=== PATIENT | female | born 1985 | race Caucasian/White ===

== ENCOUNTER 2021-11-28 12:50 | Outpatient (CLI) | payer MEDICAID, SELFPAY ==
--- NOTE | 2021-11-28 13:00 | CRLHL7_ITS ---
For Patients: As a result of the Century Cures Act, medical imaging exams and procedure reports are released immediately into your electronic medical record. You may view this report before your referring provider. If you have questions, please contact your health care provider. INDICATION: Evaluate anatomy. COMPARISON: none TECHNIQUE: Real time bingham scale imaging of the fetus was performed as well as color Doppler analysis of the umbilical vessels. FINDINGS: Sonographic imaging demonstrates a single living intrauterine gestation. Fetus demonstrates a regular cardiac rate of 147 beats per minute. Fetus has a breech position. The placenta lies anteriorly without evidence of placenta previa. The edge of the placenta is located 8 cm from the internal cervical os. Amniotic fluid volume appears normal. Single deepest vertical pocket: 5.7 cm. The cervix is closed and measures 1.8 cm in length with transvaginal technique. The composite ultrasound gestational age is calculated at 23 weeks 0 days with an estimated sonographic due date of 03/27/2022. The estimated weight is 585 grams. The following biometric measurements were obtained: Biparietal diameter: 5.5 cm/22 weeks 5 days Head circumference: 20.1 cm/22 weeks 1 day Abdominal circumference: 18.9 cm/23 weeks 5 days Femur length: 4.1 cm/23 weeks 2 days The HC/AC ratio measures: 1.06 range (1.05-1.21) On anatomic survey, there is a normal appearance of the cerebral ventricles, cavum septi pellucidi, cisterna magna and cerebellum. The nose, lips, and facial profile appear normal. The cervical, thoracic and lumbar spine are well visualized and appear normal. There is a normal four-chamber heart view and the left and right ventricular outflow tracts appear normal. The diaphragm and stomach appear normal. The kidneys and bladder also appear normal. There is a normal three-vessel cord and cord insertion site. The four extremities appear normal. IMPRESSION: Normal anatomic survey. Sonographic age 23 weeks 0 days and sonographic due date 03/27/22. Dictated by Dmitry Holden MD @ 11/28/2021 2:17:23 PM (Electronically Signed)
== END 2021-11-28 12:51 | disposition home or self-care (01) ==
LOC: US 12:51
PROVIDERS: PCP Obstetrics & Gynecology; Visit Provider Physician Assistant
DX: O09.32 Supervision of pregnancy with insufficient antenatal care, second trimester (principal); O26.872 Cervical shortening, second trimester; O09.292 Supervision of pregnancy with other poor reproductive or obstetric history, second trimester; Z36.89 Encounter for other specified antenatal screening; Z3A.23 23 weeks gestation of pregnancy
CPT/HCPCS: 76805; 76817; 86592; 86703; 86762; 86803; 86850; 86900; 86901; 87086; 87340; 87491; 87591

== ENCOUNTER 2021-12-29 14:53 | Outpatient (CLI) | payer MEDICAID, SELFPAY ==
--- OUTSIDE RECORDS SUMMARY | 2021-12-29 14:26 | XMS_ITS | Encounter Summary ---
:1985 Author Organization [facility] [place] Address [address] [place] [address] Care Team Providers Name Role Phone No Ref-Primary, Physician Primary Care Provider [phone] Reason for Visit Reason Comments Labor Auth/Cert Specialty Diagnoses / Procedures Referred By Contact Refer red To Contact director of rotc Diagnoses Cervical shortening Cervical shortening Ur [facility] [address] [place] [address] Phone: Referral ID Status Reason Start Date Expiration Date Visits Requ ested Visits Authorized [id number] 1 1 Encounter Details Date Type Department Care Team Description 12/01/2021 Surgery [facility] Jacqueline Damon AGE, CERVIX, [facility] DO Anca VAGINAL APPROACH [address] [place] [address] [address] [place], [place] [address] (Wo rk) Surgery Details Date/Time Status Location OR Service Patient Class Case Case Trauma Class Type Case? 12/01/21 9:30 Posted UR L+D UR Z Obstetrics Inpatient AM LD 01 Panel 1 Procedure LRB Anes Op Region Wound Class Commen ts CERCLAGE, CERVIX, VAGINAL APPROACH N/A Spinal Cervix I -Clean Surgeon Surgeon Role Service Panel Jacqueline Damon DO Primary Obstetrics 1 Bev Novoa MD Resident - Assisting 1 documented in this encounter Social History Tobacco Use Types Packs/Day Years Used Date Never Smoker Smokeless Tobacco: Never Used Alcohol Use Standard Drinks/Week Comments Not Currently 0 (1 standard drink = 0.6 oz pure alcoho l) Alcohol Habits Answer Date Recorded How often do you have a drink containing alcohol? Never 02/02/2021 How many drinks containing alcohol do you have on a typical Not asked day when you are drinking? How often do you have six or more drinks on one occasion? No t asked Comment: Not asked Sex Assigned at Date Recorded Not on file COVID-19 Exposure Response Date Recorded In the last 10 days, have you been in contact with No / Unsu re 11/30/2021 1:16 PM CDT someone who was confirmed or suspected to have Coronavirus/COVID-19? documented as of this encounter Last Filed Vital Signs Vital Sign Reading Time Taken Comments Blood Pressure 111/71 12/01/2021 10:45 AM CDT Pulse 99 12/01/2021 10:47 AM CDT Temperature 36.6 ??C (97.9 ??F) 12/01/2021 7:43 AM CDT Respiratory Rate 16 12/01/2021 7:43 AM CDT Oxygen Saturation 99% 12/01/2021 10:48 AM CDT Inhaled Oxygen Concentration - - Weight 66.7 kg (147 lb) 11/30/2021 3:52 PM CDT Height 162.6 cm (5' 4) 11/30/2021 3:52 PM CDT Body Mass Index 25.23 11/30/2021 3:52 PM CDT documented in this encounter Discharge Summaries Jacqueline Damon DO - 12/01/2021 10:34 AM CDT [facility] Discharge Summary Neyda Stauffer Age: [age] year old Date of : 1985 Date of Admission: 11/30/2021 Date of Discharge: 12/01/2021 Admitting Physician: Jacqueline Damon DO Discharge Physician: Jacqueline Damon DO Admission Diagnosis: - Shortened cervix - History of recurrent loss x2 (13w and 16w) - History of delivery at 36w5d - Depression - History of HSV Discharge Diagnosis: Same Procedures: Zhou cerclage placement Consultations: Anesthesia Medications prior to admission: Medications Prior to Admission Medication Sig Dispense Refill Last Dose ??? MV-Min-Fe Fum-FA-DHA ( 1 PO) 11/29/2021 at Unknown time ??? progesterone (PROMETRIUM) [address] 200 mg vaginally At Bedtime Brief History of Presentation: Neyda Stauffer is a 36 year old at 23w2d by LMP c/w 1st tri US who presents for shortened cervix diagnosed on ultrasound 2 days at an outside hospital ago and confirmed w/ cervical length of 22mm by [facility] was [facility] for US-indicated cerclage placement. Hospital Course: Patient was counseled on her options for management and decided to proceed with vaginal cerclage as well as vaginal progesterone through this . On HD#2, she underwent vaginal Zhou cerclage placement without complications. She was monitored for several hours after the procedure without any concern for contractions or developing labor and was discharged home in stable condition. Discharge Instructions: Call or present to labor and delivery if you experience: -Regular painful contractions concerning for labor -Leakage of fluid concerning for ruptured membranes -Decreased movement -Bright red vaginal bleeding -Headache, vision changes, upper abdominal pain, significant increase in swelling, generalized unwell feeling Follow up: Follow up with OB within the next 1-2 weeks. Discharge Medications: Current Facility-Administered Medications Medication ??? acetaminophen (TYLENOL) tablet 650 mg ??? [START ON 12/02/2021] bisacodyl (DULCOLAX) suppository 10 mg ??? diphenhydrAMINE (BENADRYL) capsule 25 mg Or ??? diphenhydrAMINE (BENADRYL) injection 25 mg ??? hydrOXYzine (ATARAX) tablet 50 mg ??? lidocaine (LMX4) cream ??? lidocaine 1 % 0.1-1 mL ??? metoclopramide (REGLAN) injection 10 mg Or ??? metoclopramide (REGLAN) tablet 10 mg ??? naloxone (NARCAN) injection 0.2 mg Or ??? naloxone (NARCAN) injection 0.4 mg Or ??? naloxone (NARCAN) injection 0.2 mg Or ??? naloxone (NARCAN) injection 0.4 mg ??? No Tdap Needed - Assessment: Patient does not need Tdap vaccine ??? ondansetron (ZOFRAN ODT) ODT tab 4 mg Or ??? ondansetron (ZOFRAN) injection 4 mg ??? oxyCODONE (ROXICODONE) tablet 5 mg ??? prochlorperazine (COMPAZINE) injection 10 mg Or ??? prochlorperazine (COMPAZINE) tablet 10 mg Or ??? prochlorperazine (COMPAZINE) suppository 25 mg ??? progesterone (PROMETRIUM) capsule 200 mg ??? sodium chloride (PF) 0.9% PF flush 3 mL ??? sodium chloride (PF) 0.9% PF flush 3 mL ??? [START ON 12/02/2021] sodium phosphate (FLEET ENEMA) 1 enema Yoli Rolle MD Maternal Medicine Fellow FACULTY DISCHARGE NOTE: I saw and examined the patient today. See findings as documented in today's progress note. I reviewed the discharge plan with the resident, and agree with the final assessment and plan for discharge asnoted in the resident's discharge summary. I personally spent 20 minutes today on discharge activities for this patient. Jacqueline Damon DO FACOG Maternal Medicine Specialist Pager: [phone] documented in this encounter Discharge Instructions Discharge InstructionsMarjorie Kenney RN - 12/01/2021 2:52 PM CDT Undelivered Patients Discharge Instructions: Irish La vieron por: cervical cerclage placement Consultamos a: Maternal Medicine Le hicieron/recibi?? (examen o medicamento):cervical cerclage Dieta: Drink 8 to 12 glasses of liquids (milk, juice, water) every day. You may eat meals and snacks. Actividad: Call your doctor or nurse core winder machine operator if your baby is moving less than usual. Llame a nguyen proveedor si nota: Hinchaz??n en el malinda o aumento de la hinchaz??n en maylin radha o piernas. Shruti de myra que no se alivian con Tylenol (acetaminof??n). Cambios en nguyen visi??n (borrosa: ve manchas o estrellas.) N??useas (sensaci??n de malestar estomacal) y v??mitos (devolver). Aumento de peso de 5 libras o m??s por semana. Acidez estomacal que no se marion. Signos de infecci??n de vejiga: dolor al orinar (hacer pis), necesidad de ir con m??s frecuencia y m??s urgencia. Se rompe la bolsa (ruptura de membranas) o nota que gotea en nguyen ropa interior. Joel maggie brillante en nguyen ropa interior. Dolor en la parte baja del vientre (abdomen) o est??wesley. Para el primer beb??: Contracciones (tirantez) con menos de 5 minutos de diferencia entre roly y otrapor roly hora o m??s. Tijeras beb?? (en adelante): Contracciones (tirantez) con menos de 10 minutos de diferencia entre roly y otra y cada vez m??s vazquez. Aumento o cambio en las secreciones vaginales (note el color y la cantidad) Antes de las 37 semanas, llame si nota los siguientes: Contracciones que se danish cada 10 minutos o m??s Cambios en las secreciones vaginales Presi??n p??lvica Dolor de espalda sordo en la barbi??n lumbar Calambres que se sienten naida roly menstruaci??n Calambres abdominales con o sin diarrea Seguimiento: Otro: As scheduled in the clinic documented in this encounter Medications at Time of Discharge Medication Sig Dispensed Refills Start Date End Date MV-Min-Fe 0 Fum-FA-DHA ( 1 PO) progesterone (PROMETRIUM) Place 200 mg vaginally 0 200 MG capsule At Bedtime documented as of this encounter Progress Notes Mishel Luna RN - 12/01/2021 11:16 AM CDT Pt VSS in PACU. Pt resting well in between cares. Doptones completed 140s. Pt able to eat ice chips without issue. Pt stable to transfer back to ante for remainder of recovery. IAT Jacqueline Damon DO - 12/01/2021 8:11 AM CDT MFM Antepartum Progress Note Subjective: Today, she is feeling well. Denies contractions, leaking of fluid, vaginal bleeding, or decreased movement. culture room worker used via telephone. Objective: Vitals: 11/30/21 2130 11/30/21 2330 12/01/21 0330 12/01/21 0743 BP: 104/63 110/52 112/53 118/62 BP Location: Right arm Left arm Left arm Patient Position: Semi-Hillman's Semi-Hillman's Semi-Hillman's Cuff Size: Adult Regular Adult Regular Adult Regular Pulse: 95 Resp: 16 16 16 16 Temp: 98.5 ??F (36.9 ??C) 98.2 ??F (36.8 ??C) 97.9 ??F (36.6 ??C) TempSrc: Oral Oral Oral Weight: Height: Gen: Resting comfortably in bed, NAD CV: RRR, no murmurs Resp: CTAB, no wheezes, no crackles Abd: Gravid, non-tender, non-distended Ext: non-tender, no edema FHT: BL 145bpm, moderate variability, accels, no decels, appropriate for gestational age Yoder: no contractions Ultrasound, 12/01/2021: 1) Rogers intrauterine at 23w 2d gestational age. 2) None of the anomalies commonly detected by ultrasound were evident in the detailed anatomicsurvey described above. 3) Growth parameters and estimated weight were consistent with an appropriate for gestation age pattern of growth. 4) The amniotic fluid volume appeared normal. 5) There is cervical shortening with a residual cervical length of 22 mm by transvaginal imaging. Assessment/Plan: Neyda Stauffer is a 36 year old @ 23w3d by LMP c/w first trimester US, admitted forshort cervix of 22 mm for monitoring and ultrasound indicated cerclage. We reviewed consent for Rios cerclage. Risks including bleeding, infection, and damage to nearbystructures/organs such as the vagina, cervix, bladder, or rectum. Discussed that cerclage does not prevent labor or cause intra- amniotic infection, but that cerclage would be removed should this occur. Otherwise, cerclages are typically removed 36-37 weeks in the office. She accepts these risks and consent was signed. All questions were answered to her satisfaction with a culture room worker. # Short cervix - Consent as above for Rios cerclage - NPO since midnight - Continue vaginal progesterone 200 mg at bedtime - Tylenol PRN for discomfort - Return precautions reviewed - Anticipate discharge this afternoon # FWB - FHT appropriate for gestational age - Continuous monitoring - Intrauterine resuscitative measures PRN Patient seen and discussed with Dr. Damon. Yoli Rolle MD Maternal Medicine Fellow Physician Attestation IJacqueline DO, saw and evaluated Neyda Stauffer with the fellow. I personally reviewed the vital signs, medications, labs and imaging. My herrera history or physical exam findings: No complaints Herrera management decisions made by me: to OR for cerclage this morning NST: reassuring for gestational age. Jacqueline Damon DO Date of Service (when I saw the patient): 12/01/21 Time Spent on this Encounter Jacqueline Davis DO, spent a total of 15 minutes face to face or coordinating care of Neyda Stauffer. Over 50% of my time on the unit was spent counseling the patient and/or coordinating care regarding US indicated cerclage. documented in this encounter H&P Notes Jacqueline Damon DO - 11/30/2021 5:00 PM CDT [facility] OB History and Physical Neyda Stauffer Age: [age] year old Date of : 1985 CC: Shortened cervix Phone culture room worker present HPI: Neyda Stauffer is a 36 year old at 23w2d by LMP c/w 1st tri US who presents for shortened cervix diagnosed on ultrasound 2 days ago at an outside hospital. She denies contractions, vaginal bleeding, and loss of fluid. Endorses normal movement. She states that she started using vaginal progesterone last night. Complications: - Shortened cervix - History of recurrent loss x2 (13w and 16w) - History of delivery at 36 weeks 5 days - Depression - History of HSV Labs: Lab Results Component Value Date Negative 02/02/2021 HGB 9.9 (L) 02/02/2021 GBS Status: No results found for: GBS Ultrasounds [facility] US Comprehensive Single Narrative: Comprehensive Pat. Name: NEYDA JIANG Study Date: 11/30/2021 1:26pm Pat. NO: [id number] Referring MD: DANNY JEAN Site: [facility] [employer] Scoreboard Operator: Kaia Tate RDMS : 1985 Age: 36 INDICATION Short cervix visualized on outside ultrasound. METHOD Transabdominal ultrasound examination. View: Sufficient Rogers . Number of fetuses: 1 DATING Date Details Gest. age WILL Prior assessment 11/28/2021 GA: 23 w + 0 d 23 w + 2 d 03/27/2022 U/S 11/30/2021 based upon AC, BPD, Femur, HC 23 w + 2 d 03/27/2022 Assigned dating Dating performed on 11/30/2021, based on the prior assessment (on 11/28/2021) 23 w +2 d 03/27/2022 GENERAL EVALUATION Cardiac activity present. FHR 147 bpm. movements visualized, present. Presentation breech. Placenta Anterior, No Previa, > 2 cm from internal os. Umbilical cord 3 vessel cord. Amniotic fluid Amount of AF: normal. MVP 4.3 cm. BIOMETRY Main Biometry: BPD 55.6 mm 23w 0d Hadlock OFD 74.2 mm 22w 6d Nicolaides HC 207.4 mm 22w 6d Hadlock Cerebellum tr 26.9 mm 24w 3d Nicolaides AC 198.7 mm 24w 4d 79% Hadlock Femur 39.3 mm 22w 5d Hadlock Humerus 38.3 mm 23w 4d [facility] Weight Calculation: EFW 609 g 56% Hadlock EFW (lb,oz) 1 lb 5 oz EFW by Hadlock ([id number]) Head / Face / Neck Biometry: Netsuite Developer 5.8 mm CM 2.8 mm Nasal bone 7.3 mm ANATOMY The following structures appear normal: Head / Neck Cranium. Head size. Head shape. Lateral ventricles. Choroid plexus. Midline falx. Cavum septi pellucidi. Cerebellum. Cisterna magna. Parenchyma. Thalami. Vermis. Neck. Nuchal fold. Face Lips. Profile. Nose. Maxilla. Mandible. Orbits. Lens. Heart / Thorax 4-chamber view. RVOT view. LVOT view. Situs. Aortic arch view. Bicaval view. Ductal arch view. Superior vena cava. Inferior vena cava. 3-vessel view. 1-pgrhdy-ufogkha view. Cardiac position. Cardiac size. Cardiac rhythm. Right lung. Left lung. Diaphragm. Abdomen Abdominal wall. Cord insertion. Stomach. Kidneys. Bladder. Liver. Bowel. Genitals. Spine Cervical spine. Thoracic spine. Lumbar spine. Sacral spine. Extremities / Skeleton Right arm. Right hand. Left arm. Left hand. Right leg. Right foot. Left leg. Left foot. Gender: female. MATERNAL STRUCTURES Cervix Visualized Appearance: Appears Closed Approach - Transvaginal: Cervical length 22.0 mm Funneling present Right Ovary Visualized Left Ovary Visualized RECOMMENDATION We discussed the findings on today's ultrasound with the patient. On today's ultrasound cervical shortening was noted. We confirmed that she has a prior history of delivery with her last delivering at 36 weeks gestation. She denies signs/symptoms of labor or overt infection. We discussed that the ultrasound findings of a short cervix in conjunction with a history of prior significantly increase her risk for delivery. We reviewed available options for her in this setting including expectant management, vaginal progesterone, or ultrasound indicated indicated cerclage. Neyda has already started vaginal progesterone 200 mg two days ago. Given her history of prior I would recommend cervical cerclage at this time to reduce the risk for recurrent . We reviewed the risks associated with cerclage, including the small risk for infection, bleeding, premature rupture of membranes. Based on our entire discussion she is interested in proceeding with an ultrasound-indicated cerclage at this time. [facility] was notified and the case was discussed with the on-call MFM (Dr. Damon). She was sent straight from our clinic for evaluation/cerclage placement. Further ultrasound studies as clinically indicated. Return to primary provider for continued care. Thank you for the opportunity to participate in the care of this patient. If you have questions regarding today's evaluation or if we can be of further service, please contact the [facility]. anomalies may be present but not detected I spent a total of 25 minutes on the date of this encounter in the care of Neyda Stauffer, includin minutes reviewing the patient's chart 15 minutes in direct patient contact 3 minutes documenting in the medical record 4 minutes in discussion with consultants/other providers Please see note for details. Impression: IMPRESSION 1) Rogers intrauterine at 23w 2d gestational age. 2) None of the anomalies commonly detected by ultrasound were evident in the detailed anatomicsurvey described above. 3) Growth parameters and estimated weight were consistent with an appropriate for gestation age pattern of growth. 4) The amniotic fluid volume appeared normal. 5) There is cervical shortening with a residual cervical length of 22 mm by transvaginal imaging. OB History OB History Para Term AB Living 6 3 2 1 2 3 SAB IAB Ectopic Multiple Live Births 1 0 0 0 3 # Outcome Date GA Lbr Nilay/2nd Weight Sex Delivery Anes PTL Lv 6 Current 5 Vag-Spont FRANSICO 4 AB 3 Term FRANSICO 2 SAB 1 Term FRANSICO PMHx: History reviewed. No pertinent past medical history. PSHx: Past Surgical History: Procedure Laterality Date ??? WISDOM TOOTH EXTRACTION Bilateral 2018 Meds: Medications Prior to Admission Medication Sig Dispense Refill Last Dose ??? MV-Min-Fe Fum-FA-DHA ( 1 PO) 11/29/2021 at Unknown time Allergies: No Known Allergies FmHx: History reviewed. No pertinent family history. ROS: Negative except as noted in HPI. She denies headache, blurry vision, chest pain, shortness of breath, RUQ pain, nausea, vomiting, dysuria, hematuria or extremity edema. PE: Vit: Patient Vitals for the past 4 hrs: BP Temp Temp src Pulse Resp Height Weight 11/30/21 1552 116/57 98.1 ??F (36.7 ??C) Oral 92 16 1.626 m (5' 4) 66.7 kg (147 lb) Gen: Well-appearing, NAD, comfortable CV: Well perfused Pulm: Breathing comfortably on RA Abd: Soft, gravid, non-tender Ext: Trace LE edema b/l SSE: Visually closed, scant discharge, no bleeding or pooling FHT: Baseline 145, mod variability, + accelerations, occasional variable decelerations Yoder: Quiet, no contractions Assessment Ms. Neyda Stauffer is a 36 year old , at 23w2d by LMP c/w 1st trimester US admitted for US-indicated cerclage for shortened cervix. notable for short cervix, h/o recurrent loss at 13w and 16w, h/o delviery at 36w5d, h/o HSV, and depression Plan #Short cervix - Cervical length at 22 mm by transvaginal imaging at [facility] ultrasound today - Patient was counseled on her options of vaginal progesterone, cerclage, or both, and she opts for vaginal progesterone and a ultrasound indicated cerclage - No contractions, and cervix visually closed on speculum exam - Plan for ultrasound indicated cerclage in the operating room tomorrow morning - N.p.o. at midnight - Continue vaginal progesterone 200 mg at bedtime # FWB - FHT appropriate for gestational age - Continuous Monitoring - Intrauterine resuscitative measures prn Discussed with Dr. Nelson Novoa MD DISPLAY ARTIST, PGY-3 11/30/2021, 5:00 PM Physician Attestation Jacqueline Davis DO, DO, saw and evaluated Neyda Stauffer with the resident. I have reviewed and discussed with Dr. Novoa their history, physical and plan. I personally reviewed the vital signs, medications, labs and imaging. My herrera history or physical exam findings/herrera findings: Patient was found to have a short cervix on outside US. She has a hx of 2 full term deliveries and a36 week delivery. She was started on vaginal progesterone and seen today in our clinic for an US. While her cvx is stable in length, it is <25 mm which confers a higher risk for PTD. A cerclage is an option for her as well and she would like to undergo cerclage. We reviewed the R/B. We will monitorfor ctx, signs of labor or infection overnight and perform the cerclage in the morning. NST: reassuring for gestational age Yoder: quiet Jacqueline Damon DO Date of Service (when I saw the patient): 11/30/21 Time Spent on this Encounter Jacqueline Davis DO, spent a total of 30 minutes face to face or coordinating care of Neyda Stauffer. Over 50% of my time on the unit was spent counseling the patient and/or coordinating care regarding cervical shortening in the setting of a prior PTB. documented in this encounter Miscellaneous Notes Plan of Care - Marjorie Kenney RN - 12/01/2021 3:09 PM CDT Goal Outcome Evaluation: Plan of Care Reviewed With: patient, spouse Patient okayed to be discharged to home per Dr Damon and MFM team. Patient VSS post cerclage placement, pt able to spontaneously void, tolerating PO, and denies any pain, cramping or bleeding. Discharge instructions given to patient, patient denies any questions at this time. Patient waiting for to pick her up and will be discharged to home. Provider Notification - Marjorie Kenney RN - 12/01/2021 2:50 PM CDT 12/01/21 1445 Provider Notification Provider Name/Title Dr Rolle Method of Notification At Bedside Notification Reason Status Update Patient has ambulated, voided and tolerating solid and liquids well. Plan per provider is to discharge patient to home. Op Note - Jacqueline Damon DO - 12/01/2021 10:30 AM CDT Operative Note: Cervical Cerclage Pre-Op Diagnosis: 1) Single intrauterine at 23w3d by LMP c/w FTUS 2) History of 13 week and 16 week demise 3) History of at 36 weeks and 5 days 4) Short cervix (22 mm) Post-Op Diagnosis: 1) Same Procedure: 1) Rios cervical cerclage, one sutures (knot at 12 o'clock position) Surgeons: Attending: Jacqueline Damon DO Fellow: JOYCE Gurrola Fellow Resident: Bev Novoa MD Anesthesia: Spinal Estimated Blood Loss: 50cc Findings: 1) Cervix closed prior to the procedure, closed following the procedure 2) heart tones confirmed by doptone following the procedure Specimens: 1) None Complications: 1) None apparent History: Neyda Stauffer is a 36 year old at 23w3d by LMP c/w FTUS. She was diagnosed with a short cervix at outside hospital, 22mm. She has history of delivery at 36 week and 5 days, as well asa 13 week and 16 week loss in the past. After counseling regarding these findings, the patient has decided to proceed with ultrasound indicated cerclage. Details of Procedure: After administration of spinal anesthesia the patient was placed in the dorsal lithotomy position and prepped and draped in the usual fashion. A weighted speculum was placed into the vagina and right angle retractors were used to visualize the cervix. The vagina and cervix were copiously cleansed withbetadine solution. The anterior lip of the cervix was grasped with a ring forcep, but there was noted to be ectropion and friable cervix. A stay suture of #2 Ethilon was placed at the external os for traction to avoid use of traumatic grasping. A circumferential suture of #2 Ethilon was placed in the usual fashion at the cervicovaginal reflection with knot tied at 12 o'clock position. The suture was securely tied down and digital exam confirmed that the cervix was closed. The stay suture was cut and removed. The bladder was drained of clear urine. The cervix and vaginal vault were inspected and noted to be free of injury and hemostatic. The instruments were removed from the vagina. She tolerated her spinal anesthesia well without incident. She was subsequently transferred to the recovery room in satisfactory condition. Sponge and needle counts were correct at the close of the case x 2. Dr. Damon was scrubbed and present throughout. Yoli Rolle MD Maternal Medicine Fellow 12/01/2021 10:22 AM FACULTY NOTE: I was present and scrubbed for the entire procedure. Jacqueline Damon DO FACOG Maternal Medicine Specialist Pager: [phone] Plan of Care - Angelica Gastelum RN - 12/01/2021 4:18 AM CDT Data: Maternal status VSS. Afebrile. Denies leaking of fluids, vaginal bleeding, and or contractions. See flow sheets for details on FHR tracings and uterine contractions. Signs and symptoms of infection not present. Response: Patient rested well through the night. Plan: Plan for cerclage at 0930. Patient went on a clear liquids diet at 0000 and NPO at 0600. Continue expectant management. Plan of Care - Jayashree Lopez RN - 11/30/2021 10:39 PM CDT Goal Outcome Evaluation: Plan of Care Reviewed With: patient Overall Patient Progress: improving VSS. Yoder shows no contractions. FHTs AGA. Neyda denies uterine contractions, cramping, pressure, vaginal bleeding, and leaking of fluid. Plan for cerclage in morning. Clear liquids only after 0000 and NPO 2 hours prior to surgery (reviewed with anesthesia team and Dr Garner). Neyda is accepting of plan of care but emotional over being from her children at home. Provider Notification - Jayashree Lopez RN - 11/30/2021 7:53 PM CDT 11/30/211944 Provider Notification Provider Name/Title Dr Damon Method of Notification At Bedside Dr Damon at bedside evaluating Neyda prior to scheduled am cerclage. Neyda has no current complaints. Denies, vaginal discharge, vaginal bleeding, and uterine contractions. Endorses active movement. FHTs reviewed- AGA. No contractions on toco. Ok to be off continuous monitoring. Care Plan - Jayashree Lopez RN - 11/30/2021 5:49 PM CDT Data: Patient presented to [facility] at 1510. Reason for maternal/ assessment per patient is Labor , shortened cervical length. Patient is a . record reviewed. OB History Para Term AB Living 6 3 2 1 2 3 SAB IAB Ectopic Multiple Live Births 1 0 0 0 3 # Outcome Date GA Lbr Nilay/2nd Weight Sex Delivery Anes PTL Lv 6 Current 5 Vag-Spont FRANSICO 4 AB 3 Term FRANSICO 2 SAB 1 Term FRANSICO . Medical history: History reviewed. No pertinent past medical history.. Gestational Age 23w2d. VSS. movement present. Patient denies cramping, backache, vaginal discharge, pelvic pressure, UTI symptoms, GI problems, bloody show, vaginal bleeding, edema, headache, visual disturbances, epigastricor URQ pain, abdominal pain, rupture of membranes. Support persons are not present. Action: Verbal consent for EFM. Triage assessment completed. EFM applied for assessment in setting of shortened cervix. Uterine assessment done- soft, nontender, not maria. assessment: Presumed adequate oxygenation documented (see flow record). Response: Dr. Damon and Dr Novoa informed of arrival. Plan per provider is collect infection labs and cerclage placement in the morning. Patient verbalized agreement with plan. Patient transferred to room 420 ambulatory, oriented to room and call light. documented in this encounter Plan of Treatment Not on filedocumented as of this encounter Procedures Procedure Name Priority Date/Time Associated Diagnosis Comme nts CERCLAGE, CERVIX, 12/01/2021 8:58 AM Cervical VAGINAL APPROACH CDT incompetence URINE MACROSCOPIC Routine 11/30/2021 4:44 PM Resu lts for this WITH REFLEX TO MICRO CDT procedu re are in the results section. URINE CULTURE STAT 11/30/2021 4:44 PM Results for this CDT procedure are i n the results section. COVID-19 VIRUS STAT 11/30/2021 4:17 PM Results for this (CORONAVIRUS) BY PCR CDT procedu re are in the results section. CBC WITH PLATELETS Routine 11/30/2021 4:15 PM Res ults for this AND DIFFERENTIAL CDT procedure a re in the results section. TYPE AND SCREEN, Timed 11/30/2021 4:15 PM Resul ts for this ADULT CDT procedure are i n the results section. CBC WITH PLATELETS & Routine 11/30/2021 4:15 PM R esults for this DIFFERENTIAL CDT procedure are i n the results section. ABO/RH TYPE AND Timed 11/30/2021 4:15 PM Result s for this SCREEN CDT procedure are i n the results section. WET PREPARATION STAT 11/30/2021 4:11 PM Result s for this CDT procedure are i n the results section. GROUP B STREP PCR STAT 11/30/2021 4:11 PM Resu lts for this CDT procedure are i n the results section. documented in this encounter Results Urine Culture (11/30/2021 4:44 PM CDT) P athologist Signature Culture No Growth ABDULKADIR 12/02/2021 UU IDD 6:33 AM CDT LABORATORY Specimen Anatomical Collection Method Collection Time Receive d Time (Source) Location / / Volume Laterality Urine MID-STREAM URINE Non-blood 11/30/2021 4:44 PM 11/30 5:01 SPECIMEN / Unknown Collection / CDT PM CDT Unknown Bev Novoa MD LAB - MICRO GENERAL ORDERABL ES Performing Organization Address City/State/ZIP Code Phon e Number [facility] IDD LABORATORY [facility] [place] [address] Diag. Lab [address] [facility], [address] UA reflex to Microscopic (11/30/2021 4:44 PM CDT) Patholo gist Method Time Signature Color Urine Straw Colorless, 11/30/2021 UR LABORATORY Straw, Light 5:19 PM CDT Yellow, Yellow Appearance Urine Clear Clear 11/30/2021 UR LABORATOR Y 5:19 PM CDT Glucose Urine Negative Negative 11/30/2021 UR LABORATORY mg/dL 5:19 PM CDT Bilirubin Urine Negative Negative 11/30/2021 UR LABORATORY 5:19 PM CDT Ketones Urine Negative Negative 11/30/2021 UR LABORATORY mg/dL 5:19 PM CDT Specific Milner 1.008 1.003 - 11/30/2021 UR LABORATOR Y Urine 1.035 5:19 PM CDT Blood Urine Negative Negative 11/30/2021 UR LABORATORY 5:19 PM CDT pH Urine 6.5 5.0 - 7.0 11/30/2021 UR LABORATORY 5:19 PM CDT Protein Albumin Negative Negative 11/30/2021 UR LABORATORY Urine mg/dL 5:19 PM CDT Urobilinogen Normal Normal, 2.0 11/30/2021 UR LABORATORY Urine mg/dL 5:19 PM CDT Nitrite Urine Negative Negative 11/30/2021 UR LABORATORY 5:19 PM CDT Leukocyte Negative Negative 11/30/2021 UR LABORATORY Esterase Urine 5:19 PM CDT Specimen Anatomical Collection Method Collection Time Receive d Time (Source) Location / / Volume Laterality Urine URINE SPECIMEN Non-blood 11/30/2021 4:44 PM 022 5:01 OBTAINED BY CLEAN Collection / CDT PM CDT CATCH PROCEDURE / Unknown Unknown Narrative UR LABORATORY - 11/30/2021 5:19 PM CDT Microscopic not indicated Bev Novoa MD LAB - URINE ORDERABLES Performing Organization Address City/State/ZIP Code Phon e Number UR LABORATORY [facility] [address] Care Lab [address] [facility], [address] Asymptomatic COVID-19 Virus (Coronavirus) by PCR Nose (11/30/2021 4:17 PM CDT) Analysis Performed At Patho logist Time Signature SARS CoV2 PCR Negative Negative 11/30/2021 UR LABORATORY 5:05 PM CDT Comment: NEGATIVE: SARS-CoV-2 (COVID-19) RNA not detected, presumed negative. Specimen Anatomical Collection Method Collection Time Receive d Time (Source) Location / / Volume Laterality Swab NASAL STRUCTURE / Non-blood 11/30/2021 4:17 PM 11/08 4:39 Unknown Collection / CDT PM CDT Unknown Narrative UR LABORATORY - 11/30/2021 5:05 PM CDT Testing was performed using the leonid?? SARS-CoV-2 & Influenza A/B Assay on the leonid?? Mikala?? System. ??This test shoul d be ordered for the detection of SARS-COV-2 in individuals who meet SARS-CoV-2 clini marly and/or epidemiological criteria. Test performance is unknown in asymptomatic p atients. ??This test is for in vitro diagnostic use under the FDA EUA for lab oratories certified under CLIA to perform moderate and/or high complexity testing. This test has not been FDA cleared or approved. ??A negative test does not rul e out the presence of PCR inhibitors in the specimen or target RNA in concentration below the limit of detection for the assay. The possibility of a false negative shou ld be considered if the patient's recent exposure or clinical presentation sugges ts COVID-19. ??[facility] are certified under the Clinical Laborat ory Improvement Amendments of 1988 (CLIA-88) as qualified to perform moderate and/or high complexity laboratory testing. Bev Novoa MD LAB - MICRO GENERAL ORDERABL ES Performing Organization Address City/State/ZIP Code Phon e Number UR LABORATORY [facility] [place] [address] Care Lab [address] [place] [address], Room [address] Adult Type and Screen (11/30/2021 4:15 PM CDT) [facility] Method Time Signature ABO/RH(D) O POS 11/30/2021 UR BLOOD 4:00 PM CDT BANK Antibody Negative Negative 11/30/2021 UR BLOOD Screen 4:00 PM CDT BANK SPECIMEN [id number] 11/30/2021 UR BLOOD EXPIRATION 4:00 PM CDT BANK DATE Specimen Anatomical Collection Method / Collection Time Recei melvi Time (Source) Location / Volume Laterality Blood STRUCTURE OF LEFT Venipuncture / 11/30/2021 4:15 11/30 4:44 UPPER LIMB / Unknown PM CDT PM CDT Unknown Bev Novoa MD LAB - BLOOD BANK TEST ORDER Performing Organization Address [facility] Phon e Number UR BLOOD BANK [facility] [place] [address] Components Lab [address] [facility], [address] (ABNORMAL) CBC with platelets and differential (11/30/2021 4:15 PM CDT) [facility] Method Time Signature WBC Count 9.1 4.0 - 11/30/2021 UR LABORATORY 11.0 5:31 PM CDT 10e3/uL RBC Count 3.63 (L) 3.80 - 11/30/2021 UR LABORATORY 5.20 5:31 PM CDT 10e6/uL Hemoglobin 10.6 (L) 11.7 - 11/30/2021 UR LABORATORY 15.7 g/dL 5:31 PM CDT Hematocrit 31.9 (L) 35.0 - 11/30/2021 UR LABORATORY 47.0 % 5:31 PM CDT MCV 88 78 - 100 11/30/2021 UR LABORATORY fL 5:31 PM CDT MCH 29.2 26.5 - 11/30/2021 UR LABORATORY 33.0 pg 5:31 PM CDT MCHC 33.2 31.5 - 11/30/2021 UR LABORATORY 36.5 g/dL 5:31 PM CDT RDW 13.6 10.0 - 11/30/2021 UR LABORATORY 15.0 % 5:31 PM CDT Platelet Count 318 150 - 450 11/30/2021 UR LABORATORY 10e3/uL 5:31 PM CDT % Neutrophils 69 % 11/30/2021 UR LABORATORY 5:31 PM CDT % Lymphocytes 23 % 11/30/2021 UR LABORATORY 5:31 PM CDT % Monocytes 5 % 11/30/2021 UR LABORATORY 5:31 PM CDT % Eosinophils 3 % 11/30/2021 UR LABORATORY 5:31 PM CDT % Basophils 0 % 11/30/2021 UR LABORATORY 5:31 PM CDT % Immature 0 % 11/30/2021 UR LABORATORY Granulocytes 5:31 PM CDT NRBCs per 100 0 <1 /100 11/30/2021 UR LABORATORY WBC 5:31 PM CDT Absolute 6.3 1.6 - 8.3 11/30/2021 UR LABORATORY Neutrophils 10e3/uL 5:31 PM CDT Absolute 2.1 0.8 - 5.3 11/30/2021 UR LABORATORY Lymphocytes 10e3/uL 5:31 PM CDT Absolute 0.4 0.0 - 1.3 11/30/2021 UR LABORATORY Monocytes 10e3/uL 5:31 PM CDT Absolute 0.3 0.0 - 0.7 11/30/2021 UR LABORATORY Eosinophils 10e3/uL 5:31 PM CDT Absolute 0.0 0.0 - 0.2 11/30/2021 UR LABORATORY Basophils 10e3/uL 5:31 PM CDT Absolute 0.0 <=0.4 11/30/2021 UR LABORATORY Immature 10e3/uL 5:31 PM CDT Granulocytes Absolute NRBCs 0.0 10e3/uL 11/30/2021 UR LABORATORY 5:31 PM CDT Specimen Anatomical Collection Method / Collection Time Recei melvi Time (Source) Location / Volume Laterality Blood STRUCTURE OF LEFT Venipuncture / 11/30/2021 4:15 11/30 4:44 UPPER LIMB / Unknown PM CDT PM CDT Unknown Bev Novoa MD LAB - BLOOD ORDERABLES Performing Organization Address City/State/ZIP Code [place] [address] Care Lab [address] [facility], [address] Group B strep PCR (11/30/2021 4:11 PM CDT) Analysis Performed At Patho logist Time Signature Group B Strep Negative Negative 12/01/2021 [facility] ID[facility] PCR 8:59 PM CDT LABORATORY Comment: Presumed negative for Streptoco ccus agalactiae (Group B Streptococcus) or the number of organisms may be below the limit of detection of the assay. Specimen Anatomical Location Collection Method Collection Time Received Time (Source) / Laterality / Volume Swab STRUCTURE OF Non-blood 11/30/2021 4:11 11/30/2021 4 :39 RECTOVAGINAL SEPTUM Collection / PM CDT PM CDT / Unknown Unknown Narrative [facility] LABORATORY - 12/01/2021 8:59 PM C DT The [employer] Xpert GBS LB Assay, performe d on the [employer]?? Instrument Systems, is a qualitative in vitro diagnostic test [place] igned to detect Group B Streptococcus (GBS) DNA from enriched vaginal/rectal swab sp ecimens, using fully automated, real-time polymerase chain reaction (PCR) with flu orogenic detection of the amplified DNA. Xpert GBS LB Assay testing is indicated as an aid in determining GBS colonization status in antepartum women. This assay d oes not diagnose or monitor treatment for GBS infections. The [employer] Xpert GBS LB Ass ay is intended for use in hospital, reference or state laboratory settings. The device is not intended for [id number] use. Bev Novoa MD LAB - MICRO GENERAL ORDERABL ES Performing Organization Address City/State/ZIP Code Phon e Number [facility]U IDD LABORATORY [facility] [place] [address] Diag. Lab [address] [facility], [address] (ABNORMAL) Wet prep (11/30/2021 4:11 PM CDT) Analysis Performed At Patho logist Time Signature Trichomonas Absent Absent ABDULKADIR 11/30/2021 UR LABORATORY 5:03 PM CDT Yeast Absent Absent ABDULKADIR 11/30/2021 UR LABORATORY 5:03 PM CDT Clue Cells Absent Absent ABDULKADIR 11/30/2021 UR LABORATORY 5:03 PM CDT WBCs/high power 3+ (A) None ABDULKADIR 11/30/2021 UR LABORATORY field 5:03 PM CDT Specimen Anatomical Collection Method Collection Time Receive d Time (Source) Location / / Volume Laterality Swab VAGINAL STRUCTURE Non-blood 11/30/2021 4:11 PM 11/08 4:39 / Unknown Collection / CDT PM CDT Unknown Bev Novoa MD LAB - MICRO GENERAL ORDERABL ES Performing Organization Address City/State/ZIP Code Phon e Number UR LABORATORY [facility] [place] [address] Care Lab [address] [facility], [address] documented in this encounter Visit Diagnoses Diagnosis Cervical shortening in second trimester - Primary Cervical shortening, antepartum conditio n or complication Cervical incompetence Cervical incompetence, unspecified as to episode of care in documented in this encounter Admitting Diagnoses Diagnosis Cervical shortening documented in this encounter Administered Medications Inactive Administered Medications - up to 3 most recent administrations Medication Order MAR Action Action Date Dose Rate Site diphenhydrAMINE (BENADRYL) capsule 25 mg 25 mg, Oral, EVERY 6 HOURS PRN, itching, Starting on W ed 11/30/21 at 1552, Antepartum diphenhydrAMINE (BENADRYL) injection 25 mg 25 mg, Intravenous, EVERY 6 HOURS PRN, i tching, Starting on Sun11/30/21 at 1552, Give IV only if unable to take PO, Antepartum hydrOXYzine (ATARAX) tablet 50 mg Given 11/30/2021 9:46 PM CDT 50 mg 50 mg, Oral, AT BEDTIME PRN, sleep, Starting on Sun11/30/21 at 1552, Antepartum indomethacin (INDOCIN) capsule 50 mg Given 12/01/2021 11:06 AM CDT 50 mg 50 mg, Oral, ONCE, On Pinky 12/01/21 at 1100, For 1 dose lactated ringers infusion New Bag 12/01/2021 7:41 AM CDT 200 mL/hr at 125 mL/hr, Intravenous, CONTINUOUS, Starting on Pinky 12/01/21 at 0000, Until Pinky 12/01/21 at 1032 metoclopramide (REGLAN) injection 10 mg 10 mg, Intravenous, Administer over 2 Mi nutes, EVERY 6 HOURS PRN, nausea, vomiting, Starting on 11/30/22 at 1548, This is Step 1 of OB nausea and vomiting management. If nausea is not resolved in 30 minutes, go to Step 2 (Zofran). Avoid use if patient has full bowel obstruction or perforati on. Irritant., Antepartum metoclopramide (REGLAN) tablet 10 mg 10 mg, Oral, EVERY 6 HOURS PRN, nausea and vomiting, S tarting on 11/30/21 at 1548, This is Step 1 of OB nausea and vomiting managem ent. If nausea is not resolved in 30 minutes, go to Step 2 (Zo anselmo) Avoid use if patient has full bowel obstruction or perforation., Antepartum naloxone (NARCAN) injection 0.2 mg 0.2 mg, Intravenous, EVERY 2 MIN PRN, op ioid reversal, Starting on Pinky 12/01/21 at 1114, Administer intravenous route when available and notify provider when administered. For unintended sedation or respiratory depression if all of the below criteria are met: ~ respiratory rate LES S than or EQUAL to 8. ~SaO2 less than 92% and or/end-tidal CO2 is greater than 50. ~ the patient is receiving an opioid, has unintended sedations assessed as RASS (-3), and is cur rently not on mechanical ventilation. RASS scale moderate (-3) is movement or eye opening to voice but no eye contact. Patient Monitoring Once the patient has demonstrated a response to the naloxone, continue to monitor respiratory rate, depth, oxygen saturation and end-tidal CO2 (if available) every 15 mi nutes x 2, then every 30 minutes x 2, then every 1 hour x 1 after each naloxone dose. Consider tr ansfer to ICU if patient respiratory parameters have not improved after 4 nalox one doses. naloxone (NARCAN) injection 0.2 mg 0.2 mg, Intramuscular, EVERY 2 MIN PRN, opioid reversal, Starting on Pikny 12/01/21 at 1114, Administer intramuscular if an int ravenous route is not available and notify provider when administered. For unintend ed sedation or respiratory depression if all of the below criteria are met: ~ respiratory rate LESS than or EQUAL to 8. ~SaO2 less than 92% and or/end-tidal CO2 is greater th an 50. ~ the patient is receiving an opioid, has unintended sedations assessed as RASS (-3), and is currently not on mechanical ventilation. RASS scale moderate (-3) is movement or eye opening to voice but no eye contact. Patient Monitoring Once the patient has demonstrated a response to the naloxone, continue to m onitor respiratory rate, depth, oxygen saturation and end-tidal CO2 (if availab le) every 15 minutes x 2, then every 30 minutes x 2, then every 1 hour x 1 after each naloxone dose. Consider transfer to ICU if patient respiratory parameters have not improved after 4 naloxone doses. naloxone (NARCAN) injection 0.4 mg 0.4 mg, Intravenous, EVERY 2 MIN PRN, op ioid reversal, Starting on Pinky 12/01/21 at 1114, Administer intravenous route when available and notify provider when administered. For unintended sedation or respiratory depression if all of the below criteria are met: ~ respiratory rate LES S than or EQUAL to 8. ~ SaO2 less than 92% and or/end-tidal CO2 is greater than 50. ~ the patient is receiving an opioid, has unintended sedation assessed as RASS (-4 ) or (-5) and patient is currently not on mechanical ventilation. RASS scale (-4) is deep sedation with no response to voice but movement or eye opening to physical stimulation. R ASS scale (-5) is unarousable. Patient Monitoring Once the patient has demonstrated a response to the naloxone, continue to monitor respiratory rate, depth, oxygen saturation and end-tidal CO2 (if available) every 15 mi nutes x 2, then every 30 minutes x 2, then every 1 hour x 1 after each naloxone dose. Consider tr ansfer to ICU if patient respiratory parameters have not improved after 4 nalox one doses. naloxone (NARCAN) injection 0.4 mg 0.4 mg, Intramuscular, EVERY 2 MIN PRN, opioid reversal, Starting on Pinky 12/01/21 at 1114, Administer intramuscular if an int ravenous route is not available and notify provider when administered. For unintend ed sedation or respiratory depression if all of the below criteria are met: ~ res piratory rate LESS than or EQUAL to 8. ~ SaO2 less than 92% and or/end-tidal CO2 is greater freida n 50. ~ the patient is receiving an opioid, has unintended sedation assessed as RASS (-4) or (-5) and patient is currently not on mechanical ventilation. RA SS scale (-4) is deep sedation with no response to voice but movement or eye opening to physical stimulation. RASS scale (-5) is unarousa ble. Patient Monitoring Once the patient has demonstrated a response to the nalox one, continue to monitor respiratory rate, depth, oxygen saturation and end-tidal CO2 (if availab le) every 15 minutes x 2, then every 30 minutes x 2, then every 1 hour x 1 after each naloxone dose. Consider transfer to ICU if patient respiratory parameters have not improved after 4 naloxone doses. ondansetron (ZOFRAN ODT) ODT tab 4 mg 4 mg, Oral, EVERY 6 HOURS PRN, nausea, v omiting, Starting on Sun11/30/21 at 1548, This is Step 2 of OB nausea and vomiting management. Give If nausea not resolved in 30 minutes after giving metoclopramide ( REGLAN). If nausea is not resolved in 15 minutes, go to Step 3 (Compazine). With dry hands, pee l back foil backing and gently remove tablet. Do not push oral d isintegrating tablet through foil backing. Administer immediately on tongue and oral disintegrati ng tablet dissolves in seconds, then swallow with saliva. Liquid not required ., Antepartum ondansetron (ZOFRAN) injection 4 mg 4 mg, Intravenous, EVERY 6 HOURS PRN, nausea, vomiting , Administer over 2-5 Minutes, Starting on Sun11/30/21 at 1548 , This is Step 2 of OB nausea and vomiting management. Give if nausea not resolved 30 minutes aft er giving metoclopramide (REGLAN). If nausea is not resolved in 15 minutes, go to Step 3 (Compazine). Irritant., Antepartum oxyCODONE (ROXICODONE) tablet 5 mg 5 mg, Oral, EVERY 4 HOURS PRN, moderate to severe pain, Starting on Pinky 12/01/21 at 1102, Max: 5 mg for opioid-na??ve patient., PACU/Phase II prochlorperazine (COMPAZINE) injection 1 0 mg 10 mg, Intravenous, EVERY 6 HOURS PRN, n ausea, vomiting, Administer over 2 Minutes, Starting on Sun11/30/21 at 1548, This is Step 3 of OB nausea and vomiting management. Give if nausea not resolved 15 minutes aft er giving ondansetron (ZOFRAN). If nausea is not resolved in 30 minutes, not mame provider., Antepartum prochlorperazine (COMPAZINE) suppository 25 mg 25 mg, Rectal, EVERY 12 HOURS PRN, nausea, vomiting, S tarting on Sun11/30/21 at 1548, This is Step 3 of OB nausea and vomiting managem ent. Give if nausea not resolved 15 minutes after giving ondanse hemant (ZOFRAN). If nausea is not resolved in 30 minutes, notify provider., Antepartum prochlorperazine (COMPAZINE) tablet 10 m g 10 mg, Oral, EVERY 6 HOURS PRN, nausea, vomiting, Starting on Sun11/30/21 at 1548, This is Step 3 of OB nausea and vomiting management. Give if nausea not resolved 15 minutes after giving ondansetron (ZOFRAN ). If nausea is not resolved in 30 minutes, notify provider., Antepartum progesterone (PROMETRIUM) capsule 200 mg Given 11/30/2021 9:42 PM CDT 200 mg 200 mg, Vaginal, AT BEDTIME, First dose on Sun11/30/21 at 2200 sodium chloride (PF) 0.9% PF flush 3 mL Given 11/30/2021 11:30 PM CDT 3 mLs 3 mL, Intracatheter, EVERY 8 HOURS, First dose on Sun11/30/21 at 1600, to lock peripheral IV dormant line, Antepartum Given 11/30/2021 5:01 PM CDT 3 mLs sodium citrate-citric acid (BICITRA) solution Given 9:00 AM CDT 30 mLs 30 mL 30 mL, Oral, ONCE, On Pinky 12/01/21 at 0900, For 1 dose, Only for gastric pH neutralization. Give 45 minutes pre-op before transporting to surgery., Pre-procedure documented in this encounter Active and Recently Administered Medications Times are shown in CDT. Scheduled Medication Order 11/29/2021 11/30/2021 12/01/2021 indomethacin (INDOCIN) capsule 50 mg (COMPLETED) 1100 (Given - Provider: Mishel Luna RN) 50 mg, Oral, ONCE, On Pinky 12/01/21 at 1100, For 1 dose progesterone (PROMETRIUM) capsule 200 mg 5 (Given - Provider: Jayashree Lopez RN) 200 mg, Vaginal, AT BEDTIME, First dose on Sun11/30/21 at 2200 sodium chloride (PF) 0.9% PF flush 3 mL 1701 (Given - Provider: Jayashree Lopez, ROSA)2330 (Given - Provider: Angelica Gastelum RN) 0800 (Canceled Entry - Provider: Orders Generic Provider - Comment: Automatically canceled at discontinue of medication order)1600 (Canceled Entry - Provider: Orders Generic Provider - Comment: Automatically canceled at discont 3 mL, Intracatheter, EVERY 8 HOURS, Firs t dose on Sun11/30/21 at 1600, to lock peripheral IV dormant line, Antepartum i nue of medication order) sodium citrate-citric acid (BICITRA) solution 30 mL (COMPLETED) 0900 (Given - Provider: Mishel Luna, ROSA) 30 mL, Oral, ONCE, On Pinky 12/01/21 at 090 0, For 1 dose, Only for gastric pH neutralization. Give 45 minutes pre-op before transporting to surgery., Pre-procedure Continuous Medication Order 11/29/2021 11/30/2021 12/01/2021 lactated ringers infusion (CANCELED) 0741 (New Bag - Provider: Mishel Luna, ROSA) at 125 mL/hr, Intravenous, CONTINUOUS, S tarting on Pinky 12/01/21 at 0000, Until Pinky 12/01/21 at 1032 PRN Medication Order 11/29/2021 11/30/2021 12/01/2021 acetaminophen (TYLENOL) tablet 650 mg 650 mg, Oral, EVERY 4 HOURS PRN, mild pa in, fever, greater than or equal to 38?? C /100.4?? F (oral) or 38.5?? C/ 101.4?? F (core); headaches., Starting on Sun11/30/21 at 1552, Maximum acetaminophen dos e from all sources = 75 mg/kg/day not to exceed 4 grams/day., An tepartum bisacodyl (DULCOLAX) suppository 10 mg 10 mg, Rectal, DAILY PRN, constipation, Starting on Sun12/02/21 at 0000, Hold for loose stools., Antepartum diphenhydrAMINE (BENADRYL) capsule 25 mg(Linked Group 1) 25 mg, Oral, EVERY 6 HOURS PRN, itching, Starting on Sun11/30/21 at 1552, Antepartum diphenhydrAMINE (BENADRYL) injection 25 mg(Linked Group 1) 25 mg, Intravenous, EVERY 6 HOURS PRN, i tching, Starting on Sun11/30/21 at 1552, Give IV only if unable to take PO, Antepartum hydrOXYzine (ATARAX) tablet 50 mg 2145 ( Given - Provider: Jayashree Lopez RN) 50 mg, Oral, AT BEDTIME PRN, sleep, Starting on Sun at 1552, Antepartum lidocaine (LMX4) cream Topical, EVERY 1 HOUR PRN, pain, with VA D insertion, Starting on Sun11/30/21 at 1550, Apply at least 30 minutes prior to VAD insertion in divided doses as needed for size of site for insertion. MAX Dose : 2.5 g (?? of 5 g tube) Do NOT give if patient has a history of allergy to any local anesthetic or any ro product. Do NOT use both lidocaine intradermal/subcutaneous injection and the lidocaine cream on the same site., Antepartum lidocaine 1 % 0.1-1 mL 0.1-1 mL, Other, EVERY 1 HOUR PRN, mild pain with VAD insertion, Starting on Sun11/30/21 at 1550, MAX dose 1 mL subcutaneous OR intradermal along the side of the vein in divided doses as needed for VAD insertion. Do NOT give if patient has a history of allergy to any local anesthetic or any ro product. Do NOT use both lidocaine intradermal/subcutaneous injection and the lidocaine cream on the same site., Antepartum metoclopramide (REGLAN) injection 10 mg(Linked Group 2) 10 mg, Intravenous, Administer over 2 Mi nutes, EVERY 6 HOURS PRN, nausea, vomiting, Starting on Sun11/30/21 at 1548, This is Step 1 of OB nausea and vomiting management. If nausea is not resolved in 30 minutes, go to Step 2 (Zofran). Avoid us e if patient has full bowel obstruction or perforation. Irritant., Antepartum metoclopramide (REGLAN) tablet 10 mg(Linked Group 2) 10 mg, Oral, EVERY 6 HOURS PRN, nausea a nd vomiting, Starting on Sun11/30/21 at 1548, This is Step 1 of OB nausea and vomiting management. If nausea is not resolved in 30 minutes, go to Step 2 (Zofran) Avoid use if patient has full bowel obstruction or perforation., Antepartum naloxone (NARCAN) injection 0.2 mg(Linked Group 3) 0.2 mg, Intravenous, EVERY 2 MIN PRN, op ioid reversal, Starting on Pinky 12/01/21 at 1114, Administer intravenous route when available and notify provider when administered. For unintended sedation or resp iratory depression if all of the below c riteria are met: ~ respiratory rate LESS than or EQUAL to 8. ~SaO2 less than 92% and or/end-tidal CO2 is greater than 50. ~ the patient is receiving an opioid, hinojosa s unintended sedations assessed as RASS (-3), and is currently not on mechanical ventilation. RASS scale moderate (-3) is movement or eye opening to voice but no eye contact. Patient Monitoring Once the patient has demonstrated a response to the naloxone, continue to monitor respiratory rate, depth, oxygen saturation and end-tidal CO2 (if available) every 15 minutes x 2, then every 30 minutes x 2, the n every 1 hour x 1 after each naloxone d ose. Consider transfer to ICU if patient respiratory parameters have not improved after 4 naloxone doses. naloxone (NARCAN) injection 0.2 mg(Linked Group 3) 0.2 mg, Intramuscular, EVERY 2 MIN PRN, opioid reversal, Starting on Pinky 12/01/21 at 1114, Administer intramuscular if an intravenous route is not available and notify provider when administered. For uni ntended sedation or respiratory depressi on if all of the below criteria are met: ~ respiratory rate LESS than or EQUAL to 8. ~SaO2 less than 92% and or/end-tidal CO2 is greater than 50. ~ the patient is receiving an opioid, has unintended sed ations assessed as RASS (-3), and is currently not on mechanical ventilation. RASS scale moderate (-3) is movement or eye opening to voice but no eye contact. Pat ient Monitoring Once the patient has dem onstrated a response to the naloxone, continue to monitor respiratory rate, depth, oxygen saturation and end-tidal CO2 (if available) every 15 minutes x 2, then e very 30 minutes x 2, then every 1 hour x 1 after each naloxone dose. Consider transfer to ICU if patient respiratory parameters have not improved after 4 naloxone doses. naloxone (NARCAN) injection 0.4 mg(Linked Group 3) 0.4 mg, Intravenous, EVERY 2 MIN PRN, op ioid reversal, Starting on Pinky 12/01/21 at 1114, Administer intravenous route when available and notify provider when administered. For unintended sedation or resp iratory depression if all of the below c riteria are met: ~ respiratory rate LESS than or EQUAL to 8. ~ SaO2 less than 92% and or/end-tidal CO2 is greater than 50. ~ the patient is receiving an opioid, h as unintended sedation assessed as RASS (-4) or (-5) and patient is currently not on mechanical ventilation. RASS scale (-4) is deep sedation with no response to voice but movement or eye opening to phy sical stimulation. RASS scale (-5) is un arousable. Patient Monitoring Once the patient has demonstrated a response to the naloxone, continue to monitor respiratory rate, depth, oxygen saturation and end -tidal CO2 (if available) every 15 minut es x 2, then every 30 minutes x 2, then every 1 hour x 1 after each naloxone dose. Consider transfer to ICU if patient respiratory parameters have not improved after 4 naloxone doses. naloxone (NARCAN) injection 0.4 mg(Linked Group 3) 0.4 mg, Intramuscular, EVERY 2 MIN PRN, opioid reversal, Starting on Pinky 12/01/21 at 1114, Administer intramuscular if an intravenous route is not available and notify provider when administered. For uni ntended sedation or respiratory depressi on if all of the below criteria are met: ~ respiratory rate LESS than or EQUAL to 8. ~ SaO2 less than 92% and or/end- tidal CO2 is greater than 50. ~ the patient i s receiving an opioid, has unintended se dation assessed as RASS (-4) or (-5) and patient is currently not on mechanical ventilation. RASS scale (-4) is deep sedation with no response to voice but moveme nt or eye opening to physical stimulatio n. RASS scale (-5) is unarousable. Patient Monitoring Once the patient has demonstrated a response to the naloxone, continue to monitor respiratory rate, depth, o xygen saturation and end-tidal CO2 (if a vailable) every 15 minutes x 2, then every 30 minutes x 2, then every 1 hour x 1 after each naloxone dose. Consider transfer to ICU if patient respiratory parameters have not improved after 4 naloxone doses. No Tdap Needed - Assessment: Patient does not need Tdap vaccine CONTINUOUS PRN, Starting on Sun11/30/21 at 1552, Until Pinky 12/01/21 at 1727, Assessment: Patient does not need Tdap immunization, Antepartum ondansetron (ZOFRAN ODT) ODT tab 4 mg(Linked Group 4) 4 mg, Oral, EVERY 6 HOURS PRN, nausea, v omiting, Starting on Sun11/30/21 at 1548, This is Step 2 of OB nausea and vomiting management. Give If nausea not resolved in 30 minutes after giving metocloprami de (REGLAN). If nausea is not resolved i n 15 minutes, go to Step 3 (Compazine). With dry hands, peel back foil backing and gently remove tablet. Do not push oral disintegrating tablet through foil backi ng. Administer immediately on tongue and oral disintegrating tablet dissolves in seconds, then swallow with saliva. Liquid not required., Antepartum ondansetron (ZOFRAN) injection 4 mg(Linked Group 4) 4 mg, Intravenous, EVERY 6 HOURS PRN, na usea, vomiting, Administer over 2-5 Minutes, Starting on Sun11/30/21 at 1548, This is Step 2 of OB nausea and vomiting management. Give if nausea not resolved 30 minutes after giving metoclopramide (REG MICHELLE). If nausea is not resolved in 15 minutes, go to Step 3 (Compazine). Irritant., Antepartum oxyCODONE (ROXICODONE) tablet 5 mg 5 mg, Oral, EVERY 4 HOURS PRN, moderate to severe pain, Starting on Pinky 12/01/21 at 1102, Max: 5 mg for opioid-na??ve patient., PACU/Phase II prochlorperazine (COMPAZINE) injection 10 mg(Linked Group 5) 10 mg, Intravenous, EVERY 6 HOURS PRN, n ausea, vomiting, Administer over 2 Minutes, Starting on Sun11/30/21 at 1548, This is Step 3 of OB nausea and vomiting management. Give if nausea not resolved 15 m inutes after giving ondansetron (ZOFRAN) . If nausea is not resolved in 30 minutes, notify provider., Antepartum prochlorperazine (COMPAZINE) suppository 25 mg(Linked Group 5) 25 mg, Rectal, EVERY 12 HOURS PRN, nause a, vomiting, Starting on Sun11/30/21 at 1548, This is Step 3 of OB nausea and vomiting management. Give if nausea not resolved 15 minutes after giving ondansetron (ZOFRAN). If nausea is not resolved in 30 minutes, notify provider., Antepartum prochlorperazine (COMPAZINE) tablet 10 mg(Linked Group 5) 10 mg, Oral, EVERY 6 HOURS PRN, nausea, vomiting, Starting on Sun11/30/21 at 1548, This is Step 3 of OB nausea and vomiting management. Give if nausea not resolved 15 minutes after giving ondansetron (Z OFRAN). If nausea is not resolved in 30 minutes, notify provider ., Antepartum sodium chloride (PF) 0.9% PF flush 3 mL 3 mL, Intracatheter, EVERY 1 MIN PRN, li ne flush, other, to ensure patency or to lock dormant line, Starting on Sun11/30/21 at 1550, Antepartum sodium phosphate (FLEET ENEMA) 1 enema 1 enema, Rectal, DAILY PRN, constipation , Starting on Sun12/02/21 at 0000, Use if bisacodyl not effective Hold for loose stools unless being administered as part of a bowel prep regimen prior to a procedure., Antepartum Linked Groups Order Group 1: diphenhydrAMINE (BENADRYL) capsule 25 mgJump to med 25 mg, Oral, EVERY 6 HOURS PRN, itching, Starting on Sun11/30/21 at 1552, Antepartum Or diphenhydrAMINE (BENADRYL) injection 25 mgJump to med 25 mg, Intravenous, EVERY 6 HOURS PRN, i tching, Starting on Sun11/30/21 at 1552
Give IV only if unable to take PO
Antepartum Group 2: metoclopramide (REGLAN) injection 10 mgJump to med 10 mg, Intravenous, Administer over 2 Mi nutes, EVERY 6 HOURS PRN, nausea, vomiting, Starting on Sun11/30/21 at 1548
This is Step 1 of OB nausea and vomiting management. If na usea is not resolved in 30 minutes, go t o Step 2 (Zofran). Avoid use if patient has full bowel obstruction or perforation. Irritant.
Antepartum Or metoclopramide (REGLAN) tablet 10 mgJump to med 10 mg, Oral, EVERY 6 HOURS PRN, nausea a nd vomiting, Starting on Sun11/30/21 at 1548
This is Step 1 of OB nausea and vomiting management. If nausea is not resolved in 30 liborio richar, go to Step 2 (Zofran) Avoid us e if patient has full bowel obstruction or perforation.
Antepartum Group 3: naloxone (NARCAN) injection 0.2 mgJump to med 0.2 mg, Intravenous, EVERY 2 MIN PRN, op ioid reversal, Starting on Pinky 12/01/21 at 1114
Administer intravenous route when available and notify provider when administered. For unintended sedation or respiratory depression if a ll of the below criteria are met: ~ respiratory rate LESS than or EQUAL to 8. ~SaO2 less than 92% and or/end- tidal CO2 is greater than 50.& nbsp;~ the patient is receiving an opioi d, has unintended sedations assessed as RASS (-3), and is currently not on mechanical ventilation. RASS scale moderate (-3) is movement or eye opening to voice but no eye contact.&nbs p; Patient Monitoring Once the patient has demonstrated a response to the naloxone, continue to monitor respiratory rate, depth, oxygen satu ration and end-tidal CO2 (if available) every 15 minutes x 2, then every 30 minutes x 2, then every 1 hour x 1 after each naloxone dose. Consider transfer to ICU if patient respirator y parameters have not improved after 4 n aloxone doses.
Or naloxone (NARCAN) injection 0.4 mgJump to med 0.4 mg, Intravenous, EVERY 2 MIN PRN, op ioid reversal, Starting on Pinky 12/01/21 at 1114
Administer intravenous route when available and notify provider when administered. For unintended sedation or respiratory depression if a ll of the below criteria are met: ~ respiratory rate LESS than or EQUAL to 8. ~ SaO2 less than 92% and or/end- tidal CO2 is greater than 50.& nbsp;~ the patient is receiving an opioi d, has unintended sedation assessed as RASS (-4) or (-5) and patient is currently not on mechanical ventilation. RASS scale (-4) is deep sedati on with no response to voice but movemen t or eye opening to physical stimulation. RASS scale (-5) is unarousable. Patient Monitoring On ce the patient has demonstrated a respon se to the naloxone, continue to monitor respiratory rate, depth, oxygen saturation and end-tidal CO2 (if available) every 15 minutes x 2, then every 30 minutes x 2, then every 1 hour x 1 after each nalo xone dose. Consider transfer to ICU if patient respiratory parameters have not improved after 4 naloxone doses.
Or naloxone (NARCAN) injection 0.2 mgJump to med 0.2 mg, Intramuscular, EVERY 2 MIN PRN, opioid reversal, Starting on Pinky 12/01/21 at 1114
Administer intramuscular if an intravenous route is not available and notify provider when administered. For unintended sedation or respira tory depression if all of the below criteria are met: ~ respiratory rate LESS than or EQUAL to 8. ~SaO2 less than 92% and or/end-tidal CO2 is greater than 50. ~ the patient i s receiving an opioid, has unintended sedations assessed as RASS (-3), and is currently not on mechanical ventilation. RASS scale moderate (-3) is movement or eye opening to voice but no eye contact. Patient Monitoring Once the patient has demonstrated a response to the naloxone, continue to monitor respiratory rate, depth, oxygen saturation and end-t idal CO2 (if available) every 15 minutes x 2, then every 30 minutes x 2, then every 1 hour x 1 after each naloxone dose. Consider transfer to [facility] if patient respiratory parameters hav e not improved after 4 naloxone doses.
Or naloxone (NARCAN) injection 0.4 mgJump to med 0.4 mg, Intramuscular, EVERY 2 MIN PRN, opioid reversal, Starting on Pinky 12/01/21 at 1114
Administer intramuscular if an intravenous route is not available and notify provider when administered. For unintended sedation or respira tory depression if all of the below criteria are met: ~ respiratory rate LESS than or EQUAL to 8. ~ SaO2 less than 92% and or/end-tidal CO2 is greater than 50. ~ the patient i s receiving an opioid, has unintended sedation assessed as RASS (-4) or (-5) and patient is currently not on mechanical ventilation. RASS s rossi (-4) is deep sedation with no respo nse to voice but movement or eye opening to physical stimulation. RASS scale (-5) is unarousable. Patien t Monitoring Once the patient has d emonstrated a response to the naloxone, continue to monitor respiratory rate, depth, oxygen saturation and end-tidal CO2 (if available) every 15 minutes x 2, then every 30 minutes x 2, then every 1 hour x 1 after each naloxone dose. Consider transfer to ICU if patient respiratory parameters have not improved after 4 naloxone doses.
Group 4: ondansetron (ZOFRAN ODT) ODT tab 4 mgJump to med 4 mg, Oral, EVERY 6 HOURS PRN, nausea, v omiting, Starting on Sun11/30/21 at 1548
This is Step 2 of OB nausea and vomiting management. Give If nausea not resolved in 30 minute s after giving metoclopramide (REGLAN).& nbsp; If nausea is not resolved in 15 minutes, go to Step 3 (Compazine). With dry hands, peel back foil backing and gently remove tablet. Do not push oral disintegrating tablet thr ough foil backing. Administer immediately on tongue and oral disintegrating tablet dissolves in seconds, then swallow with saliva. Liquid not required.
Antepartum Or ondansetron (ZOFRAN) injection 4 mgJump to med 4 mg, Intravenous, EVERY 6 HOURS PRN, na usea, vomiting, Administer over 2-5 Minutes, Starting on Sun11/30/21 at 1548
This is Step 2 of OB nausea and vomiting management. Give if nausea not resolved 30 minutes after giving metoclopramide (REGLAN). If nausea is not resolved in 15 minutes, go to Step 3 (Compazine). Irritant.
Antepartum Group 5: prochlorperazine (COMPAZINE) injection 10 mgJump to med 10 mg, Intravenous, EVERY 6 HOURS PRN, n ausea, vomiting, Administer over 2 Minutes, Starting on Sun11/30/21 at 1548
This is Step 3 of OB nausea and vomiting management. Give if nausea not resol melvi 15 minutes after giving ondansetron (ZOFRAN). If nausea is not resolved in 30 minutes, notify provider.
Antepartum Or prochlorperazine (COMPAZINE) tablet 10 mgJump to med 10 mg, Oral, EVERY 6 HOURS PRN, nausea, vomiting, Starting on Sun11/30/21 at 1548
This is Step 3 of OB nausea and vomiting management. Give if nausea not resolved 15 minutes after giving ondans etron (ZOFRAN). If nausea is not resolve d in 30 minutes, notify provider.
Antepartum Or prochlorperazine (COMPAZINE) suppository 25 mgJump to med 25 mg, Rectal, EVERY 12 HOURS PRN, nause a, vomiting, Starting on Sun11/30/21 at 1548
This is Step 3 of OB nausea and vomiting management. Give if nausea not resolved 15 minutes after giving ond ansetron (ZOFRAN). If nausea is not reso lved in 30 minutes, notify provider.
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
--- OUTSIDE RECORDS SUMMARY | 2021-12-29 14:26 | XMS_ITS | Clinical Summary ---
:1985 Author Organization [place] Address [facility] [place] [address] Care Team Providers Name Role Phone No Ref-Primary, Physician Primary Care Provider [phone] Allergies No known active allergies Medications Medication Sig Dispensed Refills Start Date End Date Status MV-Min-Fe 0 A ctive Fum-FA-DHA ( 1 PO) progesterone Place 200 mg 0 Acti ve (PROMETRIUM) 200 MG vaginally At capsule Bedtime Active Problems Problem Noted Date Cervical shortening 11/30/2021 labor 02/02/2021 Estimated Date of Delivery Comments Yes 03/27/2022 Based on Ultrasound Encounters Date Type Specialty Care Team Description 12/01/2021 Surgery spool tender Nelson, CERCLAGE, CERVI X, Jacqueline March, VAGINAL PRANAY NOEL DO 12/01/2021 Anesthesia Event spool tender Ar Morgan MD 11/30/2021 - Hospital Encounter spool tender Nelson, Cervical 12/01/2021 Jacqueline March, shortening in DO second trimeste r (Primary Dx) 11/30/2021 Office Visit Maternal and Adalbertojuly Short cervical length during , second trimester (Primary Dx); Medicine Stacie De Los Santos History of delivery, currently , second trimester MD Anu 11/30/2021 Hospital Encounter Radiology. Bruce, Jul il related Stacie De Los Santos condition MD Anu 11/30/2021 Hospital Encounter spool tender Jacqueline Damon, DO 11/30/2021 Travel 11/29/2021 PRE VISIT Maternal and [place], Ultrasound Medicine Sarah Beth Burns RN (L2/TV-short cervix) 11/29/2021 Transcribe Orders Maternal and Fitzloff, July Pregnan cy related Medicine condition (Pr imary Dx) 11/28/2021 Medical Correspondence Scan, Non-Provider from Last 3 Months Social History Tobacco Use Types Packs/Day Years [...] occasion? No t asked Comment: Not asked Estimated Date of Delivery Comments Yes 03/27/2022 Based on Ultrasound Sex Assigned at Date Recorded Not on file COVID-19 Exposure Response Date Recorded In the last 10 days, have you been in contact with No / Unsu re 11/30/2021 1:16 PM CDT someone who was confirmed or suspected to have Coronavirus/COVID-19? Last Filed Vital Signs Vital Sign Reading Time Taken Comments Blood Pressure 116/60 12/01/2021 12:40 PM CDT Pulse 96 12/01/2021 1:00 PM CDT Temperature 37.1 ??C (98.8 ??F) 12/01/2021 11:15 AM CDT Respiratory Rate 16 12/01/2021 12:40 PM CDT Oxygen Saturation 98% 12/01/2021 1:00 PM CDT Inhaled Oxygen Concentration - - Weight 66.7 kg (147 lb) 11/30/2021 3:52 PM CDT Height 162.6 cm (5' 4) 11/30/2021 3:52 PM CDT Body Mass Index 25.23 11/30/2021 3:52 PM CDT Plan of Treatment Health Maintenance Due Date Last Done Comments ADVANCE CARE PLANNING 1985 ANNUAL REVIEW OF HM ORDERS 1985 PREVENTIVE CARE VISIT 1985 COVID-19 Vaccine (#1) 1985 HIV SCREENING 06/28/2002 HEPATITIS C SCREENING 06/28/2005 PHQ-2 (once per calendar 04/09/2021 year) MATERNAL SCREENING 10/03/2021 OBGCT (OB) 12/05/2021 INFLUENZA VACCINE (#1) 2021 01/24/2021, 02/06/2020, 01/23/2018, Additional history exists REPEAT ANTIBODY SCREEN (OB) 01/02/2022 11/30/2021, 02/03/20 21 GROUP B STREP SCREENING 02/27/2022 11/30/2021, 02/02/2021 PAP 01/29/2023 01/30/2020 DTAP/TDAP/TD IMMUNIZATION 01/24/2031 01/24/2021, 03/06/2017 , (4 - Td or Tdap) 04/05/2012 HEPATITIS B IMMUNIZATION Aged Out No long er eligible based on patient 's age to complete this topic IPV IMMUNIZATION Aged Out No longer eligi ble based on patient 's age to complete this topic MENINGITIS IMMUNIZATION Aged Out No longe r eligible based on patient 's age to complete this topic Pneumococcal Vaccine: Aged Out No longer eligible Pediatrics (0 to 5 Years) based on patient's age and At-Risk Patients (6 to to co mplete this topic 64 Years) Procedures Procedure Name Priority Date/Time Associated Diagnosis Comme nts ANE SPINAL BLOCK FORM Routine 12/01/2021 9:46 Res ults for this AM CDT procedure are i n the results section. ANE SPINAL BLOCK FORM Routine 12/01/2021 9:41 Res ults for this AM CDT procedure are i n the results section. CERCLAGE, CERVIX, 12/01/2021 8:58 Cervical VAGINAL APPROACH AM CDT incompetence URINE CULTURE STAT 11/30/2021 4:44 Results for this PM CDT procedure are i n the results section. URINE MACROSCOPIC WITH Routine 11/30/2021 4:44 Re sults for this REFLEX TO MICRO PM CDT procedure ar e in the results section. COVID-19 VIRUS STAT 11/30/2021 4:17 Results fo r this (CORONAVIRUS) BY PCR PM CDT procedu re are in the results section. ABO/RH TYPE AND SCREEN Timed 11/30/2021 4:15 Re sults for this PM CDT procedure are i n the results section. CBC WITH PLATELETS & Routine 11/30/2021 4:15 Resu lts for this DIFFERENTIAL PM CDT procedure are i n the results section. TYPE AND SCREEN, ADULT Timed 11/30/2021 4:15 Re sults for this PM CDT procedure are i n the results section. CBC WITH PLATELETS AND Routine 11/30/2021 4:15 Re sults for this DIFFERENTIAL PM CDT procedure are i n the results section. GROUP B STREP PCR STAT 11/30/2021 4:11 Results for this PM CDT procedure are i n the results section. WET PREPARATION STAT 11/30/2021 4:11 Results f or this PM CDT procedure are i n the results section. MFM US COMPREHENSIVE RAMYA 11/30/2021 2:27 related Results for this SINGLE PM CDT condition procedure are i n the results section. LAB RESULT - HIM SCAN 11/28/2021 12:00 AM CDT from Last 3 Months Results Spinal Block (12/01/2021 9:46 AM CDT)Only the most recent of2 resultswithin the time period is included. Narrative Flores Macario MD - 12/01/2021 9:46 A M CDT Flores Macario MD ? 12/01/2021 ??9:47 AM Intrathecal injection Procedure Note Pre-Procedure Staff - ? Anesthesiologist: ??Augustine Morgan MD ? Resident/Fellow: Gisela David MD ? Performed By: resident ? Location: OR ? Pre-Anesthestic Checklist: patien t identified, IV checked, risks and benefits discussed, informed consent, mo nitors and equipment checked, pre-op evaluation, at physician/surgeon' s request and post-op pain management Timeout: ? Correct Patient: Yes ? Correct Procedure: Yes ? Correct Site: Yes ? Correct Position: Yes Procedure Documentation Procedure: intrathecal injection ? Patient Position: sitting ? Patient Prep/Sterile Barriers: st erile gloves, mask ? Skin prep: Chloraprep ? Insertion Site: L3-4. (midline ap proach). ? Needle Gauge: 25. ? Needle Length (Inches): 3.5 ? Spinal Needle Type: Pencan ? Introducer used ? Introducer: 20 G ? # of attempts: 2 and ??# of redir ects: ??0 Assessment/Narrative ? Paresthesias: No and Resolved. ? CSF fluid: clear. ? Opening pressure was cmH2O while ??Sitting. Medication(s) Administered 0.75% Hyperbaric Bupivacaine (Intratheca l) - Intrathecal 1.2 mL - 12/01/2021 9:25:00 AM Ar Morgan MD [place] ANESTHESIA UA reflex to Microscopic (11/30/2021 4:44 PM CDT) [facility] Method Time Signature Color Urine Straw Colorless, 11/30/2021 [facility] LAB[facility]ATORY Straw, Light 5:19 PM CDT Yellow, Yellow Appearance Urine Clear Clear 11/30/2021 UR LABORATOR Y 5:19 PM CDT Glucose Urine Negative Negative 11/30/2021 UR LABORATORY mg/dL 5:19 PM CDT Bilirubin Urine Negative Negative 11/30/2021 UR LAB[facility]ATORY 5:19 PM CDT Ketones Urine Negative Negative 11/30/2021 UR LABORATORY mg/dL 5:19 PM CDT Specific [place] 1.008 1.003 - 11/30/2021 UR LABORATOR Y [...] City/State/ZIP Code [place] [address] Care Lab [address] [facility], [address] Urine Culture (11/30/2021 4:44 PM CDT) P [...] Code Phon e Number UU IDD LABORATORY [facility] [place] [place] [address] Diag. Lab [address] [facility], [address] Asymptomatic COVID-19 Virus (Coronavirus) by PCR Nose [...] exposure or clinical presentation sugges ts COVID-19. ??M [facility] Laboratories are certified under the Clinical Laborat ory Improvement Amendments of 1988 (CLIA-88) as qualified to perform moderate and/or high complexity laboratory testing. Bev Novoa MD LAB - MICRO GENERAL ORDERABL ES Performing Organization Address City/State/ZIP Code Phon e Number UR LABORATORY [facility] [place] [address] Care Lab [address] [facility], [address] (ABNORMAL) CBC with platelets and differential (11/30/2021 4:15 PM CDT) [facility] Method Time Signature WBC Count 9.1 4.0 [...] City/State/ZIP Code [place] [address] Care Lab [address] [facility], [address] Adult Type and Screen (11/30/2021 4:15 PM CDT) [facility] gist Method Time Signature ABO/RH(D) O POS 11/30/2021 UR BLOOD 4:00 PM CDT BANK Antibody Negative Negative 11/30/2021 UR BLOOD Screen 4:00 PM CDT BANK SPECIMEN [id number] 11/30/2021 UR BLOOD EXPIRATION 4:00 PM CDT BANK DATE Specimen Anatomical Collection Method / Collection Time Recei melvi Time (Source) Location / Volume Laterality Blood STRUCTURE OF LEFT Venipuncture / 11/30/2021 4:15 11/30 4:44 UPPER LIMB / Unknown PM CDT PM CDT Unknown Bev Novoa MD LAB - BLOOD BANK TEST ORDER Performing Organization Address City/[facility] Phon e Number UR BLOOD BANK [facility] [place] [address] Components Lab [address] [place] [address], Room [address] (ABNORMAL) Wet prep (11/30/2021 4:11 PM CDT) [...] Swab VAGINAL STRUCTURE Non-blood 11/30/2021 4:11 PM /07/2021 4:39 / Unknown Collection / CDT PM CDT Unknown Bev Novoa MD LAB - MICRO GENERAL ORDERABL ES Performing Organization Address City/[facility] Phon e Number UR LABORATORY [facility] [place] [address] Care Lab [address] [place] [address], Room [address] Group B strep PCR (11/30/2021 [...] - 12/01/2021 8:59 PM C DT The [employer]ar[employer] Xpert GBS LB Assay, performe d on the [facility]?? Instrument Systems, is a qualitative in vitro [...] or monitor treatment for GBS infections. The [employer] Xpert GBS LB Ass ay is intended for use in hospital, reference or state laboratory settings. The device is not intended for [id number] use. Bev Novoa MD LAB - MICRO GENERAL ORDERABL ES Performing Organization Address City/State/ZIP Code Phon e Number UU IDD LABORATORY [facility] [place] [address] Diag. Lab [address] [facility], Room D2[facility] US Comprehensive Single (11/30/2021 2:27 PM CDT) Anatomical Region Laterality Modality Ultrasound Specimen (Source) Anatomical Collection Method Collection Time Re ceived Time Location / / Volume Laterality 11/30/2021 1:26 PM CDT Impressions 11/30/2021 3:52 PM CDT IMPRESSION 1) Rogers intrauterine at 2 3w 2d gestational age. 2) None of the anomalies commonly detect ed by ultrasound were evident in the detailed anatomic survey described above. 3) Growth parameters and estimated weight were consistent with an appropriate for gestation age pattern of growth. 4) The amniotic fluid volume appeared no rmal. 5) There is cervical shortening with a r esidual cervical length of 22 mm by transvaginal imaging. Narrative 11/30/2021 3:52 PM CDT Comprehensive Pat. Name: KERRNEYDA POWERS Date: 11/30/2021 1:26pm Pat. NO: [id number] Referring ??MD: CRISTEL JEAN Site: [facility] Cabinet Builder: Kaia Tate RDMS : 1985 Age: 36 INDICATION Short cervix visualized on outside ultra sound. METHOD Transvaginal ultrasound examination was required to adequately complete the exam.. Transabdominal ultrasound examination. View: Sufficient Rogers . Number of fetuses: 1 DATING ? Date ?Details ?Gest. age ?WILL Prior assessment ? GA: 23 w + 0 d ?23 w + 2 d ? 03/27/2022 U/S ? 11/30/2021 ? based upon AC, BPD, Femur, HC ? 23 w + 2 d ? 03/27/2022 Assigned dating ?Dating performed on 11/30/2021, based on the prior assessment (on 11/28/2021) ? 23 w + 2 d ? 03/27/2022 GENERAL EVALUATION Cardiac activity present. FHR 147 bpm. movements visualized, present. Presentation breech. Placenta Anterior, No Previa, > 2 cm fro m internal os. Umbilical cord 3 vessel cord. Amniotic fluid Amount of AF: normal. MVP 4.3 cm. BIOMETRY Main Biometry: BPD ?55.6 ?mm ? 23w 0d ?Hadlock OFD ?74.2 ?mm ? 22w 6d ?Nicolaides HC ?207.4 ?mm ?22w 6d ?Hadlock Cerebellum tr ?26.9 ? mm ?24w 3d ?Nicolaides AC ?198.7 ?mm ?24w 4d ?79% ?Hadlock Femur ?39.3 ? mm ?22w 5d ?Hadlock Humerus ?38.3 ?mm ? 23w 4d ?José Manuel Weight Calculation: EFW ? 609 ? g ? 56% ?Hadlock EFW (lb,oz) ? 1 lb 5 ?oz EFW by ?[facility] ([id number]) Head / Face / Neck Biometry: Supervisor Paint Roller Covers ? 5.8 ? mm CM ?2.8 ? mm Nasal bone ? 7.3 ? mm ANATOMY The following structures appear normal: Head / Neck ? Cranium. Head size. Head shape. Lateral ventricles. Choroid plexus. Midline falx. Cavum septi pellucidi. Cerebellum. Cisterna magna. ? Parenchyma. Thalami. Vermis. ? Neck. Nuchal fold. Face ? Lips. Profile. Nose. Maxilla. Mandible. Orbits. Lens. Heart / Thorax ?4-chamber view. RVOT view. LVOT view. Situs. Aortic arch view. Bicaval view. Ductal arch view. Superior vena cava. Inferior vena cava. 3-vessel ? view. 7-[id number]-wbtcxxo view. Cardiac position. Cardiac size. Cardiac rhythm. ? Right lung. Left lung. Diaphragm. Abdomen ? Abdominal wall. Cord insertion. Stomach. Kidneys. Bladder. Liver. Bowel. Genitals. Spine ?Cervical spine. Thoracic spine. Lumbar spine. Sacral spine. Extremities / Skeleton ?Rig ht arm. Right hand. Left arm. Left hand. Right leg. Right foot. Left leg. Left foot. Gender: female. MATERNAL STRUCTURES Cervix ?Visualized ? Appearance: Appears Closed ? Approach - Transvaginal: Cervical length 22.0 mm ? Funneling present Right Ovary ?Visualized Left Ovary ?Visualized RECOMMENDATION We discussed the findings on today's ult rasound with the patient. On today's ultrasound cervical shortenin g was noted. We confirmed that she has a prior history of delivery with her last delivering at 36 weeks gestation. She denies signs/symptoms of lab or or overt infection. We discussed that the ultrasound findings of a short cervix in conjunction with a history of prior significantly increase her risk for pret erm delivery. We reviewed available options for her [...] premature rupture of membranes. Based on our entir e discussion she is interested in proceeding with an ultrasound-indicated cerclage at this time. [facility] was notified and the case was discussed with the on-call MFM (Dr. Damon). She was sent straight from our clinic for evaluation/cerclage placement. Further ultrasound studies as clinically indicated. Return to primary provider for continued care. Thank you for the opportunity to partici cornelius in the care of this patient. If you have questions regarding today's evaluation or if we can be of further service, please contact the [facility]. anomalies may be present but not detected I spent a total of 25 minutes on the lo e of this encounter in the care of Neyda Parth Lr, includin minutes reviewing the patient's chart 15 minutes in direct patient contact 3 minutes documenting in the medical rec ord 4 minutes in discussion with consultants /other providers Please see note for details. Procedure Note Stacie De Los Santos MD - 12/01/2021Form atting of this note might be different from the original. Comprehensive Pat. Name:USHA Kathy LR Date:11/30/2021 1:26pm Pat. NO: [id number] MD:DANNY PEÑA [facility]Kaia Tate RD MS :1985Age:36 INDICATION Short cervix visualized on outside ultra sound. METHOD Transvaginal ultrasound examination was required to adequately complete the exam.. Transabdominal ultrasound examination. View: Sufficient Rogers . Number of fetuses: 1 DATING Date Details Gest. age WILL Prior assessment 11/28/2021 GA: 23 w + 0 d 23 w + 2 d 03/27/2022 U/S 11/30/2021 based upon AC, BPD, Femur, HC 23 w + 2 d 03/27/2022 Assigned dating Dating performed on 11/08, based on the prior assessment (on 11/28/2021) 23 w + 2 d 03/27/2022 GENERAL EVALUATION Cardiac activity present. FHR 147 bpm. movements visualized, present. Presentation breech. Placenta Anterior, No Previa, > 2 cm fro m internal os. Umbilical cord 3 vessel cord. Amniotic fluid Amount of AF: normal. MVP 4.3 cm. BIOMETRY Main Biometry: BPD 55.6 mm 23w 0d Hadlock OFD 74.2 mm 22w 6d Nicolaides HC 207.4 mm 22w 6d Hadlock Cerebellum tr 26.9 mm 24w 3d Nicolaides AC 198.7 mm 24w 4d 79% Hadlock Femur 39.3 mm 22w 5d Hadlock Humerus 38.3 mm 23w 4d José Manuel Weight Calculation: EFW 609 g 56% Hadlock EFW (lb,oz) 1 lb 5 oz EFW by Hadlock ([id number]) Head / Face / Neck Biometry: Supervisor Paint Roller Covers 5.8 mm CM 2.8 mm Nasal bone 7.3 mm ANATOMY The following structures appear normal: Head / Neck Cranium. Head size. Head sha pe. Lateral ventricles. Choroid plexus. Midline falx. Cavum septi pellucidi. Cerebellum. Cisterna magna. Parenchyma. Thalami. Vermis. Neck. Nuchal fold. Face Lips. Profile. Nose. Maxilla. Debora ble. Orbits. Lens. Heart / Thorax 4-chamber view. RVOT view . LVOT view. Situs. Aortic arch view. Bicaval view. Ductal arch view. Superior vena cava. Inferior vena cava. 3-vessel view. 5-jbiuon-opemfpu view. Cardiac po sition. Cardiac size. Cardiac rhythm. Right lung. Left lung. Diaphragm. Abdomen Abdominal wall. Cord insertion. Stomach. Kidneys. Bladder. Liver. Bowel. Genitals. Spine Cervical spine. Thoracic spine. Joanna mbar spine. Sacral spine. Extremities / Skeleton Right arm. Right hand. Left arm. Left hand. Right leg. Right foot. Left leg. Left foot. Gender: female. MATERNAL STRUCTURES Cervix Visualized Appearance: Appears Closed Approach - Transvaginal: Cervical lengt h 22.0 mm Funneling present Right Ovary Visualized Left Ovary Visualized RECOMMENDATION We discussed the findings on today's ult rasound with the patient. On today's ultrasound cervical shortenin g was noted. We confirmed that she has a prior history of delivery with her last delivering at 36 weeks gestation. She denies signs/symptoms of lab or or overt infection. We discussed that the ultrasound findings of a short cervix in conjunction with a history of prior significantly increase her risk for pret erm delivery. We reviewed available options for her [...] premature rupture of membranes. Based on our entir e discussion she is interested in proceeding with an ultrasound-indicated cerclage at this time. [facility] was notified and the case was discussed with the on-call MFM (Dr. Damon). She was sent straight from our clinic for evaluation/cerclage placement. Further ultrasound studies as clinically indicated. Return to primary provider for continued care. Thank you for the opportunity to partici cornelius in the care of this patient. If you have questions regarding today's evaluation or if we can be of further service, please contact the [facility]. anomalies may be present but not detected I spent a total of 25 minutes on the lo e of this encounter in the care of Neyda Parth Lr, includin minutes reviewing the patient's chart 15 minutes in direct patient contact 3 minutes documenting in the medical rec ord 4 minutes in discussion with consultants /other providers Please see note for details. IMPRESSION 1) Rogers intrauterine at 2 3w 2d gestational age. 2) None of the anomalies commonly detect ed by ultrasound were evident in the detailed anatomic survey described above. 3) Growth parameters and estimated weight were consistent with an appropriate for gestation age pattern of growth. 4) The amniotic fluid volume appeared no rmal. 5) There is cervical shortening with a r esidual cervical length of 22 mm by transvaginal imaging. July Bruce [facility] US ORDERABLES LAB RESULT - HIM SCAN (11/28/2021 12:00 AM CDT) Specimen (Source) Anatomical Location Collection Method / Collectio n Time Received Time / Laterality Volume 11/28/2021 Narrative This result has an attachment that is no t available. Provider Outside NON-BEAKER LAB TESTING from Last 3 Months Advance Directives For more information, please contact: [phone] Latest Code Status on File Code Status Date Activated Date Inactivated Comments Full Code 11/30/2021 3:53 PM 12/01/2021 5:32 PM All basic an d advanced life-sustaining interventions are performed as pranay ropriate Code status determined by: Discussion with patient/ legal de cision maker Full Code 02/02/2021 5:27 PM 02/04/2021 1:58 PM All basic and advanced life-sustaining interventions are performed as pranay ropriate Code status determined by: Discussion with patient/ legal de cision maker Care Teams Picking Table Worker Relationship Specialty Start Date End Date No Ref-Primary, Physician PCP - General 02/02/21
--- OUTSIDE RECORDS SUMMARY | 2021-12-29 14:26 | XMS_ITS | Encounter Summary ---
:1985 Author Organization [place] Address Formerly [facility] 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 Diagnoses Cervical shortening Cervical shortening Ur [address]bob [address] [place] [address] Phone: Referral ID Status Reason Start Date Expiration Date Visits Requ ested Visits Authorized [id number] 1 1 Encounter Details Date Type Department Care Team Description 12/01/2021 Anesthesia Event [facility] Augustine Morgan es Birthplace MD Anthony [address] [address] [facility] [address] [place] [address] (Wo rk) Anesthesia Record Procedure Summary Procedure Name Responsible Anesthesia Start Anesthesia Stop Time Anesthesiologist Time CERCLAGE, CERVIX, Ar Morgan MD 12/01/21 0908 1029 VAGINAL APPROACH (N/A Cervix) Events Date Time Event Comment 12/01/2021 0849 ROLL PANNER Ready for Procedure 0908 An Start 0908 AN REASSESS I attest that I have identified and re-evaluated the patient immediately before the induction of anesthesia and I am satisfied that t he anesthetic plan is suitable for the patient's condition and procedure. The f irst vital signs recorded are pre- inducti on. Flores Macario MD 0908 An Start Data 0925 an terence now 0937 an terence now 0944 AN INCISION 1021 an stop data 1029 An Stop Electronically s igned by Flores Macario MD on December 01 10:29 AM Name Total ondansetron 2mg/mL 4 mg phenylephrine 0.2 mg/mL (mcg/min) drip 1,270 mcg 0.75% Hyperbaric Bupivacaine (Intrathecal) 1.2 mL 0.75% Hyperbaric Bupivacaine (Intrathecal) 1.2 mL LR 500 mL Agents Name NO HELIOX O2 N2O Air Exp Sevoflurane Exp Isoflurane Exp Desflurane Exp N2O Ins Sevoflurane Ins Isoflurane Ins Desflurane O2 Auxiliary Blood No blood administrations on file. Lines, Drains, and Airways Type Details Placement Removal Peripheral IV 11/30/21; 1701; 18 G; BD; 11/30/21 1701 by Pradip subramanian, 12/01/21 1448 by Anne Marie, Anterior, Left; Lower ROSA Lemos RN forearm; Chlorhexidine; None; Tolerated well documented in this encounter Social History Tobacco [...] have Coronavirus/COVID-19? documented as of this encounter OR Notes Anesthesia Postprocedure Evaluation - Ar Morgan MD - 12/01/2021 11:24 AM CDT Patient: Neyda Stauffer Procedure: Procedure(s): CERCLAGE, CERVIX, VAGINAL APPROACH Anesthesia Type: Spinal Note: Disposition: Admission Postop Pain Control: Uneventful Sign Out: Well controlled pain PONV: No Neuro/Psych: Uneventful Sign Out: Acceptable/Baseline neuro status Airway/Respiratory: Uneventful Sign Out: Acceptable/Baseline resp. status CV/Hemodynamics: Uneventful Sign Out: Acceptable CV status; No obvious hypovolemia; No obvious fluid overload Other NRE: NONE DID A NON-ROUTINE EVENT OCCUR? No Last vitals: Vitals Value Taken Time BP 109/69 12/01/21 1115 Temp Pulse 93 12/01/21 1119 Resp SpO2 98 % 12/01/21 1119 Vitals shown include unvalidated device data. Electronically Signed By: Ar Morgan MD December 01, 2021 11:24 AM Anesthesia Procedure Notes - Flores Macario MD - 12/01/2021 9:46 AM CDT Associated Order(s): Spinal Block Intrathecal injection Procedure Note Pre-Procedure Staff - Anesthesiologist: Ar Morgan MD Resident/Fellow: Gisela David MD Performed By: resident Location: OR Pre-Anesthestic Checklist: patient identified, IV checked, risks and benefits discussed, informed consent, monitors and equipment checked, pre-op evaluation, at physician/surgeon's request and post-oppain management Timeout: Correct Patient: Yes Correct Procedure: Yes Correct Site: Yes Correct Position: Yes Procedure Documentation Procedure: intrathecal injection Patient Position: sitting Patient Prep/Sterile Barriers: sterile gloves, mask Skin prep: Chloraprep Insertion Site: L3-4. (midline approach). Needle Gauge: 25. Needle Length (Inches): 3.5 Spinal Needle Type: Pencan Introducer used Introducer: 20 G # of attempts: 2 and # of redirects: 0 Assessment/Narrative Paresthesias: No and Resolved. CSF fluid: clear. Opening pressure was cmH2O while Sitting. Medication(s) Administered 0.75% Hyperbaric Bupivacaine (Intrathecal) - Intrathecal 1.2 mL - 12/01/2021 9:25:00 AM Anesthesia Procedure Notes - Flores Macario MD - 12/01/2021 9:41 AM CDT Associated Order(s): Spinal Block Intrathecal injection Procedure Note Pre-Procedure Staff - Anesthesiologist: Ar Morgan MD Resident/Fellow: Flores Macario MD Performed By: resident Location: OR Pre-Anesthestic Checklist: patient identified, IV checked, risks and benefits discussed, informed consent, monitors and equipment checked, pre-op evaluation, at physician/surgeon's request and post-oppain management Timeout: Correct Patient: Yes Correct Procedure: Yes Correct Site: Yes Correct Position: Yes Procedure Documentation Procedure: intrathecal injection Patient Position: sitting Patient Prep/Sterile Barriers: sterile gloves, mask Skin prep: Chloraprep Insertion Site: L3-4. (midline approach). Needle Gauge: 25. Needle Length (Inches): 3.5 Spinal Needle Type: Pencan Introducer used Introducer: 20 G # of attempts: 1 and # of redirects: 0 Assessment/Narrative Paresthesias: No. Sensory Level: L2 CSF fluid: clear. Opening pressure was cmH2O while Sitting. Medication(s) Administered 0.75% Hyperbaric Bupivacaine (Intrathecal) - Intrathecal 1.2 mL - 12/01/2021 9:37:00 AM Comments: Patient remained sensate 10 min after first spinal block, decision was made to repeat spinal block prior to prepping. Anesthesia Preprocedure Evaluation - Flores Macario MD - 12/01/2021 8:17 AM CDT Anesthesia Pre-Procedure Evaluation Patient: Neyda Stauffer : 1985 Procedure : Procedure(s): CERCLAGE, CERVIX, VAGINAL APPROACH History reviewed. No pertinent past medical history. Past Surgical History: Procedure Laterality Date ??? WISDOM TOOTH EXTRACTION Bilateral 2018 No Known Allergies Social History Tobacco Use ??? Smoking status: Never Smoker ??? Smokeless tobacco: Never Used Substance Use Topics ??? Alcohol use: Not Currently Wt Readings from Last 1 Encounters: 11/30/21 66.7 kg (147 lb) Anesthesia Evaluation Pt has had prior anesthetic. Type: General and Regional. No history of anesthetic complications ROS/MED HX ENT/Pulmonary: - neg pulmonary ROS Neurologic: - neg neurologic ROS Cardiovascular: - neg cardiovascular ROS METS/Exercise Tolerance: >4 METS Hematologic: (+) anemia, Musculoskeletal: - neg musculoskeletal ROS GI/Hepatic: - neg GI/hepatic ROS Renal/Genitourinary: - neg Renal ROS Endo: - neg endo ROS Psychiatric/Substance Use: (+) psychiatric history depression Infectious Disease: - neg infectious disease ROS Malignancy: - neg malignancy ROS Other: (+) Possibly , , Physical Exam Airway Mallampati: III TM distance: > 3 FB Neck ROM: full Mouth opening: > 3 cm Respiratory Devices and Support Dental no notable dental history Cardiovascular cardiovascular exam normal Pulmonary pulmonary exam normal OUTSIDE LABS: CBC: Lab Results Component Value Date WBC 9.1 11/30/2021 WBC 9.8 02/02/2021 HGB 10.6 (L) 11/30/2021 HGB 9.9 (L) 02/02/2021 HCT 31.9 (L) 11/30/2021 HCT 29.8 (L) 02/02/2021 PLT 318 11/30/2021 PLT 333 02/02/2021 BMP: No results found for: NA, POTASSIUM, CHLORIDE, CO2, BUN, CR, GLC COAGS: No results found for: PTT, INR, FIBR POC: No results found for: BGM, HCG, HCGS HEPATIC: No results found for: ALBUMIN, PROTTOTAL, ALT, AST, GGT, ALKPHOS, BILITOTAL, BILIDIRECT, SHANNAN OTHER: No results found for: PH, LACT, A1C, SARA, PHOS, MAG, LIPASE, AMYLASE, TSH, T4, T3, CRP, SED Anesthesia Plan ASA Status: 2 Anesthesia Type: Spinal. Consents Anesthesia Plan(s) and associated risks, benefits, and realistic alternatives discussed. Questions answered and patient/visitor services representative(s) expressed understanding. - Discussed: - Discussed with: Patient Postoperative Care Comments: Other Comments: 36 yo at 23y3d here for cerclage placement for labor and cervical insufficiency. PMHx of anemia, depression. Plan for spinal anesthetic. Flores Macario MD documented in this encounter Miscellaneous Notes Anesthesia Care Transfer Note - Flores Macario MD - 12/01/2021 10:29 AM CDT Patient: Neyda Stauffer Procedure: Procedure(s): CERCLAGE, CERVIX, VAGINAL APPROACH Diagnosis: Cervical incompetence [N88.3] Diagnosis Additional Information: No value filed. Anesthesia Type: Spinal Note: Oropharynx: oropharynx clear of all foreign objects and spontaneously breathing Level of Consciousness: awake Oxygen Supplementation: room air Independent Airway: airway patency satisfactory and stable Dentition: dentition unchanged Vital Signs Stable: post-procedure vital signs reviewed and stable Report to RN Given: handoff report given Patient transferred to: Labor and Delivery Handoff Report: Identifed the Patient, Identified the Reponsible Provider, Reviewed the pertinent medical history, Discussed the surgical course, Reviewed Intra-OP anesthesia mangement and issues during anesthesia, Set expectations for post-procedure period and Allowed opportunity for questions and acknowledgement of understanding Vitals: Vitals Value Taken Time BP 112/72 12/01/21 1024 Temp Pulse 92 12/01/21 1028 Resp SpO2 99 % 12/01/21 1028 Vitals shown include unvalidated device data. Electronically Signed By: Flores Macario MD December 01, 2021 10:29 AM documented in this encounter Plan of Treatment Not on filedocumented as of this encounter Procedures Procedure Name Priority Date/Time Associated Diagnosis Comme nts ANE SPINAL BLOCK Routine 12/01/2021 9:46 AM Resul ts for this FORM CDT procedure are i n the results section. ANE SPINAL BLOCK Routine 12/01/2021 9:41 AM Resul ts for this FORM CDT procedure are i n the results section. documented in this encounter Results Spinal Block (12/01/2021 9:46 AM CDT) Narrative Flores Macario MD - 12/01/2021 9:46 [...] - 12/01/2021 9:25:00 AM Ar Morgan MD [place] ANESTHESIA Spinal Block (12/01/2021 9:41 AM CDT) Narrative Flores Macario MD - 12/01/2021 9:41 A M CDT Flores Macario MD ? 12/01/2021 ??9:54 AM Intrathecal injection Procedure Note Pre-Procedure Staff - ? Anesthesiologist: ??Augustine Morgan MD ? Resident/Fellow: Flores Macario MD ? Performed By: resident ? Location: [...] Introducer: 20 G ? # of attempts: 1 and ??# of redir ects: ??0 Assessment/Narrative ? Paresthesias: No. ? Sensory Level: L2 ? CSF fluid: clear. ? Opening pressure was cmH2O while ??Sitting. Medication(s) Administered 0.75% Hyperbaric Bupivacaine (Intratheca l) - Intrathecal 1.2 mL - 12/01/2021 9:37:00 AM Comments: ??Patient remained sensate 10 min after first spinal block, decision was made to repeat spinal block prior to prepping. Ar Morgan MD [place] ANESTHESIA documented in this encounter Visit Diagnoses Not on filedocumented in this encounter Administered Medications Inactive Administered Medications - up to 3 most recent administrations Medication Order MAR Action Action Date Dose Rate Site bupivacaine 0.75% in dextrose Given 12/01/2021 9:37 AM CDT 1.2 m Ls 8.25% (intrathecal) (SENSORCAINE) 0.75-8.25 % injection Intrathecal, Starting on Pinky 12/01/21 at 0937, Anesthesia Intra-op bupivacaine 0.75% in dextrose 8.25% Given 12/01/2021 9:25 AM CDT 1.2 mLs (intrathecal) (SENSORCAINE) 0.75-8.25 % injection Intrathecal, Starting on Pinky 12/01/21 at 0925, Anesthesia Intra-op lactated ringers infusion New Bag 12/01/2021 9:08 AM CDT Intravenous, CONTINUOUS PRN, Anesthesia Intra-op, Starting on Pinky 12/01/21 at 0908, Until Pinky 12/01/21 at 1029 ondansetron (ZOFRAN) injection Given 12/01/2021 9:11 AM CDT 4 mg Intravenous, PRN, Administer over 2-5 Minutes, Starting on Pinky 12/01/21 at 0911, Anesthesia Intra-op phenylephrine 0.2 mg/mL Rate/Dose Change 12/01/2021 9:55 AM 10 mcg/mi n 3 mL/hr (mcg/min) drip CDT Intravenous, CONTINUOUS PRN, Starting on Pinky 12/01/21 at 0942, Anesthesia Intra-op Rate/Dose Change 12/01/2021 9:50 AM CDT 30 mcg/min 9 mL/hr New Bag 12/01/2021 9:42 AM CDT 50 mcg/min 15 mL/hr documented in this encounter Care Teams Top Lift Trimmer Relationship Specialty Start Date End Date No Ref-Primary, Physician PCP - General 02/02/21 documented as of this encounter
--- OUTSIDE RECORDS SUMMARY | 2021-12-29 14:27 | XMS_ITS | Encounter Summary ---
:1985 Author Organization [place] Address [address] [facility] [address] Care Team Providers Name Role Phone No Ref-Primary, Physician Primary Care Provider [phone] Reason for Visit Reason Comments Labor Auth/Cert Specialty Diagnoses / Procedures Referred By Contact Refer red To Contact pulmonology physician Diagnoses Cervical shortening Cervical shortening Ur [address]bob [address] [place] [address] Phone: Referral ID Status Reason Start Date Expiration Date Visits Requ ested Visits Authorized [id number] 1 1 Encounter Details Date Type Department Care Team Description [facility]/2021 [facility] Birthplace DO Anca in second trimester [address] (Primary Dx) [place], [place] [address] [address] [place], [place] [phone] [address] Social History Tobacco Use Types Packs/Day Years [...] Damon DO - 12/01/2021 10:34 AM CDT [facility] Discharge Summary Neyda Stauffer Age: [age] year [...] [facility]. Hospital Course: Patient [...] activities for this patient. Jacqueline Damon DO [facility] Maternal Medicine Specialist Pager: [phone] documented in this encounter Discharge Instructions Discharge InstructionsMarjorie Kenney RN - 12/01/2021 2:52 PM CDT Undelivered Patients Discharge Instructions: [facility] vieron por: cervical cerclage placement Consultamos a: Maternal Medicine Le hicieron/recibi?? (examen o medicamento):cervical cerclage Dieta: Drink 8 to 12 glasses of liquids (milk, juice, water) every day. You may eat meals and snacks. Actividad: Call your doctor or nurse fishing boat mate if your baby is moving less than [...] nguyen ropa interior. Joel maggie brillante en ngueyn ropa interior. Dolor en la parte baja del vientre (abdomen) o est??wesley. Para el primer beb??: Contracciones (tirantez) con menos de 5 minutos de diferencia entre roly y otrapor roly hora o m??s. Xenia beb?? (en adelante): Contracciones (tirantez) con menos [...] issue. Pt stable to transfer back to [facility] for remainder of recovery. IAT Mitzi Damonhergely March, DO - 12/01/2021 8:11 AM CDT MFM Antepartum Progress Note Subjective: Today, she is feeling well. Denies contractions, leaking of fluid, vaginal bleeding, or decreased movement. associate professor of sociology used via telephone. Objective: Vitals: 11/30/21 2130 [...] accels, no decels, appropriate for gestational age [place]: no contractions Ultrasound, 12/01/2021: 1) Rogers intrauterine [...] were answered to her satisfaction with a associate professor of sociology. # Short cervix - Consent as above [...] patient): 12/01/21 Time Spent on this Encounter IJacqueline DO, spent a total of 15 minutes face to face or coordinating care of Neyda Stauffer. Over 50% of my time on the unit was spent counseling the patient and/or coordinating care regarding US indicated cerclage. documented in this encounter H&P Notes Jacqueline Damon DO - 11/30/2021 5:00 PM CDT [facility] OB History and Physical Neyda Stauffer Age: [age] year old Date of : 1985 CC: Shortened cervix Phone associate professor of sociology present HPI: Neyda Stauffer is a 36 [...] Status: No results found for: GBS Ultrasounds [facility] US Comprehensive Single Narrative: Comprehensive Pat. Name: NEYDA JIANG Study Date: 11/30/2021 1:26pm Pat. 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 Inferior vena cava. 3-vessel view. 0-vkjhgw-wiqzvre view. Cardiac position. Cardiac size. Cardiac rhythm. [...] ultrasound-indicated cerclage at this time. Birthplace at [facility] was notified and the case [...] this encounter in the care of Neyda Jeancesarthao Stauffer, includin minutes reviewing the patient's chart [...] mod variability, + accelerations, occasional variable decelerations [place]: Quiet, no contractions Assessment Ms. Neyda Stauffer is a 36 year old , at 23w2d by LMP c/w 1st trimester US admitted for US-indicated cerclage for shortened cervix. 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 Nelson Novoa MD INFECTION PREVENTION COORDINATOR, PGY-3 11/30/2021, 5:00 PM Physician Attestation Jacqueline Davis DO, , saw and evaluated Neyda Stauffer with the [...] the morning. NST: reassuring for gestational age [place]: quiet Jacqueline Damon DO Date of Service (when I saw the patient): 11/30/21 Time Spent on this Encounter IJacqueline DO, spent a total of 30 minutes [...] discharged to home per Dr Damon and M team. Patient VSS post cerclage placement, pt [...] was diagnosed with a short cervix at [facility], 22mm. She has history of delivery at [...] Damon DO FACOG Maternal Medicine Specialist Pager: [phone] Plan of Care - Angelica Gastelum RN [...] With: patient Overall Patient Progress: improving VSS. [place] shows no contractions. FHTs AGA. Neyda denies [...] 5:49 PM CDT Data: Patient presented to [facility] at 1510. Reason for maternal/ assessment per [...] Code Phon e Number UU IDD LABORATORY [facility] [place] [id number] Diag. Lab [address] [facility], [address] UA reflex to Microscopic (11/30/2021 4:44 PM CDT) [facility] Method Time Signature Color Urine Straw Colorless, 11/30/2021 UR LABORATORY Straw, Light 5:19 PM CDT Yellow, Yellow Appearance Urine Clear Clear 11/30/2021 UR LABORATOR Y 5:19 PM CDT Glucose Urine Negative Negative 11/30/2021 UR LABORATORY mg/dL 5:19 PM CDT Bilirubin Urine Negative Negative 11/30/2021 UR LABORATORY 5:19 PM CDT Ketones Urine Negative Negative 11/30/2021 UR LABORATORY mg/dL 5:19 PM CDT Specific [place] 1.008 1.003 - 11/30/2021 UR LABORATOR Y [...] City/State/ZIP Code Phon e Number UR LABORATORY [facility] [place] [phone] Care Lab [address] [facility], [address] Asymptomatic COVID-19 Virus (Coronavirus) [...] exposure or clinical presentation sugges ts COVID-19. ??[facility] are certified under the Clinical Laborat ory Improvement Amendments of 1988 (CLIA-88) as qualified to perform moderate and/or high complexity laboratory testing. Bev Novoa MD LAB - MICRO GENERAL ORDERABL ES Performing Organization Address City/State/ZIP Code Phon e Number UR LABORATORY [facility] [place] [phone] Care Lab [address] [facility], [address] Adult Type and Screen (11/30/2021 4:15 PM CDT) Patholo gist Method Time Signature ABO/RH(D) O POS 11/30/2021 UR BLOOD 4:00 PM CDT BANK Antibody Negative Negative 11/30/2021 UR BLOOD Screen 4:00 PM CDT BANK SPECIMEN [id number] 11/30/2021 UR BLOOD EXPIRATION 4:00 PM CDT BANK DATE Specimen Anatomical Collection Method / Collection Time Recei melvi Time (Source) Location / Volume Laterality Blood STRUCTURE OF LEFT Venipuncture / 11/30/2021 4:15 11/30 4:44 UPPER LIMB / Unknown PM CDT PM CDT Unknown Bev Novoa MD LAB - BLOOD BANK TEST ORDER Performing Organization Address City/State/ZIP Code Phon e Number UR BLOOD BANK [facility] [place] [address] Components Lab [address] [facility], [address] (ABNORMAL) CBC with platelets and differential (11/30/2021 4:15 PM CDT) [facility] gist Method Time Signature WBC Count 9.1 4.0 [...] City/State/ZIP Code Phon e Number UR LABORATORY [facility] [place] [address] Care Lab [address] [facility], [address] Group B strep PCR [...] - 12/01/2021 8:59 PM C DT The e-SENS Xpert GBS LB Assay, performe d on the [employer] Systems, is a qualitative in vitro [...] or monitor treatment for GBS infections. The e-SENS Xpert GBS LB Ass ay is intended for use in hospital, reference or state laboratory settings. The device is not intended for nakue-ti-iwfn use. Bev Novoa MD LAB - MICRO GENERAL ORDERABL ES Performing Organization Address City/State/ZIP Code Phon e Number UU IDD LABORATORY [facility] [place] [phone] Diag. Lab [address] [facility], [address] (ABNORMAL) Wet prep (11/30/2021 [...] Swab VAGINAL STRUCTURE Non-blood 11/30/2021 4:11 PM 08/07/2021 4:39 / Unknown Collection / CDT PM CDT Unknown Bev Novoa MD LAB - MICRO GENERAL ORDERABL ES Performing Organization Address City/State/ZIP Code Phon e Number UR LABORATORY [facility] [place] [address] Care Lab [address] [facility], [address] documented in this encounter Visit Diagnoses Diagnosis Cervical shortening in second trimester - Primary Cervical shortening, antepartum conditio n or complication documented in this encounter Admitting Diagnoses Diagnosis [...] 6 HOURS PRN, i tching, Starting on 11/30/21 at 1552, Give IV only if unable to take PO, Antepartum hydrOXYzine (ATARAX) tablet 50 mg Given 11/30/2021 9:46 PM CDT 50 mg 50 mg, Oral, AT BEDTIME PRN, sleep, Starting on 11/30/21 at 1552, Antepartum indomethacin (INDOCIN) capsule 50 [...] 6 HOURS PRN, nausea, vomiting, Starting on 11/30/21 at 1548, This is Step [...] 12/01/2021 indomethacin (INDOCIN) capsule 50 mg (COMPLETED) 1106 (Given - Provider: Mishel Luna RN) 50 mg, Oral, ONCE, On Pinky 12/01/21 at 1100, For 1 dose progesterone (PROMETRIUM) capsule 200 mg 2141 (Given - Provider: Jayashree Lopez RN) 200 mg, Vaginal, AT BEDTIME, First dose on Sun11/30/21 at 2200 sodium chloride (PF) 0.9% PF flush 3 mL 1701 (Given - Provider: Jayashree Lopez RN)2330 (Given - Provider: Angelica Gastelum RN) 0800 [...] (COMPLETED) 0900 (Given - Provider: Mishel Luna, RN) 30 mL, Oral, ONCE, On Pinky 12/01/21 [...] vomiting, Administer over 2-5 Minutes, Starting on 11/30/21 at 1548, This is Step 2 of [...] vomiting, Administer over 2 Minutes, Starting on 11/30/21 at 1548, This is Step 3 of OB nausea and vomiting management. Give if nausea not resolved 15 m inutes after giving ondansetron (ZOFRAN) . If nausea is not resolved in 30 minutes, notify provider., Antepartum prochlorperazine (COMPAZINE) suppository 25 mg(Linked Group 5) 25 mg, Rectal, EVERY 12 HOURS PRN, nause a, vomiting, Starting on 11/30/21 at 1548, This is Step 3 of OB nausea and vomiting management. Give if nausea not resolved 15 minutes after giving ondansetron (ZOFRAN). If nausea is not resolved in 30 minutes, notify provider., Antepartum prochlorperazine (COMPAZINE) tablet 10 mg(Linked Group 5) 10 mg, Oral, EVERY 6 HOURS PRN, nausea, vomiting, Starting on 11/30/21 at 1548, This is Step 3 of [...] after each naloxone dose. Consider transfer to [facility] if patient respiratory parameters hav e [...]
Antepartum documented in this encounter Care Teams Automatic Pinsetter Adjuster Relationship Specialty Start Date End Date No Ref-Primary, Physician PCP - General 02/02/21 documented as of this encounter
--- OUTSIDE RECORDS SUMMARY | 2021-12-29 14:27 | XMS_ITS | Encounter Summary ---
:1985 Author Organization [facility] Address [address] [place] [address] Care Team Providers Name Role Phone No Ref-Primary, Physician Primary Care Provider [phone] Reason for Visit Reason Comments Ultrasound L2/TV-short cervix Encounter Details Date Type Department Care Team Description 11/29/[address] [facility] Sarah Beth Alejandre Ultra sound (L2/TV-short Maternal Medicine M, RN cerv ix) [facility] [address] [place] [address] Social History Tobacco Use Types Packs/Day Years [...] Assigned at Date Recorded Not on file documented as of this encounter Plan of Treatment Not on filedocumented as of this encounter Visit Diagnoses Not on filedocumented in this encounter Care Teams Railway Head Tender Relationship Specialty Start Date End Date No Ref-Primary, Physician PCP - General 02/02/21 documented as of this encounter
--- OUTSIDE RECORDS SUMMARY | 2021-12-29 14:27 | XMS_ITS | Encounter Summary ---
:1985 Author Organization [facility] Address [address] [place] [address]. [place] [address] Care Team Providers Name Role Phone No Ref-Primary, Physician Primary Care Provider [phone] Reason for Visit Auth/Cert Specialty Diagnoses / Procedures Referred By Contact Refer red To Contact lay out technician Diagnoses labor MAternity*mary: 03/11/21/PTL labor Ur [facility] [address] [place] [address] Phone: Referral ID Status Reason Start Date Expiration Date Visits Requ ested Visits Authorized [id number] 1 1 Encounter Details Date Type Department Care Team Description 02/03/2021 Virtual Visit [facility] Leda Long Supervisor [facility] [address] [place] [address] [phone] Social History Tobacco Use Types Packs/Day Years [...] on filedocumented in this encounter Care Teams Ag Service Manager Relationship Specialty Start Date End Date No Ref-Primary, Physician PCP - General 02/02/21 documented as of this encounter
--- OUTSIDE RECORDS SUMMARY | 2021-12-29 14:27 | XMS_ITS | Encounter Summary ---
:1985 Author Organization [facility] Address [address] [place] [address]. 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 Diagnoses labor MAternity*mary: 03/11/21/PTL labor Ur [address] [address] [place] [phone] Phone: Referral ID Status Reason Start Date Expiration Date Visits Requ ested Visits Authorized [id number] 1 1 Encounter Details Date Type Department Care Team Description 02/02/2021 - Hospital Encounter [facility] Naty Carlson MD [address] [facility] [address] [place], [place] [phone] Bacterial vaginosis in (Primar y Dx); 02/04/2021 [facility] Birthplace Rebecca Nolasco MD [address] [facility] [address] [place], [place] [phone] labor in third trimester without delivery [address] [place] [address] Social History Tobacco Use Types Packs/Day Years [...] on file documented as of this encounter Last Filed Vital Signs Vital Sign Reading Time Taken Comments Blood Pressure 110/56 02/04/2021 8:01 AM CDT Pulse 93 02/02/2021 8:53 PM CDT Temperature 36.7 ??C (98 ??F) 02/04/2021 8:01 AM CDT Respiratory Rate 16 02/04/2021 3:22 AM CDT Oxygen Saturation - - Inhaled Oxygen Concentration - - Weight - - Height - - Body Mass Index - - documented in this encounter Discharge Summaries Nya Carlson MD - 02/04/2021 9:07 AM CDT ANTEPARTUM DISCHARGE SUMMARY [facility] Neyda Stauffer [id number] Date of Admission: 02/02/2021 Date of Discharge: 02/04/21 Admission Diagnoses: - IUP @ 34w5d - Contractions - history of Genital HSV - Obesity - Failed GCT/ passed GTT - Chlamydia in - Depression Discharge Diagnoses: - IUP at 35w0d - threatened labor - bacterial vaginosis Provider for admission: Rebecca Nolasco MD Provider for discharge: Nya Carlson MD Procedures: none Admission History: Neyda Stauffer is a 35 year old yo at 34w5d by LMP c/w first trimester US that presented to [facility] with contractions for 1 day. Patient had a positive FFN, and was noted to be dilated to 3-4/60/0 at outside hospital. She was stared on PCN for GBS prophylaxis, and given fluid resuscitation. Hospital Course: She was stable during her admission here. Her contractions subsided and she remained comfortable. Her cervix made no further change and was 3cm at the time of discharge. She was started on flagyl for BV. She received her course of BMZ on 02/02 and 02/03. She had no other events during her admission Discharge Instructions: - Follow up with your primary photogravure press operator this week - return precautions discussed Discharge Medications: Review of your medicines START taking Dose / Directions metroNIDAZOLE 500 MG tablet Commonly known as: FLAGYL Indication: BV Used for: Bacterial vaginosis in Dose: 500 mg Take 1 tablet (500 mg) by mouth 2 times daily for 4 days Quantity: 8 tablet Refills: 0 Where to get your medicines These medications were sent to [facility] [place], [place] - [address] [address] ?? metroNIDAZOLE 500 MG tablet August Garner MD [facility] PGY-2 02/04/2021 9:10 AM Nya Carlson MD, FACOG (she/her/hers) Piano Builder Department of Stove Tender/Women's Health [facility] [employer] [facility] [address] [place] [address] [email or web address] p. [phone] f. [phone] 02/04/2021 2:48 PM documented in this encounter Discharge Instructions Discharge InstructionsJuliocesar Almeida RN - 02/04/2021 9:20 AM CDT Discharge Instruction for Undelivered Patients You were seen for: Assessment We Consulted: Dr Ty You had (Test or Medicine): assesment Call your provider if you notice: Swelling in your face or increased swelling in your hands or legs. Headaches that are not relieved by Tylenol (acetaminophen). Changes in your vision (blurring: seeing spots or stars.) Nausea (sick to your stomach) and vomiting (throwing up). Weight gain of 5 pounds or more per week. Heartburn that doesn't go away. Signs of bladder infection: pain when you urinate (use the toilet), need to go more often and more urgently. The bag of quijano (rupture of membranes) breaks, or you notice leaking in your underwear. Bright red blood in your underwear. Abdominal (lower belly) or stomach pain. For first baby: Contractions (tightening) less than 5 minutes apart for one hour or more. Second (plus) baby: Contractions (tightening) less than 10 minutes apart and getting stronger. *If less than 34 weeks: Contractions (tightening) more than 6 times in one hour. Increase or change in vaginal discharge (note the color and amount) Follow-up: As scheduled in the clinic documented in this encounter Medications at Time of Discharge Medication Sig Dispensed Refills Start Date End Date metroNIDAZOLE (FLAGYL) 500 Take 1 tablet (500 8 tablet 0 1 02/08/2021 MG tabletIndications: BV mg) by mouth 2 times daily for 4 days documented as of this encounter Progress Notes Jodi Leslie MD - 02/03/2021 12:30 PM CDT Antepartum Progress Note S: Patient feeling excellent this morning. She says she feels better than yesterday. She is feeling no contractions. Denies vaginal bleeding, leakage of fluid. Feeling normal FM. No other complaints O: BP 109/58 Pulse 93 Temp 98 ??F (36.7 ??C) (Oral) Resp 16 Gen: Appears well, NAD CV: Regular rate Abd: Gravid, nontender Ext: Warm, well perfused, no edema bilaterally. Weight: Wt Readings from Last 2 Encounters: No data found for Wt FHT: 140 baseline, moderate variability, + accels, no decels TOCO: 1 ctx in 10 minutes A/P: Neyda Stauffer is a 35 year old female at 34w6d by LMP c/w 1st [facility], HD#2 admitted for labor as a transfer from [facility]. notable for genital HSV, failed GCT passed GTT, depression, and chlamydia in preg. ?? # Labor - Cervix 3-4/60/0 at OSH, 4/60/-1 here last night. Repeat SVE PRN. - positive FFN at OSH - Labs: normal UA, neg UDS. Pending: GC/CT, GBS. - Wet prep collected at OSH w/ > 20% clue cells. Will plan to treat for BV with Flagyl 500 mg BIDfor 7 days. - GBS pending, was on PCN, now stopping as she is clinically stable - HSV: start acyclovir. BLE negative. Repeat PRN - s/p BMZ x1, will give second tonight. - if clinically stable, plan to discharge tomorrow. ?? # Wellbeing - Cat I FHT, reactive - Cephalic by BSUS - GBS pending # PNC - Rh pos, Rubella immune - failed GCT passed GTT Patient discussed with Dr. Leslie. August Garner MD [facility] PGY-2 02/03/2021 9:56 AM The patient was seen and examined by me separately from the team. I have reviewed and agree with theabove note. She is feeling very well this evening, she is not feeling contractions, hoping to be able to go home tomorrow. Plan second betamethasone tonight at 8 pm, possible discharge tomorrow if remains stable overnight. Jodi Leslie MD, FACOG Katya Landaverde MD - 02/03/2021 4:41 AM CDT Brief progress note: S: patient sleeping comfortably. O: Vitals: 02/02/21 1714 02/02/21 2053 02/03/21 0022 02/03/21 0425 BP: 115/72 108/59 114/67 116/64 Pulse: 93 Resp: 18 16 16 Temp: 98.8 ??F (37.1 ??C) 98.3 ??F (36.8 ??C) 97.9 ??F (36.6 ??C) TempSrc: Oral Oral Oral FHT: baseline 130, moderate variability, accels present, no decels TOCO: 1 ctx in 10 min SVE: deferred. Was previously 3-4/60/0 at OSH > 4/60/-1 on admission. A/P: 35yo at 34w6d by LMP c/w early US admitted as OPAL from [facility] for labor evaluation. ?? # Labor - Repeat SVE PRN if clinically indicated. Will defer unless significant change in symptoms or FHT. Given GA will not augment labor at this time, but also will not complete tocolysis. - positive FFN at OSH - Labs obtained include UDS (neg); GC/CT, GBS pending - Wet prep collected at OSH w/ > 20% clue cells. Today D#2/7 Flagyl 500 mg BID for BV - Continue maintenance IVF @ 125/h - S/p DIGESTER consult, discussed risks/benefits of BMZ - now s/p 1x dose. # HSV - BLE negative on admission. Repeat PRN - Started on acyclovir ppx ?? # Wellbeing - Cat I FHT, reactive - continuous EFM. - Cephalic by BSUS on admission - GBS pending - continue abx ppx for status. Katya Landaverde MD ObGyn, PGY-2 02/03/21 4:43 AM documented in this encounter H&P Notes Rebecca Nolasco MD - 02/02/2021 5:46 PM CDT [facility] OB History and Physical Neyda Stauffer Age: [age] year old Date of : 1985 CC: Contractions HPI: Neyda Stauffer is a 35 year old yo at 34w5d by LMP c/w first trimester US that presented to [facility] with contractions that started early this AM. They were painful. Patienthad a positive FFN, and was noted to be dilated to 3-4/60/0 at outside hospital. She was started on a mpicillin for GBS prophylaxis, and given fluid resuscitation. She was transferred to [facility] for further management On arrival, patient continues to feel intermittent contractions but they have spaced some. She feelspelvic pressure mostly with movement. She denies leakage of fluid or vaginal bleeding. She is feeling active movement. Denies HINOJOSA, vision changes, CP, SOB, dysuria, hematuria, change in vaginal discharge. She has a history of HSV. She has some labial sensitivity and tingling but doesn't feel like she has lesions yet. Last outbreak was several years ago. Complications: - Genital HSV - Obesity - Failed GCT/ passed GTT - Chlamydia in - Depression GBS Status: GBS Unknown, pending OB History 2 prior at term, uncomplicated OB History Para Term AB Living 5 2 2 0 2 2 SAB TAB Ectopic Multiple Live Births 0 0 0 0 0 # Outcome Date GA Lbr Nilay/2nd Weight Sex Delivery Anes PTL Lv 5 Current 4 AB 3 AB 2 Term 1 Term PMHx: - GERD - Genital HSV - Hx of Chlamydia, s/p treatment - Hx of Depression PSHx: - Dilation and Curettage x 2 (in 2010, 2020) Meds: PNV Allergies: No Known Allergies FmHx Per Chart Review: History reviewed. No pertinent family history. SocHx: She denies any tobacco, alcohol, or other drug use during this . ROS: Complete 10-point ROS negative except as noted in HPI. PE: Vit: Patient Vitals for the past 4 hrs: BP Temp Temp src Resp 02/02/21 1714 115/72 98.8 ??F (37.1 ??C) Oral 18 Gen: Well-appearing, NAD, comfortable CV: Regular rate, well perfused Pulm: Breathing comfortably on room air Abd: Soft, gravid, non-tender Ext: trace LE edema b/l BLE No HSV lesions visible SSE Normal vulva and vagina. White vaginal discharge present. Cervix appeared normal and visually dilated SVE 4/60/-1/mid/soft Pres: Cephalic by BSUS FHT: Baseline 150, moderate variability, + accelerations, no decelerations [place]: 3 contractions in 10 minutes Assessment/Plan Neyda Stauffer is a 35 year old yo at 34w5d by LMP c/w first trimester US that presented to [facility] with contractions for 1 day with concern for labor. # Labor - Cervix 3-4/60/0 at OSH. Now 4/60/-1. Repeat SVE PRN. Given GA will not augment labor at this time,but also will not complete tocolysis. - positive FFN at OSH - Labs obtained include UA/UCx, UDS, GC/CT, GBS. - Wet prep collected at OSH w/ > 20% clue cells. Will plan to treat for BV with Flagyl 500 mg BIDfor 7 days. - Continue PCN for GBS prophylaxis - Continue maintenance IVF @ 125/h - HSV: start acyclovir. BLE negative. Repeat PRN - Discussed administration of betamethasone in the late period. Patient does not have any relative contraindications such as diabetes. Discussed benefits including decreased risk of RDS, intraventricular hemorrhage, and necrotizing enterocolitis. She would like to talk with the NICU team and then will decide if she should do BMZ. # Wellbeing - Cat I FHT, reactive - Cephalic by BSUS - GBS Unknown- continue PPx for status. The patient was discussed with Dr. Nolasco who is in agreement with the treatment plan. August Garner MD [facility] PGY-2 02/02/2021 6:57 PM Staff MD Note I appreciate the note by Dr. Garner. Any necessary changes have been made by me. I saw and evaluated the patient and agree with the findings and plan of care as documented in the note. Rebecca Nolasco MD documented in this encounter Miscellaneous Notes Plan of Care - Juliocesar Almeida RN - 02/04/2021 11:15 AM CDT Pt states is comfortable, denies feeling ctx's, leaking or bleeding. Unchanged cervix, Dr Aldo iraheta send pt home. Discharge home at 1115 ambulating. Discharge meds given. Questions answered. Plan of Care - Cheri Blood RN - 02/04/2021 6:53 AM CDT Labor Shift Note Data: Contraction pattern irregular, pt not feeling . assessment Appropriate for Gestational Age. Betamethasone Completed given on January & January . Magnesium Sulfate for neuroprotection not indicated. Denies LOF, bldg, pain. Interventions: Continue uterine/ assessment TID. Continue preventive measures including stayinghydrated and voiding q2 hrs . Encourage active range of motion and frequent position changes. Instructed to inform care team if having more ctx and getting more uncomfortable. Plan: Continue expectant management. Plan for possible discharge today. Observe for and notify care provider of indications of progressing labor or signs of /maternal compromise. Plan of Care - Mariluz Price RN - 02/03/2021 9:50 PM CDT Had a rare contraction during monitoring session. FHT's 135 with moderate variability and accelerations. No decelerations noted. VSS. Intact membranes and no bleeding. Received her second Betamethasoneinjection this evening. Peasant and cooperative. Offers no complaints. Stable condition. Plan of Care - Leda Benitez RN - 02/03/2021 10:45 AM CDT Pt feels well, not feeling contractions tho maria irregularly. No LOF or bleeding. Baby is active. C/o pain at IV site and eager for removal. Has been painful since placement, no increase in pain, and same amount of pain with each dose of antibiotics. Infusion rate slowed a bit and warm blanketswrapped around arm help with pain. No redness or swelling evident. Pt desires discharge. Awaiting MDfor plan. Plan of Care - Rina Molina RN - 02/03/2021 5:27 AM CDT VSS. Afebrile. Patient denies bleeding and LOF. Has not felt contractions overnight and states she is comfortable. Resting in bed and up to bathroom ad kimberly. FHR and toco monitored continuously. PCN given q4hr for GBS unknown status, results pending. Continue to monitor. Plan of Care - Lu Toro RN - 02/02/2021 11:47 PM CDT VSS, pt states contractions feel less intense and infrequent. Denies bleeding or LOF. Pt transferredto 31 on the 10th floor at 2340. Plan of Care - Coty Harden RN - 02/02/2021 6:18 PM CDT Data: Patient admitted to room 471 at 1702, by ambulance from [facility]. Patient is a . record reviewed. OB History Para Term AB Living 5 2 2 0 0 2 SAB TAB Ectopic Multiple Live Births 0 0 0 0 0 # Outcome Date GA Lbr Nilay/2nd Weight Sex Delivery Anes PTL Lv 5 Current 4 3 2 Term 1 Term . Medical History: History reviewed. No pertinent past medical history. Gestational age 34.5 weeks. Vital signs per doc flowsheet. movement present. Patient reports Labor, Rule Out Labor as reason for admission. Action: Report from communication manager, RN obtained at 1710 and care of patient assumed. Verbal consent for EFM, external monitors applied. Admission assessment completed. Patient educated on labor process. Patient instructed to report change in movement, contractions, vaginal leaking of fluid or bleeding, abdominal pain, or any concerns related to the to her nurse. Patient oriented to room, call light in reach. Response: Dr. Garner informed of patient's arrival. Plan per provider is to admit and will be at bedside shortly to evaluate patient.. Patient verbalized understanding of education and verbalized agreement with plan. Patient denies pain currently. Using Auto Body Worker via IPAD. Provider Notification - Ctoy Harden RN - 02/02/2021 5:52 PM CDT 02/02/21 175 Provider Notification Provider Name/Title Dr. Garner Method of Notification At Bedside Request Evaluate in Person Notification Reason TERESAE performing SVE: /1, collecting labs, cephalic per U/S. Plan to admit patient and for NICU consult. Patient would like to have NICU consult to discuss Betamethasone with DIGESTER. documented in this encounter Plan of Treatment Not on filedocumented as of this encounter Procedures Procedure Name Priority Date/Time Associated Comments Diagnosis COVID-19 VIRUS STAT 02/02/2021 6:54 PM Results for this (CORONAVIRUS) BY PCR CDT procedu re are in the results section. CHLAMYDIA Routine 02/02/2021 6:53 PM Results f or this TRACHOMATIS/NEISSERIA CDT proced ure are in GONORRHOEAE BY PCR the resul ts section. URINE DRUGS OF ABUSE STAT 02/02/2021 6:37 PM R esults for this SCREEN CDT procedure are i n the results section. DRUG ABUSE SCRN 7 UR STAT 02/02/2021 6:37 PM R esults for this (/) CDT procedur e are in (RH, SH, UR) the results section. GROUP B STREP PCR Routine 02/02/2021 6:36 PM Resu lts for this CDT procedure are i n the results section. CBC WITH PLATELETS STAT 02/02/2021 6:09 PM Res ults for this AND DIFFERENTIAL CDT procedure a re in the results section. TYPE AND SCREEN, STAT 02/02/2021 6:09 PM Resul ts for this ADULT CDT procedure are i n the results section. TREPONEMA ABS W STAT 02/02/2021 6:09 PM Result s for this REFLEX TO RPR AND CDT procedure are in TITER the results section. CBC WITH PLATELETS & STAT 02/02/2021 6:09 PM R esults for this DIFFERENTIAL CDT procedure are i n the results section. ABO/RH TYPE AND STAT 02/02/2021 6:09 PM Result s for this SCREEN CDT procedure are i n the results section. documented in this encounter Results Asymptomatic COVID-19 Virus (Coronavirus) by PCR Nasopharyngeal (02/02/2021 6:54 PM CDT) Analysis Performed At Patho logist Time Signature SARS CoV2 PCR Negative Negative 02/02/2021 [facility] 8:55 PM CDT Comment: NEGATIVE: SARS-CoV-2 (COVID-19) RNA not detected, presumed negative. Specimen Anatomical Location / Collection Method Collection Jeff e Received Time (Source) Laterality / Volume Swab NASOPHARYNGEAL Non-blood 02/02/2021 6:54 02/02/2021 7:06 STRUCTURE / Unknown Collection / PM CDT PM CDT Unknown Narrative [facility] - 02/02/2021 8:55 PM CDT Testing was performed using the [...] exposure or clinical presentation sugges ts COVID-19. ??[facility] [employer] are certified under the Clinical Laborat ory Improvement Amendments of 1988 (CLIA-88) as qualified to perform moderate and/or high complexity laboratory testing. Katya Landaverde MD LAB - MICRO GENERAL ORDERABL ES Performing Organization Address City/State/ZIP Code Phon [place] Number [place] [phone] Care Lab [address] [facility], [address] Chlamydia trachomatis/Neisseria gonorrhoeae by PCR (02/02/2021 6:53 PM CDT) [facility] Method Time Signature Chlamydia Negative Negative 02/03/2021 [facility] Trachomatis 1:01 PM CDT LABORATORY Comment: Negative for C. trachomatis rRNA by boyce scription mediated amplification. A negative result by publicity expert media mikal amplification does not preclude the presence of infection because results are dependent on proper and adequate collection, absence of inhibitors and sufficient rRNA to be detected. Neisseria gonorrhoeae Negative Negative 02/03/2021 1:0 1 PM CDT [facility] Comment: Negative for N. gonorrhoeae rRN A by publicity expert mediated amplification. A negative result by publicity expert mediate d amplification does not preclude the presence of C. trachomatis infection bec ause results are dependent on proper and adequate collection, absence of inhibito rs and sufficient rRNA to be detected. Specimen Anatomical Collection Method Collection Time Receive d Time (Source) Location / / Volume Laterality Swab VAGINAL STRUCTURE Non-blood 02/02/2021 6:53 PM 01/08 7:06 / Unknown Collection / CDT PM CDT Unknown Katya Landaverde MD LAB - MICRO GENERAL ORDERABL ES Performing Organization Address City/[facility]/ZIP Code Phon e Number [facility] LABORATORY [facility] [place] [place] [phone] Diag. Lab [address] [facility], [address] [facility] Infectious [place], [place] [phone] Diseases Diagnostic [id number], [facility] Lab (IDDL) [address] [facility], [address] Drug abuse scrn 7 UR (/) (RH, SH, UR) (02/02/2021 6:37 PM CDT) [facility] Method Time Signature Amphetamines Screen Screen 02/02/2021 [facility] Urine Negative Negative 7:00 PM CDT Comment: Cutoff for a negative amphetami ne is 500 ng/mL or less. Cannabinoids Urine Screen Negative Screen Negative 7:00 [facility] PM CDT Comment: Cutoff for a negative cannabino id is 50 ng/mL or less. Cocaine Urine Screen Negative Screen Negative 02/02/2021 7:0 0 PM [facility] CDT Comment: Cutoff for a negative cocaine i s 300 ng/mL or less. Opiates Urine Screen Negative Screen Negative 02/02/2021 7:0 0 PM [facility] CDT Comment: Cutoff for a negative opiate is 300 ng/mL or less. PCP Urine Screen Negative Screen Negative 02/02/2021 7:00 PM CDT [facility] Comment: Cutoff for a negative PCP is 25 ng/mL or less. Specimen Anatomical Collection Method Collection Time Receive d Time (Source) Location / / Volume Laterality Urine URINE SPECIMEN Non-blood 02/02/2021 6:37 PM 021 6:44 OBTAINED BY CLEAN Collection / CDT PM CDT CATCH PROCEDURE / Unknown Unknown August Garner MD LAB - URINE ORDERABLES Performing Organization Address City/State/ZIP Code Phon e Number [facility] [place] [address] Care Lab [address] [facility], [address] Group B strep PCR (02/02/2021 6:36 PM CDT) Analysis Performed At Patho logist Time Signature Group B Strep Negative Negative 02/03/2021 [facility] PCR 8:38 PM CDT LABORATORY Comment: Presumed negative for Streptoco ccus agalactiae (Group B Streptococcus) or the number of organisms may be below the limit of detection of the assay. Penicillin, amoxicillin, or No 02/03/2021 8 :38 PM CDT [facility] cephalosporin allergy? Specimen Anatomical Location Collection Method Collection Time Received Time (Source) / Laterality / Volume Swab STRUCTURE OF Non-blood 02/02/2021 6:36 02/02/2021 6 :44 RECTOVAGINAL SEPTUM Collection / PM CDT PM CDT / Unknown Unknown Narrative [facility] - 02/03/2021 8:38 PM C DT The Cepheid Xpert GBS LB Assay, performe d on the [employer], is a qualitative in vitro [...] or monitor treatment for GBS infections. The [employer] ([employer]id Xpert GBS LB Ass ay is intended for use in hospital, reference or state laboratory settings. The device is not intended for jrfjo-fj-mepk use. August Garner MD LAB - MICRO GENERAL ORDERABL ES Performing Organization Address City/State/ZIP Code Phon e Number [facility] [place] [place] [phone] Diag. Lab [address] [facility], [address] [facility] Infectious [place], [place] [phone] Diseases Diagnostic [phone], [facility] Lab (IDDL) [address] [facility], [address] (ABNORMAL) CBC with platelets and differential (02/02/2021 6:09 PM CDT) [facility] Method Time Signature WBC Count 9.8 4.0 - 02/02/2021 [facility] 11.0 6:32 PM CDT 10e3/uL RBC Count 3.51 (L) 3.80 - 02/02/2021 [facility] 5.20 6:32 PM CDT 10e6/uL Hemoglobin 9.9 (L) 11.7 - 02/02/2021 [facility] 15.7 g/dL 6:32 PM CDT Hematocrit 29.8 (L) 35.0 - 02/02/2021 [facility] 47.0 % 6:32 PM CDT MCV 85 78 - 100 02/02/2021 [facility] fL 6:32 PM CDT MCH 28.2 26.5 - 02/02/2021 [facility] 33.0 pg 6:32 PM CDT MCHC 33.2 31.5 - 02/02/2021 [facility] 36.5 g/dL 6:32 PM CDT RDW 13.1 10.0 - 02/02/2021 [facility] 15.0 % 6:32 PM CDT Platelet Count 333 150 - 450 02/02/2021 [facility] 10e3/uL 6:32 PM CDT % Neutrophils 74 % 02/02/2021 [facility] 6:32 PM CDT % Lymphocytes 22 % 02/02/2021 [facility] 6:32 PM CDT % Monocytes 3 % 02/02/2021 UR LABORATORY 6:32 PM CDT % Eosinophils 1 % 02/02/2021 UR LABORATORY 6:32 PM CDT % Basophils 0 % 02/02/2021 UR LABORATORY 6:32 PM CDT % Immature 0 % 02/02/2021 UR LABORATORY Granulocytes 6:32 PM CDT NRBCs per 100 0 <1 /100 02/02/2021 UR LABORATORY WBC 6:32 PM CDT Absolute 7.2 1.6 - 8.3 02/02/2021 UR LABORATORY Neutrophils 10e3/uL 6:32 PM CDT Absolute 2.1 0.8 - 5.3 02/02/2021 UR LABORATORY Lymphocytes 10e3/uL 6:32 PM CDT Absolute 0.3 0.0 - 1.3 02/02/2021 UR LABORATORY Monocytes 10e3/uL 6:32 PM CDT Absolute 0.1 0.0 - 0.7 02/02/2021 UR LABORATORY Eosinophils 10e3/uL 6:32 PM CDT Absolute 0.0 0.0 - 0.2 02/02/2021 UR LABORATORY Basophils 10e3/uL 6:32 PM CDT Absolute 0.0 <=0.0 02/02/2021 UR LABORATORY Immature 10e3/uL 6:32 PM CDT Granulocytes Absolute NRBCs 0.0 10e3/uL 02/02/2021 UR LABORATORY 6:32 PM CDT Specimen Anatomical Collection Method / Collection Time Recei melvi Time (Source) Location / Volume Laterality Blood STRUCTURE OF LEFT Venipuncture / 02/02/2021 6:09 02/02 6:27 UPPER LIMB / Unknown PM CDT PM CDT Unknown August Garner MD LAB - BLOOD ORDERABLES Performing Organization Address City/[facility]/ZIP Code Phon e Number UR LABORATORY [facility] [place] [id number] Care Lab [address] [place] [address], Room M309 Adult Type and Screen (02/02/2021 6:09 PM CDT) [facility] Method Time Signature ABO/RH(D) O POS 02/02/2021 UR BLOOD 5:30 PM CDT BANK Antibody Negative Negative 02/02/2021 UR BLOOD Screen 5:30 PM CDT BANK SPECIMEN [id number] 02/02/2021 UR BLOOD EXPIRATION 5:30 PM CDT BANK DATE Specimen Anatomical Collection Method / Collection Time Recei melvi Time (Source) Location / Volume Laterality Blood STRUCTURE OF LEFT Venipuncture / 02/02/2021 6:09 02/02 6:27 UPPER LIMB / Unknown PM CDT PM CDT Unknown August Garner MD LAB - BLOOD BANK TEST ORDER Performing Organization Address City/[facility]/ZIP Code Phon e Number UR BLOOD BANK [facility] [place] [place] [phone] Components Lab [address] [place] [address], Room M301 Treponema Abs w Reflex to RPR and Titer (02/02/2021 6:09 PM CDT) Patholo gist Method Time Signature Treponema Nonreactive Nonreactive 02/03/2021 [facility] Antibody 9:13 AM CDT SPECIALTY Total CORE Specimen Anatomical Collection Method / Collection Time Recei melvi Time (Source) Location / Volume Laterality Blood STRUCTURE OF LEFT Venipuncture / 02/02/2021 6:09 02/02 6:27 UPPER LIMB / Unknown PM CDT PM CDT Unknown August Garner MD LAB - BLOOD ORDERABLES Performing Organization Address City/State/ZIP Code Phon [place] [address] CORE/PROT/ENDO Core/Prot/Endo [address] [facility], Room 3-580 [facility] SPECIALTY CORE [facility] [place] Lab [phone], [facility] [address] [facility], Room L271-5 documented in this encounter Visit Diagnoses Diagnosis Bacterial vaginosis in - Prima ry labor in third trimester without delivery labor Early onset of delivery, unspecified as to episode of care documented in this encounter Admitting Diagnoses Diagnosis labor Early onset of delivery, unspecified as to episode of care documented in this encounter Administered Medications Inactive Administered Medications - up to 3 most recent administrations Medication Order MAR Action Action Date Dose Rate Site acetaminophen (TYLENOL) tablet 650 mg 650 mg, Oral, EVERY 4 HOURS PRN, mild pa in, fever, greater than or equal to 38?? C /100.4?? F (oral) or 38.5?? C/ 101.4?? F (core)., Starting on Sun02/02/21 at 1725, Maximum acetaminophen dose from all sources = 75 mg/kg /day not to exceed 4 grams/day., Intrapartum betamethasone acet & sod phos (CELESTONE) Given 02/03/2021 8:19 PM CDT 12 mg injection 12 mg 12 mg, Intramuscular, EVERY 24 HOURS, First dose on Sun02/02/21 at 2100, For 2 doses, Antepartum Given 02/02/2021 8:10 PM CDT 12 mg carboprost (HEMABATE) injection 250 mcg 250 mcg, Intramuscular, EVERY 15 MIN PRN , ONLY for uterine atony with significant bleeding POST-DELIVERY, Starting on Sun02/02/21 at 17 23, Notify provider IF uterine atony and clarify with provider medication preference. Administer only if directed by provider. Give with caution in patients with asthma, active pulmonary, hepatic, renal or cardiovascular disease., Intrapartum ibuprofen (ADVIL/MOTRIN) tablet 600 mg 600 mg, Oral, ONCE PRN, other, For mild to moderate pain., Starting on Sun02/02/21 at 1723, For 5 days, Give 30-60 minutes post procedure x 1 dose. Do not give within 6 hours of ketorolac dose. Give with food., ketorolac (TORADOL) injection 30 mg 30 mg, Intravenous, ONCE PRN, other, for mild to moder ate pain, Starting on Sun02/02/21 at 1723, For 5 days, Give immediately Postpar marisol x 1 dose. Any patient with renal function concerns should have a serum creatinine drawn and creatinine clearance calculated. If creatinine gypsy jaswant is 30-50 ml/min give 15 mg, if less than 30 ml/min do not administer ketorol ac. Can cause pain on injection. If ordered intravenously (IV) : administer through a running maintenance fluid over 1 minute followed by a flush. If patient complain s of pain on injection, may dilute 15-30 mg in 5 mL and push over 1 to 2 minutes. , ketorolac (TORADOL) injection 30 mg 30 mg, Intramuscular, ONCE PRN, other, f or mild to moderate pain, Starting on Sun02/02/21 at 1723, For 5 days, Give 30-60 minutes post procedure x 1 dose. Any patient with renal function concerns should have a ser um creatinine drawn and creatinine clearance calculated. If crea tinine clearance is 30-50 ml/min give 15 mg, if less than 30 ml/min do not administer ketorolac . Can cause pain on injection. If ordered intravenously (IV) : administer through a running maintenance fluid over 1 minute followed by a flush. If patient complains of pain on injection, may dilute 15-30 mg in 5 mL and push over 1 to 2 minut es. , lactated ringers BOLUS 1,000 mL Intravenous, 1,000 mL, ONCE PRN, IF patient to have ep idural or intrathecal narcotics and NOT pre-eclamptic, Startin g on Sun02/02/21 at 1723, For 1 dose, IV bolus must be initiated 15-30 min prior to epidural or intrathecal, then IV fluids per labor orders. Nurse may discontinue this order if duplicate., Intrapartum lactated ringers BOLUS 500 mL Intravenous, 500 mL, ONCE PRN, IF patien t to have epidural or intrathecal narcotics AND patient is pre-eclamptic. , Starting on Sun02/02/21 at 1723, For 1 dose, IV bolus must be initiated 15-30 min prior to epidural or intrathecal IF pre-eclamptic, then IV fluids per labor orders. Nurse may discontinue this order if duplicate., Intrapartum lactated ringers BOLUS 500 mL Intravenous, 500 mL, ONCE PRN, per polic y for intrauterine resuscitation or uterine tachysystole, Starting on Sun02/02/21 at 1725, For 1 dose, Intrapartum lactated ringers infusion at 25-125 mL/hr, Intravenous, CONTINUOUS , Intrapartum, Starting on Sun02/02/21 at 1730, Until Sun02/04/21 at 1353 lidocaine (LMX4) cream Topical, EVERY 1 HOUR PRN, pain, with VA D insertion, Starting on Sun02/02/21 at 1724, Apply at least 30 minutes prior to VAD insertion in divided doses as needed for size of site for insertion. MAX Dose: 2.5 g (?? of 5 g tube) Do NOT give if patient has a history of allergy to any local anesthetic or any ro product. Do NOT use both lidocaine intradermal/subcu taneous injection and the lidocaine cream on the same site., Intrapartum lidocaine 1 % 0.1-1 mL 0.1-1 mL, Other, EVERY 1 HOUR PRN, mild pain with VAD insertion, Starting on Sun02/02/21 at 1724, MAX dose 1 mL subcutan eous OR intradermal along the side of the vein in divided doses as needed for VAD insertion. Do NOT give if patient has a history of allergy to any local anesthet ic or any ro product. Do NOT use both lidocaine intradermal/subcutaneous injec tion and the lidocaine cream on the same site., Intrapartum lidocaine 1 % 0.1-20 mL 0.1-20 mL, Subcutaneous, ONCE PRN, episi otomy/laceration repair, Starting on Sun02/02/21 at 1723, For 1 dose, Available for provider a dministration after delivery., methylergonovine (METHERGINE) injection 200 mcg 200 mcg, Intramuscular, EVERY 2 HOURS ND N, ONLY for uterine atony with significant bleeding POST-DELIVERY, Starting on Sun02/02/21 at 17 23, Notify provider IF uterine atony and clarify with provider medication preference. Administer only if directed by provider. Contraindicated if Blood Pressur e greater than 140/90, preeclampsia, or hypertension., Intrapartum metoclopramide (REGLAN) injection 10 mg 10 mg, Intravenous, Administer over 2 Mi nutes, EVERY 6 HOURS PRN, nausea, vomiting, Starting on Sun02/02/21 at 1723, This is Step 1 of OB nausea and vomiting management. If nausea is not resolved in 30 minutes, go to Step 2 (Zofran). Avoid use if patient has full bowel obstructio n or perforation. Irritant., Intrapartum metoclopramide (REGLAN) tablet 10 mg 10 mg, Oral, EVERY 6 HOURS PRN, nausea a nd vomiting, Starting on Sun02/02/21 at 1723, This is Step 1 of OB nausea and vomiting managem ent. If nausea is not resolved in 30 minutes, go to Step 2 (Zo anselmo) Avoid use if patient has full bowel obstruction or perforation., Intrapartum metroNIDAZOLE (FLAGYL) tablet 500 mg Given 02/04/2021 8:04 AM CDT 500 mg Routine, 500 mg, Oral, 2 TIMES DAILY, First dose on Sun02/02/21 at 2000, Indications: BV Given 02/03/2021 8:17 PM CDT 500 mg Given 02/03/2021 7:56 AM CDT 500 mg misoprostol (CYTOTEC) tablet 400 mcg 400 mcg, Oral, GIVE ONCE PRN AND REPEAT ACCORDING TO I NSTRUCTIONS, post- hemorrhage, Starting on Sun02/02/21 at 1723, Administ er only if directed by provider. Max administrations: 4 doses, Intrapartum misoprostol (CYTOTEC) tablet 800 mcg 800 mcg, Rectal, GIVE ONCE PRN AND REPEA T ACCORDING TO INSTRUCTIONS, post- hemorrhage, Starting on Sun02/02/21 at 1723, Give rectally if unable to take oral without complications. Administer only if directed by provider. Max administrations: 4 doses., Intrapartum naloxone (NARCAN) injection 0.2 mg 0.2 mg, Intravenous, EVERY 2 MIN PRN, op ioid reversal, Starting on Sun02/02/21 at 1723, Administer intravenous route when available and notify [...] have not improved after 4 nalox one doses., Intrapartum naloxone (NARCAN) injection 0.2 mg 0.2 mg, Intramuscular, EVERY 2 MIN PRN, opioid reversal, Starting on Sun02/02/21 at 1723, Administer intramuscular if an intravenous ro shashank is not available and notify provider when administered. For unintended cherelle tion or respiratory depression if all of the below criteria are met: ~ respiratory rate LESS than or EQUAL to 8. ~SaO2 less than 92% and or/end-tidal CO2 i s greater than 50. ~ the patient is receiving an opioid, has unin tended sedations assessed as RASS (-3), and is currently not on mechanical ventilati on. RASS scale moderate (-3) is movement or [...] parameters have not improved after 4 naloxone doses., Intrapartum naloxone (NARCAN) injection 0.4 mg 0.4 mg, Intravenous, EVERY 2 MIN PRN, op ioid reversal, Starting on Sun02/02/21 at 1723, Administer intravenous route when available and notify [...] have not improved after 4 nalox one doses., Intrapartum naloxone (NARCAN) injection 0.4 mg 0.4 mg, Intramuscular, EVERY 2 MIN PRN, opioid reversal, Starting on Sun02/02/21 at 1723, Administer intramuscular if an intravenous ro shashank is not available and notify provider when administered. For unintended cherelle tion or respiratory depression if all of the below criteria are met: ~ respiratory rate LESS than or EQUAL to 8. ~ SaO2 less than 92% and or/end-tidal CO2 is greater than 50. ~ the patient is receiving an opioid, has unin tended sedation assessed as RASS (-4) or (-5) and patient is currently not on mechanical ventil ation. RASS scale (-4) is deep sedation with no response to voice but movement o r eye opening to physical stimulation. RASS scale [...] parameters have not improved after 4 naloxone doses., Intrapartum ondansetron (ZOFRAN) injection 4 mg 4 mg, Intravenous, EVERY 6 HOURS PRN, nausea, vomiting , Administer over 2-5 Minutes, Starting on Sun02/02/21 at 172 3, This is Step 2 of OB nausea and vomiting management. Give if nausea not resolved 30 minutes aft er giving metoclopramide (REGLAN). If nausea is not resolved in 15 minutes, go to Step 3 (Compazine). Irritant., Intrapartum ondansetron (ZOFRAN-ODT) ODT tab 4 mg 4 mg, Oral, EVERY 6 HOURS PRN, nausea, v omiting, Starting on Sun02/02/21 at 1723, This is Step 2 of OB nausea [...] swallow with saliva. Liquid not required ., Intrapartum oxytocin (PITOCIN) 30 units in 500 mL 0. 9% NaCl infusion 100-340 mL/hr, Intravenous, CONTINUOUS PRN, After deli very to prevent uterine atony, Starting on Sun02/02/21 at 1723, Give after de livery to prevent uterine atony per provider direction. Administer 340 mL/hr over 30 minutes for a total of 170 mL, then decrease to 100 mL/hr until infusion complete (about 3.5 hours) or per provider direction. Start new bag at delivery. Discont inue or saline lock peripheral IV per nurse discretion., oxytocin (PITOCIN) 30 units in 500 mL 0. 9% NaCl infusion 340 mL/hr, Intravenous, CONTINUOUS PRN, for hemorrhage (PPH) UNTIL bleeding subsided., Starting on Sun02/02/21 at 1723, When bleeding subsides decrease rate to 100 mL/hr. Notify provider immediatel y when infusion begun. Oxytocin is first line medication for PPH., Intrapartu m oxytocin (PITOCIN) injection 10 Units 10 Units, Intramuscular, ONCE PRN, Give after delivery to prevent uterine atony., Starting on Sun02/02/21 at 1723, For 1 dose, Give aft er delivery to prevent uterine atony if no IV access is available per provide r direction., oxytocin (PITOCIN) injection 10 Units 10 Units, Intramuscular, ONCE PRN, for p ostpartum hemorrhage (PPH), IF no IV access is available., Starting on Sun02/02/21 at 1723, For 1 dose, Notify provider immediately when injection given. Oxytocin is first li ne medication for PPH., Intrapartum penicillin G potassium 5 million New Bag 02/02/2021 7:46 PM CD T 5 Million Units units vial to attach to NS 100 mL bag STAT, 5 Million Units, Intravenous, ONCE, On Sun02/02/21 at 1730, For 1 dose, Loading Dose. Active upon active labor status., Indications: Group B Strep, Intrapartum penicillin G potassium in New Bag 02/03/2021 9:45 AM CDT 3 Mil lion Units 100 mL/hr dextrose intermittent infusion 3 Million Units Routine, 3 Million Units, Intravenous, EVERY 4 HOURS, First dose on Sun02/02/21 at 2130, To be given until delivery., Indications: Group B Strep, Intrapartum New Bag 02/03/2021 4:22 AM CDT 3 Million Units 100 mL/hr New Bag 02/03/2021 12:15 AM CDT 3 Million Units 100 mL/hr prochlorperazine (COMPAZINE) injection 1 0 mg 10 mg, Intravenous, EVERY 6 HOURS PRN, n ausea, vomiting, Administer over 2 Minutes, Starting on Sun02/02/21 at 1723, This is Step 3 of OB nausea and vomiting management. Give if nausea not resolved 15 minutes aft er giving ondansetron (ZOFRAN). If nausea is not resolved in 3 0 minutes, notify provider., Intrapartum prochlorperazine (COMPAZINE) suppository 25 mg 25 mg, Rectal, EVERY 12 HOURS PRN, nause a, vomiting, Starting on Sun02/02/21 at 1723, This is Step 3 of OB nausea and vomiting managem ent. Give if nausea not resolved 15 minutes after giving ondanse hemant (ZOFRAN). If nausea is not resolved in 30 minutes, notify provider., Intrapartum prochlorperazine (COMPAZINE) tablet 10 m g 10 mg, Oral, EVERY 6 HOURS PRN, nausea, vomiting, Starting on Sun02/02/21 at 1723, This is Step 3 of OB nausea and vomiting management. Give if nausea not resolved 15 minutes after giving ondansetron (ZOFRAN ). If nausea is not resolved in 30 minutes, notify provider., Intrapartum sodium chloride (PF) 0.9% PF flush 3 mL Given 02/04/2021 1:30 AM CDT 3 mLs 3 mL, Intracatheter, EVERY 8 HOURS, First dose on Sun02/02/21 at 1730, to lock peripheral IV dormant line, Intrapartum Given 02/03/2021 5:46 PM CDT 3 mLs Given 02/03/2021 10:52 AM CDT 3 mLs sodium chloride (PF) 0.9% PF flush 3 mL 3 mL, Intracatheter, EVERY 1 MIN PRN, li ne flush, other, to ensure patency or to lock dormant line, Starting on Sun02/02/21 at 1724, I ntrapartum tranexamic acid 1 g in 100 mL 0.7% NaCl IV bag (premix) 1 g, Intravenous, Administer over 10 Minutes, EVERY 30 MIN PRN, Post- hemorrhage (PPH), Starting on Sun02/02/21 at 1723, Fo r 2 doses, Provider consultation REQUIRED and MUST be admini stered as soon as the ONSET of bleeding AND within 3 hours of regardless of ca use of the PPH (atony OR laceration). IF bleeding continues, a 2nd dose may be ad ministered after 30 minutes. IF concern for DIC (Disseminated Intravascular Coagulat ion), obtain coagulation studies PRIOR to administration. Contraindications includ e: history of PE (Pulmonary Emboli), DVT (Deep Vein Thrombosis) and current Subarachnoid hemorr jeri and active DIC. Administer only if directed by provider., Intrapartum valACYclovir (VALTREX) tablet 500 mg Given 02/04/2021 8:04 AM CDT 500 mg Routine, 500 mg, Oral, EVERY 12 HOURS SCHEDULED, First dose on Sun02/02/21 at 2000, Do NOT Crush., Indications: Prophylaxis of Herpes Simplex Given 02/03/2021 8:18 PM CDT 500 mg Given 02/03/2021 7:56 AM CDT 500 mg documented in this encounter Active and Recently Administered Medications Times are shown in CDT. Scheduled Medication Order 02/02/2021 02/03/2021 02/04/2021 betamethasone acet & sod phos (CELESTONE) injection 12 mg (COMPLETED) 2009 (Given - Provider: Lu Toro, RN) 2018 (Given - Provider: Mariluz Price, ROSA) 12 mg, Intramuscular, EVERY 24 HOURS, Fi rst dose on Sun02/02/21 at 2100, For 2 doses, Antepartum metroNIDAZOLE (FLAGYL) tablet 500 mg 1947 (Given - Provider: Lu Toro, RN) 075 (Given - Provider: Leda Benitez, RN)2016 (Given - Provider: Mariluz Price, ROSA) 0804 (Given - Provider: Juliocesar Calderon RN) Routine, 500 mg, Oral, 2 TIMES DAILY, Fi rst dose on Sun02/02/21 at 2000, Indications: BV penicillin G potassium 5 million units v ial to attach to NS 100 mL bag (COMPLETED) 1945 (New Bag - Provider: Lu Toro RN) STAT, 5 Million Units, Intravenous, ONCE , On Sun02/02/21 at 1730, For 1 dose, Loading Dose. Active upon active labor status., Indications: Group B Strep, Intrapartum penicillin G potassium in dextrose inter mittent infusion 3 Million Units (CANCELED) 0015 (New Bag - Provider: Genaro Molina RN)0037 (Hold - Provider: Rina Molina RN - Reason: Other - Comment: see order given)0422 (New Bag - Provider: Rina Molina RN)0945 (New Bag - Provider: Leda Benitez, ROSA) Routine, 3 Million Units, Intravenous, E VERY 4 HOURS, First dose on Sun02/02/21 at 2130, To be given until delivery., Indications: Group B Strep, Intrapartum 1956 (Not Given - Provider: Mariluz Price RN - Reason: Med discontinued by Provider) sodium chloride (PF) 0.9% PF flush 3 mL 2046 (Given - Provider: Lu Toro RN) 0034 (Not Given - Provider: Rina Molina RN - Reason: IV Infusing)1052 (Given - Provider: Leda Benitez, RN)1746 (Given - Provider: Mariluz Price, ROSA) 0130 (Given - Provider: Cheri Blood RN)0930 (Canceled Entry - Provider: Orders Generic Provider - Comment: Automatically canceled at discontinue of medication order) 3 mL, Intracatheter, EVERY 8 HOURS, Firs t dose on Sun02/02/21 at 1730, to lock peripheral IV dormant line, Intrapartum valACYclovir (VALTREX) tablet 500 mg 1947 (Given - Provider: Lu Toro, ROSA) 0756 (Given - Provider: Leda Benitez, RN)2017 (Given - Provider: Mariluz Price, ROSA) 0804 (Given - Provider: Juliocesar Calderon RN) Routine, 500 mg, Oral, EVERY 12 HOURS SC HEDULED, First dose on Sun02/02/21 at 2000, Do NOT Crush., Indications: Prophylaxis of Herpes Simplex Continuous Medication Order 02/02/2021 02/03/2021 02/04/2021 lactated ringers infusion 1957 (Hold - Provider: Lu Toro RN - Reason: Other) at 25-125 mL/hr, Intravenous, CONTINUOUS , Intrapartum, Starting on Sun02/02/21 at 1730, Until Sun02/04/21 at 1353 PRN Medication Order 02/02/2021 02/03/2021 02/04/2021 acetaminophen (TYLENOL) tablet 650 mg 650 mg, Oral, EVERY 4 HOURS PRN, mild pa in, fever, greater than or equal to 38?? C /100.4?? F (oral) or 38.5?? C/ 101.4?? F (core)., Starting on Sun02/02/21 at 1725, Maximum acetaminophen dose from all sources = 75 mg/kg/day not to exceed 4 grams/day., Intrapartum carboprost (HEMABATE) injection 250 mcg 250 mcg, Intramuscular, EVERY 15 MIN PRN , ONLY for uterine atony with significant bleeding POST-DELIVERY, Starting on Sun02/02/21 at 1723, Notify provider IF uterine atony and clarify with provider med ication preference. Administer only if d irected by provider. Give with caution in patients with asthma, active pulmonary, hepatic, renal or cardiovascular disease., Intrapartum ibuprofen (ADVIL/MOTRIN) tablet 600 mg(Linked Group 1) 600 mg, Oral, ONCE PRN, other, For mild to moderate pain., Starting on Sun02/02/21 at 1723, For 5 days, Give 30-60 minutes post procedure x 1 dose. Do not give within 6 hours of ketorolac dose. Give with food., ketorolac (TORADOL) injection 30 mg(Linked Group 1) 30 mg, Intravenous, ONCE PRN, other, for mild to moderate pain, Starting on Sun02/02/21 at 1723, For 5 days, Give immediately x 1 dose. Any patient with renal function concerns should have a serum creatinine drawn and creatinine c learance calculated. If creatinine clearance is 30-50 ml/min give 15 mg, if less than 30 ml/min do not administer ketorolac. Can cause pain on injection. If order ed intravenously (IV) : administer throu gh a running maintenance fluid over 1 minute followed by a flush. If patient complains of pain on injection, may dilute 15-30 mg in 5 mL and push over 1 to 2 minutes. , ketorolac (TORADOL) injection 30 mg(Linked Group 1) 30 mg, Intramuscular, ONCE PRN, other, f or mild to moderate pain, Starting on Sun02/02/21 at 1723, For 5 days, Give 30-60 minutes post procedure x 1 dose. Any patient with renal function concerns shoul d have a serum creatinine drawn and crea tinine clearance calculated. If creatinine clearance is 30-50 ml/min give 15 mg, if less than 30 ml/min do not administer ketorolac. Can cause pain on injection. If ordered intravenously (IV) : administ er through a running maintenance fluid over 1 minute followed by a flush. If patient complains of pain on injection, may dilute 15-30 mg in 5 mL and push over 1 to 2 minutes. , lactated ringers BOLUS 1,000 mL(Linked Group 2) Intravenous, 1,000 mL, ONCE PRN, IF arjun ent to have epidural or intrathecal narcotics and NOT pre-eclamptic, Starting on Sun02/02/21 at 1723, For 1 dose, IV bolus must be initiated 15-30 min prior to e pidural or intrathecal, then IV fluids p er labor orders. Nurse may discontinue this order if duplicate., Intrapartum lactated ringers BOLUS 500 mL(Linked Group 2) Intravenous, 500 mL, ONCE PRN, IF patien t to have epidural or intrathecal narcotics AND patient is pre-eclamptic. , Starting on Sun02/02/21 at 1723, For 1 dose, IV bolus must be initiated 15-30 min suni or to epidural or intrathecal IF pre-ecl amptic, then IV fluids per labor orders. Nurse may discontinue this order if duplicate., Intrapartum lactated ringers BOLUS 500 mL Intravenous, 500 mL, ONCE PRN, per polic y for intrauterine resuscitation or uterine tachysystole, Starting on Sun02/02/21 at 1725, For 1 dose, Intrapartum lidocaine (LMX4) cream Topical, EVERY 1 HOUR PRN, pain, with VA D insertion, Starting on Sun02/02/21 at 1724, Apply at least 30 minutes prior to VAD insertion in divided doses as needed for size of site for insertion. MAX Dos e: 2.5 g (?? of 5 g tube) Do NOT give if patient has a history of allergy to any local anesthetic or any ro product. Do NOT use both lidocaine intradermal/subcutaneous injection and the lidocaine cream on the same site., Intrapartum lidocaine 1 % 0.1-1 mL 0.1-1 mL, Other, EVERY 1 HOUR PRN, mild pain with VAD insertion, Starting on Sun02/02/21 at 1724, MAX dose 1 mL subcutaneous OR intradermal along the side of the vein in divided doses as needed for VAD insertion. Do NOT give if patient has a history of allergy to any local anesthetic or any ro product. Do NOT use both lidocaine intradermal/subcutaneous injection and the lidocaine cream on the same site., Intrapartum lidocaine 1 % 0.1-20 mL 0.1-20 mL, Subcutaneous, ONCE PRN, episi otomy/laceration repair, Starting on Sun02/02/21 at 1723, For 1 dose, Available for provider administration after delivery., methylergonovine (METHERGINE) injection 200 mcg 200 mcg, Intramuscular, EVERY 2 HOURS ND N, ONLY for uterine atony with significant bleeding POST-DELIVERY, Starting on Sun02/02/21 at 1723, Notify provider IF uterine atony and clarify with provider me dication preference. Administer only if directed by provider. Contraindicated if Blood Pressure greater than 140/90, preeclampsia, or hypertension., Intrapartum metoclopramide (REGLAN) injection 10 mg(Linked Group 3) 10 mg, Intravenous, Administer over 2 Mi nutes, EVERY 6 HOURS PRN, nausea, vomiting, Starting on Sun02/02/21 at 1723, This is Step 1 of OB nausea and vomiting management. If nausea is not resolved in 30 minutes, go to Step 2 (Zofran). Avoid u se if patient has full bowel obstruction or perforation. Irritant., Intrapartum metoclopramide (REGLAN) tablet 10 mg(Linked Group 3) 10 mg, Oral, EVERY 6 HOURS PRN, nausea a nd vomiting, Starting on Sun02/02/21 at 1723, This is Step 1 of OB nausea and vomiting management. If nausea is not resolved in 30 minutes, go to Step 2 (Zofran) Avoid use if patient has full bowel obstruction or perforation. , Intrapartum misoprostol (CYTOTEC) tablet 400 mcg(Linked Group 4) 400 mcg, Oral, GIVE ONCE PRN AND REPEAT ACCORDING TO INSTRUCTIONS, post- hemorrhage, Starting on Sun02/02/21 at 1723, Administer only if directed by provider. Max administrations: 4 doses, Intrapartum misoprostol (CYTOTEC) tablet 800 mcg(Linked Group 4) 800 mcg, Rectal, GIVE ONCE PRN AND REPEA T ACCORDING TO INSTRUCTIONS, post- hemorrhage, Starting on Sun02/02/21 at 1723, Give rectally if unable to take oral without complications. Administer only if directed by provider. Max administrations: 4 doses., Intrapa rtum naloxone (NARCAN) injection 0.2 mg(Linked Group 5) 0.2 mg, Intravenous, EVERY 2 MIN PRN, op ioid reversal, Starting on Sun02/02/21 at 1723, Administer intravenous route when available and notify provider when administered. For unintended sedation or res piratory depression if all of the below criteria are met: ~ respiratory rate LESS than or EQUAL to 8. ~SaO2 less than 92% and or/end-tidal CO2 is greater than 50. ~ the patient is receiving an opioid, h as unintended sedations assessed as RASS (-3), and is currently not on mechanical ventilation. RASS scale moderate (-3) is movement or eye opening to voice but no eye contact. Patient Monitoring Once th e patient has demonstrated a response to the naloxone, continue to monitor respiratory rate, depth, oxygen saturation and end-tidal CO2 (if available) every 15 minutes x 2, then every 30 minutes x 2, th en every 1 hour x 1 after each naloxone dose. Consider transfer to ICU if patient respiratory parameters have not improved after 4 naloxone doses., Intrapartum naloxone (NARCAN) injection 0.2 mg(Linked Group 5) 0.2 mg, Intramuscular, EVERY 2 MIN PRN, opioid reversal, Starting on Sun02/02/21 at 1723, Administer intramuscular if an intravenous route is not available and notify provider when administered. For un intended sedation or respiratory depress ion if all of the below criteria are met: ~ respiratory rate LESS than or EQUAL to 8. ~SaO2 less than 92% and or/end- tidal CO2 is greater than 50. ~ the patient i s receiving an opioid, has unintended se dations assessed as RASS (-3), and is currently not on mechanical ventilation. RASS scale moderate (-3) is movement or eye opening to voice but no eye contact. Pa tient Monitoring Once the patient has de monstrated a response to the naloxone, continue to monitor respiratory rate, depth, oxygen saturation and end-tidal CO2 (if available) every 15 minutes x 2, then every 30 minutes x 2, then every 1 hour x 1 after each naloxone dose. Consider transfer to ICU if patient respiratory parameters have not improved after 4 naloxone doses., Intrapartum naloxone (NARCAN) injection 0.4 mg(Linked Group 5) 0.4 mg, Intravenous, EVERY 2 MIN PRN, op ioid reversal, Starting on Sun02/02/21 at 1723, Administer intravenous route when available and notify provider when administered. For unintended sedation or res piratory depression if all of the below criteria [...] voice but movement or eye opening to ph ysical stimulation. RASS scale (-5) is u narousable. Patient Monitoring Once the patient has demonstrated a response to the naloxone, continue to monitor respiratory rate, depth, oxygen saturation and en d-tidal CO2 (if available) every 15 liborio richar x 2, then every 30 minutes x 2, then every 1 hour x 1 after each naloxone dose. Consider transfer to ICU if patient respiratory parameters have not improved after 4 naloxone doses., Intrapartum naloxone (NARCAN) injection 0.4 mg(Linked Group 5) 0.4 mg, Intramuscular, EVERY 2 MIN PRN, opioid reversal, Starting on Sun02/02/21 at 1723, Administer intramuscular if an intravenous route is not available and notify provider when administered. For un intended sedation or respiratory depress ion if all of the below criteria are met: ~ respiratory rate LESS than or EQUAL to 8. ~ SaO2 less than 92% and or/end-tidal CO2 is greater than 50. ~ the patient is receiving an opioid, has unintended s edation assessed as RASS (-4) or (-5) and patient is currently not on mechanical ventilation. RASS scale (-4) is deep sedation with no response to voice but movem ent or eye opening to physical stimulati on. RASS scale (-5) is unarousable. Patient Monitoring Once the patient has demonstrated a response to the naloxone, continue to monitor respiratory rate, depth, oxygen saturation and end-tidal CO2 (if available) every 15 minutes x 2, then every 30 minutes x 2, then every 1 hour x 1 after each naloxone dose. Consider transfer to ICU if patient respiratory parame ters have not improved after 4 naloxone doses., Intrapartum ondansetron (ZOFRAN) injection 4 mg(Linked Group 6) 4 mg, Intravenous, EVERY 6 HOURS PRN, na usea, vomiting, Administer over 2-5 Minutes, Starting on Sun02/02/21 at 1723, This is Step 2 of OB nausea and vomiting management. Give if nausea not resolved 30 minutes after giving metoclopramide (RE GLAN). If nausea is not resolved in 15 minutes, go to Step 3 (Compazine). Irritant., Intrapartum ondansetron (ZOFRAN-ODT) ODT tab 4 mg(Linked Group 6) 4 mg, Oral, EVERY 6 HOURS PRN, nausea, v omiting, Starting on Sun02/02/21 at 1723, This is Step 2 of OB nausea and vomiting management. Give If nausea not resolved in 30 minutes after giving metoclopram claire (REGLAN). If nausea is not resolved in 15 minutes, go to Step 3 (Compazine). With dry hands, peel back foil backing and gently remove tablet. Do not push oral disintegrating tablet through foil back ing. Administer immediately on tongue an d oral disintegrating tablet dissolves in seconds, then swallow with saliva. Liquid not required., Intrapartum oxytocin (PITOCIN) 30 units in 500 mL 0.9% NaCl infusion 100-340 mL/hr, at 100-340 mL/hr, Intrave nous, CONTINUOUS PRN, After delivery to prevent uterine atony, Starting on Sun02/02/21 at 1723, Give after delivery to prevent uterine atony per provider directi on. Administer 340 mL/hr over 30 minutes for a total of 170 mL, then decrease to 100 mL/hr until infusion complete (about 3.5 hours) or per provider direction. Start new bag at delivery. Discontinue or saline lock peripheral IV per nurse discretion., oxytocin (PITOCIN) 30 units in 500 mL 0.9% NaCl infusion 340 mL/hr, at 340 mL/hr, Intravenous, CO NTINUOUS PRN, for hemorrhage (PPH) UNTIL bleeding subsided., Starting on Sun02/02/21 at 1723, When bleeding subsides decrease rate to 100 mL/hr. Notif y provider immediately when infusion beg un. Oxytocin is first line medication for PPH., Intrapartum oxytocin (PITOCIN) injection 10 Units 10 Units, Intramuscular, ONCE PRN, Give after delivery to prevent uterine atony., Starting on Sun02/02/21 at 1723, For 1 dose, Give after delivery to prevent uterine atony if no IV access is available per provider direction., oxytocin (PITOCIN) injection 10 Units 10 Units, Intramuscular, ONCE PRN, for p ostpartum hemorrhage (PPH), IF no IV access is available., Starting on Sun02/02/21 at 1723, For 1 dose, Notify provider immediately when injection given. Oxytocin is first line medication for PPH., Intrapartum prochlorperazine (COMPAZINE) injection 10 mg(Linked Group 7) 10 mg, Intravenous, EVERY 6 HOURS PRN, n ausea, vomiting, Administer over 2 Minutes, Starting on Sun02/02/21 at 1723, This is Step 3 of OB nausea and vomiting management. Give if nausea not resolved 15 minutes after giving ondansetron (ZOFRAN ). If nausea is not resolved in 30 minutes, notify provider., Intrapartum prochlorperazine (COMPAZINE) suppository 25 mg(Linked Group 7) 25 mg, Rectal, EVERY 12 HOURS PRN, nause a, vomiting, Starting on Sun02/02/21 at 1723, This is Step 3 of OB nausea and vomiting management. Give if nausea not resolved 15 minutes after giving ondansetro n (ZOFRAN). If nausea is not resolved in 30 minutes, notify provider., Intrapartum prochlorperazine (COMPAZINE) tablet 10 mg(Linked Group 7) 10 mg, Oral, EVERY 6 HOURS PRN, nausea, vomiting, Starting on Sun02/02/21 at 1723, This is Step 3 of OB nausea and vomiting management. Give if nausea not resolved 15 minutes after giving ondansetron ( ZOFRAN). If nausea is not resolved in 30 minutes, noti fy provider., Intrapartum sodium chloride (PF) 0.9% PF flush 3 mL 3 mL, Intracatheter, EVERY 1 MIN PRN, li ne flush, other, to ensure patency or to lock dormant line, Starting on Sun02/02/21 at 1724, Intrapartum tranexamic acid 1 g in 100 mL 0.7% NaCl IV bag (premix) 1 g, Intravenous, Administer over 10 Min utes, EVERY 30 MIN PRN, Post- hemorrhage (PPH), Starting on Sun02/02/21 at 1723, For 2 doses, Provider consultation REQUIRED and MUST be administered as so on as the ONSET of bleeding AND within 3 hours of regardless of cause of the PPH (atony OR laceration). IF bleeding continues, a 2nd dose may be administered after 30 minutes. IF concern for DIC ( Disseminated Intravascular Coagulation), obtain coagulation studies PRIOR to administration. Contraindications include: history of PE (Pulmonary Emboli), DVT (Deep Vein Thrombosis) and current Subarachn oid hemorrhage and active DIC. Administe r only if directed by provider., Intrapartum Linked Groups Order Group 1: ketorolac (TORADOL) injection 30 mgJump to med 30 mg, Intravenous, ONCE PRN, other, for mild to moderate pain, Starting on Sun02/02/21 at 1723, For 5 days
Give immediately x 1 dose. Any patient with renal function jeremy rns should have a serum creatinine drawn and creatinine clearance calculated. If creatinine clearance is 30-50 ml/min give 15 mg, if less than 30 ml/min do not administer ketorolac. Can cause p ain on injection. If ordered intravenous ly (IV) : administer through a running maintenance fluid over 1 minute followed by a flush. If patient complains of pain on injection, may dilute 15-30 mg in 5 mL and push over 1 to 2 minutes.
Or ketorolac (TORADOL) injection 30 mgJump to med 30 mg, Intramuscular, ONCE PRN, other, f or mild to moderate pain, Starting on Sun02/02/21 at 1723, For 5 days
Give 30-60 minutes post procedure x 1 dose. Any patient with renal functi on concerns should have a serum creatini ne drawn and creatinine clearance calculated. If creatinine clearance is 30-50 ml/min give 15 mg, if less than 30 ml/min do not administer ketorolac. Can cause pain on injection. If ordered int ravenously (IV) : administer through a running maintenance fluid over 1 minute followed by a flush. If patient complains of pain on injection, may dilute 15-30 mg in 5 mL and push over 1 to 2 minutes. < br> Or ibuprofen (ADVIL/MOTRIN) tablet 600 mgJump to med 600 mg, Oral, ONCE PRN, other, For mild to moderate pain., Starting on Sun02/02/21 at 1723, For 5 days
Give 30-60 minutes post procedure x 1 dose. Do not give within 6 hours of ketorolac dose. Give with food.
Group 2: lactated ringers BOLUS 1,000 mLJump to med Intravenous, 1,000 mL, ONCE PRN, IF arjun ent to have epidural or intrathecal narcotics and NOT pre-eclamptic, Starting on Sun02/02/21 at 1723, For 1 dose
IV bolus must be initiated 15-30 min pr ior to epidural or intrathecal, then IV fluids per labor orders. Nurse may discontinue this order if duplicate.
Intrapartum Or lactated ringers BOLUS 500 mLJump to med Intravenous, 500 mL, ONCE PRN, IF patien t to have epidural or intrathecal narcotics AND patient is pre-eclamptic. , Starting on Sun02/02/21 at 1723, For 1 dose
IV bolus must be initiated 15-30 min prior to epidural or intrathecal IF pre-eclamptic, then IV fluids per labor orders. Nurse may discontinue this order if duplicate.
Intrapartum Group 3: metoclopramide (REGLAN) injection 10 mgJump to med 10 mg, Intravenous, Administer over 2 Mi nutes, EVERY 6 HOURS PRN, nausea, vomiting, Starting on Sun02/02/21 at 1723
This is Step 1 of OB nausea and vomiting management. If n ausea is not resolved in 30 minutes, go to Step 2 (Zofran). Avoid use if patient has full bowel obstruction or perforation. Irritant.
Intrapartum Or metoclopramide (REGLAN) tablet 10 mgJump to med 10 mg, Oral, EVERY 6 HOURS PRN, nausea a nd vomiting, Starting on Sun02/02/21 at 1723
This is Step 1 of OB nausea and vomiting management. If nausea is not resolved in 30 min utes, go to Step 2 (Zofran) Avoid u se if patient has full bowel obstruction or perforation.
Intrapartum Group 4: misoprostol (CYTOTEC) tablet 400 mcgJump to med 400 mcg, Oral, GIVE ONCE PRN AND REPEAT ACCORDING TO INSTRUCTIONS, post- hemorrhage, Starting on Sun02/02/21 at 1723
Administer only if directed by provider. Max administrations: 4 doses
Intrapartum Or misoprostol (CYTOTEC) tablet 800 mcgJump to med 800 mcg, Rectal, GIVE ONCE PRN AND REPEA T ACCORDING TO INSTRUCTIONS, post- hemorrhage, Starting on Sun02/02/21 at 1723
Give rectally if unable to take oral without complications. Adminis ter only if directed by provider. Max ad ministrations: 4 doses.
Intrapartum Group 5: naloxone (NARCAN) injection 0.2 mgJump to med 0.2 mg, Intravenous, EVERY 2 MIN PRN, op ioid reversal, Starting on Sun02/02/21 at 1723
Administer intravenous route when available and notify provider when administered. For unintende d sedation or respiratory depression if all of the below criteria are met: ~ respiratory rate LESS than or EQUAL to 8. ~SaO2 less than 92% and or/end-tidal CO2 is greater than 50.&amp ;nbsp;~ the patient is receiving an opio id, has unintended sedations assessed as RASS (-3), and is currently not on mechanical ventilation. RASS scale moderate (-3) is movement or eye opening to voice but no eye contact.&nb sp; Patient Monitoring Once the patient has demonstrated a response to the naloxone, continue to monitor respiratory rate, depth, oxygen sat uration and end-tidal CO2 (if available) every 15 minutes x 2, then every 30 minutes x 2, then every 1 hour x 1 after each naloxone dose. Consider transfer to ICU if patient respirato ry parameters have not improved after 4 naloxone doses.
Intrapartum Or naloxone (NARCAN) injection 0.4 mgJump to med 0.4 mg, Intravenous, EVERY 2 MIN PRN, op ioid reversal, Starting on Sun02/02/21 at 1723
Administer intravenous route when available and notify provider when administered. For unintende d sedation or respiratory depression if all of the below criteria are met: ~ respiratory rate LESS than or EQUAL to 8. ~ SaO2 less than 92% and or/end-tidal CO2 is greater than 50.&amp ;nbsp;~ the patient is receiving an opio id, has unintended sedation assessed as RASS (-4) or (-5) and patient is currently not on mechanical ventilation. RASS scale (-4) is deep sedat ion with no response to voice but moveme nt or eye opening to physical stimulation. RASS scale (-5) is unarousable. Patient Monitoring O nce the patient has demonstrated a respo nse to the naloxone, continue to monitor respiratory rate, depth, oxygen saturation and end-tidal CO2 (if available) every 15 minutes x 2, then every 30 minutes x 2, then every 1 hour x 1 after each nal oxone dose. Consider transfer to ICU if patient respiratory parameters have not improved after 4 naloxone doses.
Intrapartum Or naloxone (NARCAN) injection 0.2 mgJump to med 0.2 mg, Intramuscular, EVERY 2 MIN PRN, opioid reversal, Starting on Sun02/02/21 at 1723
Administer intramuscular if an intravenous route is not available and notify provider when administered . For unintended sedation or respir atory depression if all of the below criteria are met: ~ respiratory rate LESS than or EQUAL to 8. ~SaO2 less than 92% and or/end-tidal CO2 is greater than 50. ~ the patient is receiving an opioid, has unintended sedations assessed as RASS (-3), and is currently not on mechanical ventilation. RASS scale moderate (-3) is movement or eye opening to voic e but no eye contact. Patient Monitoring Once the patient has demonstrated a response to the naloxone, continue to monitor respiratory rate, depth, oxygen saturation and end- tidal CO2 (if available) every 15 minutes x 2, then every 30 minutes x 2, then every 1 hour x 1 after each naloxone dose. Consider transfer to ICU if patient respiratory parameters hinojosa ve not improved after 4 naloxone doses.
Intrapartum Or naloxone (NARCAN) injection 0.4 mgJump to med 0.4 mg, Intramuscular, EVERY 2 MIN PRN, opioid reversal, Starting on Sun02/02/21 at 1723
Administer intramuscular if an intravenous route is not available and notify provider when administered . For unintended sedation or respir atory depression if all of the below criteria are met: ~ respiratory rate LESS than or EQUAL to 8. ~ SaO2 less than 92% and or/end-tidal CO2 is greater than 50. ~ the patient is receiving an opioid, has unintended sedation assessed as RASS (-4) or (-5) and patient is currently not on mechanical ventilation. RASS scale (-4) is deep sedation with no resp onse to voice but movement or eye opening to physical stimulation. RASS scale (-5) is unarousable. Patie nt Monitoring Once the patient has demonstrated a response to the naloxone, continue to monitor respiratory rate, depth, oxygen saturation and end-tidal CO2 (if available) every 15 minutes x 2, then every 30 minutes x 2, then every 1 hour x 1 after each naloxone dose. Consider transfer to ICU if patient respiratory parameters have not improved after 4 naloxone doses.
Intrapartum Group 6: ondansetron (ZOFRAN-ODT) ODT tab 4 mgJump to med 4 mg, Oral, EVERY 6 HOURS PRN, nausea, v omiting, Starting on Sun02/02/21 at 1723
This is Step 2 of OB nausea and vomiting management. Give If nausea not resolved in 30 minut es after giving metoclopramide (REGLAN). If nausea is not resolved in 15 minutes, go to Step 3 (Compazine). With dry hands, peel back foil backing and gently remove tablet. D o not push oral disintegrating tablet th rough foil backing. Administer immediately on tongue and oral disintegrating tablet dissolves in seconds, then swallow with saliva. Liquid not required.
Intrapartum Or ondansetron (ZOFRAN) injection 4 mgJump to med 4 mg, Intravenous, EVERY 6 HOURS PRN, na usea, vomiting, Administer over 2-5 Minutes, Starting on Sun02/02/21 at 1723
This is Step 2 of OB nausea and vomiting management. Giv e if nausea not resolved 30 minutes afte r giving metoclopramide (REGLAN). If nausea is not resolved in 15 minutes, go to Step 3 (Compazine). Irritant.
Intrapartum Group 7: prochlorperazine (COMPAZINE) injection 10 mgJump to med 10 mg, Intravenous, EVERY 6 HOURS PRN, n ausea, vomiting, Administer over 2 Minutes, Starting on Sun02/02/21 at 1723
This is Step 3 of OB nausea and vomiting management. Give if nausea not reso lved 15 minutes after giving ondansetron (ZOFRAN). If nausea is not resolved in 30 minutes, notify provider.
Intrapartum Or prochlorperazine (COMPAZINE) tablet 10 mgJump to med 10 mg, Oral, EVERY 6 HOURS PRN, nausea, vomiting, Starting on Sun02/02/21 at 1723
This is Step 3 of OB nausea and vomiting management. Give if nausea not resolved 15 minutes after giving ondan setron (ZOFRAN). If nausea is not resolv ed in 30 minutes, notify provider.
Intrapartum Or prochlorperazine (COMPAZINE) suppository 25 mgJump to med 25 mg, Rectal, EVERY 12 HOURS PRN, nause a, vomiting, Starting on Sun02/02/21 at 1723
This is Step 3 of OB nausea and vomiting management. Give if nausea not resolved 15 minutes after giving on dansetron (ZOFRAN). If nausea is not res olved in 30 minutes, notify provider.
Intrapartum documented in this encounter Care Teams Sta[employer] Relationship Specialty Start Date End Date No Ref-Primary, Physician PCP - General 02/02/21 documented as of this encounter
--- OUTSIDE RECORDS SUMMARY | 2021-12-29 14:27 | XMS_ITS | Encounter Summary ---
:1985 Author Organization [place] Address Formerly [facility] [place] [address] Care Team Providers Name Role Phone No Ref-Primary, Physician Primary Care Provider [phone] Reason for Referral Diagnostic Imaging Ultrasound (Priority: 1-2 Weeks) - Pending Review Specialty Diagnoses / Procedures Referred By Contact Refer red To Contact Diagnoses related condition Bruce Zakiya Procedures [facility] [address] [place] [address] Referral ID Status Reason Start Date Expiration Date Visits V isits Requested Authorized [id number] Pending 11/29/2021 11/29/2022 1 1 Review onsultation (Priority: 1-2 Weeks) - Pending Review Specialty Diagnoses / Procedures Referred By Contact Refer red To Contact Diagnoses related condition BruceJuly Rh Maternal Med [facility] [address] [facility] [address] [place] [address] [place] [address] Phone: Fax: Referral ID Status Reason Start Date Expiration Date Visits V isits Requested Authorized [id number] Pending 11/29/2021 11/29/2022 1 1 Review Encounter Details Date Type Department Care Team Description 11/29/2021 [facility] condition (Pr [facility] MEDICAL Dx) [place] [address] [place], [place] [address] [address] [place], [place] [phone] [address] (Work) [phone] Social History Tobacco Use Types Packs/Day Years [...] as of this encounter Plan of Treatment Scheduled Referrals Name Type Priority Associated Diagnoses Order S chedule Mat Med Ctr Referral RAMYA related Expec mikal: 11/29/2021 Referral - condition (Approx imate), Expires: 2022 documented as of this encounter Results MFM US Comprehensive Single (11/30/2021 2:27 PM CDT) [...] 3:52 PM CDT Comprehensive Pat. Name: KERRNEYDA CALI Date: 11/30/2021 1:26pm Pat. NO: [id number] Referring ??MD: CRISTEL JEAN Site: [facility] Order Administrator: Kaia Tate RDMS : 1985 Age: 36 [...] ? 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 5.8 ? mm CM ?2.8 ? [...] cava. Inferior vena cava. 3-vessel ? view. 8-tmrijq-scucuft view. Cardiac position. Cardiac size. Cardiac rhythm. [...] RECOMMENDATION We discussed the findings on today's ulroslyn rasamy with the patient. On today's ultrasound cervical [...] ultrasound-indicated cerclage at this time. [facility] at [facility] was notified and the case was discussed [...] this encounter in the care of Neyda Yathao Eh, includin minutes reviewing the patient's chart 15 minutes in direct patient contact 3 minutes documenting in the medical rec ord 4 minutes in discussion with consultants /other providers Please see note for details. Procedure Note Stacie De Los Santos MD - 12/01/2021Form atting of this note might be different from the original. Comprehensive Pat. Name:KERR NEYDA LRStflorida Date:11/30/2021 1:26pm Pat. 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 Inferior vena cava. 3-vessel view. 3-dhodck-inrgzns view. Cardiac po sition. Cardiac size. Cardiac [...] ultrasound-indicated cerclage at this time. [facility] at [facility] was notified and the case was discussed with the on-call MFM (Dr. Damon). She was sent straight from our clinic for evaluation/cerclage placement. Further ultrasound studies as clinically indicated. Return to primary provider for continued care. Thank you for the opportunity to partici ashli in the care of this patient. If [...] of 22 mm by transvaginal imaging. [facility] documented in this encounter Visit Diagnoses Diagnosis related condition - Primary Unspecified complication of , u nspecified as to episode of care related condition Unspecified complication of , u nspecified as to episode of care documented in this encounter Care Teams X Ray Equipment Servicer Relationship Specialty Start Date End Date No Ref-Primary, Physician PCP - General 02/02/21 documented as of this encounter
--- OUTSIDE RECORDS SUMMARY | 2021-12-29 14:27 | XMS_ITS | Encounter Summary ---
:1985 Author Organization [place] Address [address] [facility] [place] [address] Care Team Providers Name Role Phone No Ref-Primary, Physician Primary Care Provider [phone] Reason for Referral Diagnostic Imaging Ultrasound (Priority: 1-2 Weeks) - Pending Review Specialty Diagnoses / Procedures Referred By Contact Refer red To Contact Diagnoses related condition BruceJuly Procedures [place] [address] [place] [address] Referral ID Status Reason Start Date Expiration Date Visits V isits Requested Authorized [id number] Pending 11/29/2021 11/29/2022 1 1 Review Reason for Visit Diagnostic Imaging Ultrasound (Priority: 1-2 Weeks) - Pending Review Specialty Diagnoses / Procedures Referred By Contact Refer red To Contact Diagnoses related condition BruceJuly Procedures [place] [address] [place] [address] Referral ID Status Reason Start Date Expiration Date Visits V isits Requested Authorized [id number] Pending 11/29/2021 11/29/2022 1 1 Review Encounter Details Date Type Department Care Team Description 11/30/2021 Hospital Encounter [facility] [place] [place] [address] [place] [address] related Maternal Stacie De Los Santos MD [address] [place] [address] [facility] [address] [place] [address] Social History Tobacco Use Types [...] have Coronavirus/COVID-19? documented as of this encounter Medications at Time of Discharge Medication Sig Dispensed Refills Start Date End Date progesterone (PROMETRIUM) Place 200 mg vaginally 0 200 MG capsule At Bedtime documented as of this encounter Plan of Treatment Not on filedocumented as of this encounter Procedures Procedure Name Priority Date/Time Associated Comments Diagnosis [facility] US COMPREHENSIVE RAMYA 11/30/2021 2:27 PM rela mikal Results for this SINGLE CDT condition procedure are i n the results section. documented in this encounter Results [facility] US Comprehensive Single (11/30/2021 2:27 PM CDT) [...] 11/30/2021 3:52 PM CDT Comprehensive Pat. Name: NEYDA JIANG Date: 11/30/2021 1:26pm Pat. NO: [id number] Referring ??MD: CRISTEL JEAN Site: [facility] Event Designer: Kaia Tate RDMS : 1985 Age: 36 [...] 1 lb 5 ?oz EFW by ?Hadlock ([id number]) Head / Face / Neck Biometry: Head Cashier ? 5.8 ? mm CM ?2.8 ? [...] cava. Inferior vena cava. 3-vessel ? view. 6-qmpkjo-nekiqmz view. Cardiac position. Cardiac size. Cardiac rhythm. [...] ultrasound-indicated cerclage at this time. [facility] at [facility] was notified and the case was [...] this encounter in the care of Neyda Peñamilethao Lr, includin minutes reviewing the patient's chart 15 minutes in direct patient contact 3 minutes documenting in the medical rec ord 4 minutes in discussion with consultants /other providers Please see note for details. Procedure Note Stacie De Los Santos MD - 12/01/2021Form atting of this note might be different from the original. Comprehensive Pat. Name:USHA LRKathy Date:11/30/2021 1:26pm Pat. NO: [id number] MD:ZAKIYA PEÑA [facility]Kaia Tate RD MS :1985Age:36 INDICATION Short cervix [...] 1 lb 5 oz EFW by Hadlock ([id number]) Head / Face / Neck Biometry: Head Cashier 5.8 mm CM 2.8 mm Nasal bone [...] vena cava. Inferior vena cava. 3-vessel view. 3-udbupl-xkarrjc view. Cardiac po sition. Cardiac size. Cardiac [...] ultrasound-indicated cerclage at this time. [facility] at [facility] was notified and the case was [...] this encounter in the care of Neyda Lr, includin minutes reviewing the patient's chart [...] 22 mm by transvaginal imaging. July Bruce [facility] US ORDERABLES documented in this encounter Visit Diagnoses Diagnosis related condition Unspecified complication of , u nspecified as to episode of care documented in this encounter Care Teams Shoe Dresser Relationship Specialty Start Date End Date No Ref-Primary, Physician PCP - General 02/02/21 documented as of this encounter
--- OUTSIDE RECORDS SUMMARY | 2021-12-29 14:27 | XMS_ITS | Encounter Summary ---
:1985 Author Organization [place] Address [address] [facility] [place] [address] Care Team Providers Name Role Phone No Ref-Primary, Physician Primary Care Provider [phone] Reason for Visit Auth/Cert Specialty Diagnoses / Procedures Referred By Contact Refer red To Contact furnace room supervisor Diagnoses Cervical shortening Cervical shortening Ur [address] [place] [address] Phone: Referral ID Status Reason Start Date Expiration Date Visits Requ ested Visits Authorized [id number] 1 1 Encounter Details Date Type Department Care Team Description 11/30/2021 Hospital Encounter [facility] Jacqueline Damon [facility] Birthplace DO [place] [address] [facility] [address] [place] [address] [address] [place] [address] (Wo rk) Social History Tobacco Use Types Packs/Day Years [...] have Coronavirus/COVID-19? documented as of this encounter Plan of Treatment Not on filedocumented as of this encounter Visit Diagnoses Not on filedocumented in this encounter Care Teams Synthetic Resin Operator Relationship Specialty Start Date End Date No Ref-Primary, Physician PCP - General 02/02/21 documented as of this encounter
--- OUTSIDE RECORDS SUMMARY | 2021-12-29 14:27 | XMS_ITS | Encounter Summary ---
:1985 Author Organization [place] Address [address] [place] [address]. [place] [address] Care Team Providers Name Role Phone No Ref-Primary, Physician Primary Care Provider [phone] Encounter Details Date Type Department Care Team Description 11/28/2021 Medical Correspondence [facility] Scan, Health Info Mgmt Srv cs Non-Provider [facility] [place] [address] Social History Tobacco Use Types [...] on filedocumented in this encounter Care Teams Scout Professional Sports Relationship Specialty Start Date End Date No Ref-Primary, Physician PCP - General 02/02/21 documented as of this encounter
--- OUTSIDE RECORDS SUMMARY | 2021-12-29 14:27 | XMS_ITS | Encounter Summary ---
:1985 Author Organization [place] Address Critical access hospital0 [facility] [place] [address] Care Team Providers Name Role Phone No Ref-Primary, Physician Primary Care Provider [phone] Encounter Details Date Type Department Care Team Description 11/30/2021 Travel Social History Tobacco Use Types Packs/Day Years [...] on filedocumented in this encounter Care Teams Strategic Intelligence Officer Relationship Specialty Start Date End Date No Ref-Primary, Physician PCP - General 02/02/21 documented as of this encounter
--- OUTSIDE RECORDS SUMMARY | 2021-12-29 14:27 | XMS_ITS | Encounter Summary ---
:1985 Author Organization [place] Address [facility] [place] [address] Care Team Providers Name Role Phone No Ref-Primary, Physician Primary Care Provider [phone] Reason for Visit Reason Comments Ultrasound L2/TV - short cervix on outs claire ultrasound Encounter Details Date Type Department Care Team Description 11/30/2021 Office Visit [facility] Reji Barrera [address] [place] [address] Short cervical length during , second trimester (Primary Dx); Maternal Stacie De Los Santos MD [address] [place] [address] History of delivery, currently p cassie, second trimester [facility] [place] [address] [facility] [address] [place], [place] [address] Social History Tobacco Use Types Packs/Day Years [...] have Coronavirus/COVID-19? documented as of this encounter Progress Notes Stacie De Los Santos MD - 11/30/2021 2:00 PM CDT Please see the imaging tab for details of the ultrasound performed today. Stacie De Los Santos MD Specialist in Maternal- Medicine documented in this encounter Nursing Notes Rebecca Chavarria RN - 11/30/2021 2:00 PM CDT Neyda presents to [facility] for L2/TV due to short cervix on outside scan. Dr. Vazquez reviewed ultrasound and met with patient. Pt will go to L&D for cerclage placement. foreign language interpreter utilized via Ipad for entire visit. Pt [facility] to [facility]. Rebecca Chavarria RN documented in this encounter Plan of Treatment Not on filedocumented as of this encounter Visit Diagnoses Diagnosis Short cervical length during , second trimester - Primary History of delivery, currently p regnant, second trimester documented in this encounter Care Teams Supercharger Repair Supervisor Relationship Specialty Start Date End Date No Ref-Primary, Physician PCP - General 02/02/21 documented as of this encounter
[2021-12-31 18:34] LABS: Rapid Plasma Reagin (RPR) Non Reactive (Non Reactive)
== END 2021-12-29 14:54 | disposition home or self-care (01) ==
PROVIDERS: PCP Obstetrics & Gynecology; Visit Provider Obstetrics & Gynecology
DX: Z36.89 Encounter for other specified antenatal screening (principal)
CPT/HCPCS: 86592

== ENCOUNTER 2022-02-28 12:30 | Outpatient (CLI) | payer MEDICAID, SELFPAY ==
--- OUTSIDE RECORDS SUMMARY | 2022-02-28 12:32 | XMS_ITS | Encounter Summary ---
:1985 Author Organization [place] Address [address] [place] [address] Care Team Providers Name Role Phone No Ref-Primary, Physician Primary Care Provider Reason for Referral Diagnostic Imaging Ultrasound (Priority: 1-2 Weeks) - Pending Review Specialty Diagnoses / Procedures Referred By Contact Refer red To Contact Diagnoses related condition Zakiya Jean Procedures [place] [address] [place] [address] Referral ID Status Reason Start Date Expiration Date Visits V isits Requested Authorized [id number] Pending 11/29/2021 11/29/2022 1 1 Review Reason for Visit Auth/Cert Specialty Diagnoses / Procedures Referred By Contact Refer red To Contact final operations technician Diagnoses Cervical shortening Cervical shortening Ur [address] [place] [address] Phone: Referral ID Status Reason Start Date Expiration Date Visits Requ ested Visits Authorized [id number] 1 1 Encounter Details Date Type Department Care Team Description 11/30/2021 Hospital Encounter [facility] Ludmila Jean [facility] [address] [id number] related Maternal Stacie De Los Santos MD [address] [place], [place] [address] [facility] [address] [place] [address] Social History Tobacco Use Types Packs/Day Years Used Date Smoking Tobacco: Never Smokeless Tobacco: Never Alcohol Use Standard Drinks/Week Comments Not Currently [...] drinks on one occasion? No t asked Sex Assigned at Date Recorded Not [...] Procedure Name Priority Date/Time Associated Comments Diagnosis [facility] US COMPREHENSIVE RAMYA 11/30/2021 2:27 PM rela mikal Results for this SINGLE CDT condition procedure are i n the results section. documented in this encounter Results [facility] US Comprehensive Single (11/30/2021 2:27 PM CDT) [...] 11/30/2021 3:52 PM CDT Comprehensive Pat. Name: USHA LR NEYDA Reagan hubbard Date: 11/30/2021 1:26pm Pat. NO: [id number] Referring ??MD: CRISTEL JEAN Site: [facility] Pizzamaker: Kaia Tate RDMS : 1985 Age: 36 [...] 1 lb 5 ?oz EFW by ?Hadlock ([id number]) Head / Face / Neck Biometry: Log Operations Coordinator ? 5.8 ? mm CM ?2.8 ? [...] cava. Inferior vena cava. 3-vessel ? view. 4-trubgd-wkpahtd view. Cardiac position. Cardiac size. Cardiac rhythm. [...] ultrasound-indicated cerclage at this time. Birthplace at [facility] was notified and the case [...] be different from the original. Comprehensive Pat. Name:Kathy JIANG Date:11/30/2021 1:26pm Pat. NO: [id number] MD:ZAKIYA CHRISTINA PEÑA [facility] MIKE Tate :1985Age:36 INDICATION Short cervix visualized on outside [...] 1 lb 5 oz EFW by Hadlock ([id number]) Head / Face / Neck Biometry: Log Operations Coordinator 5.8 mm CM 2.8 mm Nasal bone [...] vena cava. Inferior vena cava. 3-vessel view. 9-vwxskg-aebufjh view. Cardiac po sition. Cardiac size. Cardiac [...] ultrasound-indicated cerclage at this time. [facility]place at [facility] was notified and the case [...] 22 mm by transvaginal imaging. July Bruce NICOLE [facility] US ORDERABLES documented in this encounter Visit Diagnoses Diagnosis related condition Unspecified complication of , u nspecified as to episode of care documented in this encounter Care Teams V Belt Curer Relationship Specialty Start Date End Date No Ref-Primary, Physician PCP - General 02/02/21 documented as of this encounter
--- OUTSIDE RECORDS SUMMARY | 2022-02-28 12:32 | XMS_ITS | Encounter Summary ---
:1985 Author Organization [place] Address [address] [facility] [place] [address] Care Team Providers Name Role Phone No Ref-Primary, Physician Primary Care Provider [phone] Reason for Visit Auth/Cert Specialty Diagnoses / Procedures Referred By Contact Refer red To Contact auricular detoxification specialist Diagnoses Cervical shortening Cervical shortening Ur [address] [place] [address] Phone: Referral ID Status Reason Start Date Expiration Date Visits Requ ested Visits Authorized [id number] 1 1 Encounter Details Date Type Department Care Team Description 12/01/2021 Anesthesia Event [facility] Augustine Morgan es Birthplace MD [place] [address] [address] [facility] [address] [place], [place] [id number] (Wo rk) Anesthesia Record Procedure Summary Procedure Name Responsible Anesthesia Start Anesthesia Stop Time Anesthesiologist Time CERCLAGE, CERVIX, Ar Morgan MD 12/01/21 0908 1029 VAGINAL APPROACH (Cervix) Events Date Time Event Comment 12/01/2021 0849 FLAME ANNEALING MACHINE OPERATOR Ready for Procedure 0908 An Start 0908 [...] and realistic alternatives discussed. Questions answered and patient/office machines sales representative(s) expressed understanding. - Discussed: - Discussed [...] - 12/01/2021 9:25:00 AM Ar Morgan MD AL ANESTHESIA Spinal Block (12/01/2021 9:41 AM CDT) [...] block prior to prepping. Ar Morgan MD AL ANESTHESIA documented in this encounter Visit Diagnoses [...] mL/hr documented in this encounter Care Teams Oven Heater Relationship Specialty Start Date End Date No Ref-Primary, Physician PCP - General 02/02/21 documented as of this encounter
--- OUTSIDE RECORDS SUMMARY | 2022-02-28 12:32 | XMS_ITS | Encounter Summary ---
:1985 Author Organization [place] Address Critical access hospital0 [facility] [place] [address] Care Team Providers Name Role Phone No Ref-Primary, Physician Primary Care Provider [phone] Encounter Details Date Type Department Care Team Description 11/28/2021 Medical Correspondence [facility] Scan, Edgar Online Info Mgmt Srv cs Non-Provider [address] [place] [id number] Social History Tobacco Use Types Packs/Day Years [...] on filedocumented in this encounter Care Teams Analyst Geochemical Prospecting Relationship Specialty Start Date End Date No Ref-Primary, Physician PCP - General 02/02/21 documented as of this encounter
--- OUTSIDE RECORDS SUMMARY | 2022-02-28 12:32 | XMS_ITS | Encounter Summary ---
:1985 Author Organization [place] Address [address] [facility] [place] [address] Care Team Providers Name Role Phone No Ref-Primary, Physician Primary Care Provider Reason for Visit Reason Comments Labor Auth/Cert Specialty Diagnoses / Procedures Referred By Contact Refer red To Contact mining technician Diagnoses Cervical shortening Cervical shortening Ur 4bob [address] [place] [address] Phone: Referral ID Status Reason Start Date Expiration Date Visits Requ ested Visits Authorized [id number] 1 1 Encounter Details Date Type Department Care Team Description 12/01/2021 Surgery [facility] Jacqueline Damon AGE, CERVIX, [facility] Birthplace DO Anca [facility]AGINAL APPROACH [address] [facility] [address] [place] [address] [address] [place] [address] (Wo rk) Surgery Details Date/Time Status Location [...] Damon DO - 12/01/2021 10:34 AM CDT [facility] Discharge Summary Neyda Stauffer Age: [age] year [...] [facility] the [facility] for US-indicated cerclage placement. Hospital Course: [...] Damon DO FACOG Maternal Medicine Specialist Pager: [phone] documented in this encounter Discharge Instructions Discharge InstructionsMarjorie Kenney RN - 12/01/2021 2:52 PM CDT Undelivered Patients Discharge Instructions: Wolof La vieron por: cervical cerclage placement Consultamos a: Maternal Medicine Le hicieron/recibi?? (examen o medicamento):cervical cerclage Dieta: Drink 8 to 12 glasses of liquids (milk, juice, water) every day. You may eat meals and snacks. Actividad: Call your doctor or nurse piano refinisher if your baby is moving less than [...] roly y otrapor roly hora o m??s. Ellerbe beb?? (en adelante): Contracciones (tirantez) con menos [...] issue. Pt stable to transfer back to [facility] for remainder of recovery. IAT Jacqueline Damon DO - 12/01/2021 8:11 AM CDT MFM Antepartum Progress Note Subjective: Today, she is feeling well. Denies contractions, leaking of fluid, vaginal bleeding, or decreased movement. remediation consultant used via telephone. Objective: Vitals: 11/30/21 2130 11/30/21 2330 12/01/21 0330 12/01/21 0743 BP: 104/63 110/52 112/53 118/62 BP Location: Right arm Left arm Left arm Patient Position: Semi-Hillman's Semi-Hillamn's Semi-Hillman's Cuff Size: Adult Regular Adult Regular [...] accels, no decels, appropriate for gestational age Mystic: no contractions Ultrasound, 12/01/2021: 1) Rogers intrauterine [...] were answered to her satisfaction with a remediation consultant. # Short cervix - Consent as above [...] Damon DO - 11/30/2021 5:00 PM CDT [facility] OB History and Physical Neyda Stauffer Age: [age] year old Date of : 1985 CC: Shortened cervix Phone remediation consultant present HPI: Neyda Stauffer is a 36 [...] Status: No results found for: GBS Ultrasounds [facility] US Comprehensive Single Narrative: Comprehensive Pat. Name: NEYDA JIANG Study Date: 11/30/2021 1:26pm Pat. NO: [id number] Referring MD: DANNY JEAN Site: [facility] Patient Svcs Mgr: Kaia Tate RDMS : 1985 Age: 36 [...] 5d Hadlock Humerus 38.3 mm 23w 4d [facility] Weight Calculation: EFW 609 g 56% Hadlock EFW (lb,oz) 1 lb 5 oz EFW by Hadlock ([id number]) Head / Face / Neck Biometry: Medical Insurance Coder 5.8 mm CM 2.8 mm Nasal bone [...] vena cava. Inferior vena cava. 3-vessel view. 5-vylhxb-azuumlo view. Cardiac position. Cardiac size. Cardiac rhythm. [...] ultrasound-indicated cerclage at this time. [facility] at [facility] was notified and the case was discussed [...] mod variability, + accelerations, occasional variable decelerations Mystic: Quiet, no contractions Assessment Ms. Neyda Stauffer is a 36 year old , at 23w2d by LMP c/w 1st trimester US admitted for US-indicated cerclage for shortened cervix. 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 Nelson Novoa MD MARKET RESEARCH WORKER, PGY-3 11/30/2021, 5:00 PM Physician Attestation Jacqueline [...] the morning. NST: reassuring for gestational age Mystic: quiet Jacqueline Damon DO Date of Service [...] Damon DO FACOG Maternal Medicine Specialist Pager: [phone] Plan of Care - Angelica Gastelum RN [...] With: patient Overall Patient Progress: improving VSS. Mystic shows no contractions. FHTs AGA. Neyda denies [...] 5:49 PM CDT Data: Patient presented to [facility] at 1510. Reason for maternal/ assessment per [...] Code Phon e Number UU IDD LABORATORY [facility] [place] [address] Diag. Lab [address] [facility], Room D297 UA reflex to Microscopic (11/30/2021 [...] UR LABORATORY mg/dL 5:19 PM CDT Specific [place] 1.008 1.003 - 11/30/2021 UR LABORATOR Y [...] City/State/ZIP Code Phon e Number UR LABORATORY [facility] [place] [address] Care Lab [address] [facility], Room M309 Asymptomatic COVID-19 Virus (Coronavirus) [...] sugges ts COVID-19. ??[facility] [employer] are certified under the Clinical Laborat ory Improvement Amendments of 1988 (CLIA-88) as qualified to perform moderate and/or high complexity laboratory testing. Bev Novao MD LAB - MICRO GENERAL ORDERABL ES Performing Organization Address City/State/ZIP Code Phon e Number UR LABORATORY [facility] [place] [address] Care Lab [address] [place] [address], Room M309 Adult Type and Screen (11/30/2021 4:15 PM CDT) [facility] Method Time Signature ABO/RH(D) O POS 11/30/2021 UR BLOOD 4:00 PM CDT BANK Antibody Negative Negative 11/30/2021 UR BLOOD Screen 4:00 PM CDT BANK SPECIMEN [id number] 11/30/2021 UR BLOOD EXPIRATION 4:00 PM CDT BANK DATE Specimen Anatomical Collection Method / Collection Time Recei melvi Time (Source) Location / Volume Laterality Blood STRUCTURE OF LEFT Venipuncture / 11/30/2021 4:15 11/30 4:44 UPPER LIMB / Unknown PM CDT PM CDT Unknown Bev Novoa MD LAB - BLOOD BANK TEST ORDER Performing Organization Address [facility] Phon e Number UR BLOOD BANK [facility] [place] [address] Components Lab [address] [facility], Room M301 (ABNORMAL) CBC with platelets and differential (11/30/2021 4:15 PM CDT) [facility] Method Time Signature WBC Count 9.1 [...] City/State/ZIP Code [place] [address] Care Lab [address] [facility], Room M309 Group B strep PCR [...] - 12/01/2021 8:59 PM C DT [employer] Xpert GBS LB Assay, performe d on the Xerox?? Instrument Systems, is a qualitative in vitro [...] or monitor treatment for GBS infections. The [employer] Xpert GBS LB Ass ay is intended for use in hospital, reference or state laboratory settings. The device is not intended for ksqsr-mj-svqm use. Bev Novoa MD LAB - MICRO GENERAL ORDERABL ES Performing Organization Address City/State/ZIP Code Phon e Number UU IDD LABORATORY [facility] [place] [place] [address] Diag. Lab [address] [facility], Room D297 (ABNORMAL) Wet prep (11/30/2021 4:11 [...] City/State/ZIP Code [place] [address] Care Lab [address] [facility], Room M309 documented in this encounter Visit Diagnoses Diagnosis Cervical shortening in second trimester - Primary Cervical shortening, antepartum conditio n or complication Cervical shortening Cervical incompetence Cervical incompetence, unspecified as to [...] after each naloxone dose. Consider transfer to [facility] if patient respiratory parameters hav e not [...]
Antepartum documented in this encounter Care Teams Optimization Manager Relationship Specialty Start Date End Date No Ref-Primary, Physician PCP - General 02/02/21 documented as of this encounter
--- OUTSIDE RECORDS SUMMARY | 2022-02-28 12:32 | XMS_ITS | Encounter Summary ---
:1985 Author Organization [place] Address [address] [place] [address] Care Team Providers Name Role Phone No Ref-Primary, Physician Primary Care Provider [phone] Reason for Visit Reason Comments Ultrasound L2/TV - short cervix on outs claire ultrasound Auth/Cert Specialty Diagnoses / Procedures Referred By Contact Refer red To Contact liaison officer Diagnoses Cervical shortening Cervical shortening Ur 4bob [address] [place] [address] Phone: Referral ID Status Reason Start Date Expiration Date Visits Requ ested Visits Authorized [id number] 1 1 Encounter Details Date Type Department Care Team Description 11/30/2021 Office Visit [facility] Reji Barrera [place] [address] [place], [place] [id number] Short cervical length during , second trimester (Primary Dx); Maternal Stacie De Los Santos MD [address] [facility] [address] [place] [address] History of delivery, currently gaby matthews, second trimester [facility] [place] [address] [place], [place] [address] Social History Tobacco Use Types [...] 11/30/2021 2:00 PM CDT Neyda presents to [facility] for L2/TV due to short cervix on outside scan. Dr. Vazquez reviewed ultrasound and met with patient. Pt will go to L&D for cerclage placement. spanish interpreter utilized via Ipad for entire visit. Pt accompanied to [facility]. Rebecca Chavarria RN documented in this encounter Plan of Treatment Not on filedocumented as of this encounter Visit Diagnoses Diagnosis Short cervical length during , second trimester - Primary History of delivery, currently p regnant, second trimester documented in this encounter Care Teams Ux Lead Relationship Specialty Start Date End Date No Ref-Primary, Physician PCP - General 02/02/21 documented as of this encounter
--- OUTSIDE RECORDS SUMMARY | 2022-02-28 12:32 | XMS_ITS | Clinical Summary ---
:1985 Author Organization [place] Address [address] [place] [address] Care Team Providers Name Role Phone No Ref-Primary, Physician Primary Care Provider [phone] Allergies No known active allergies Medications Medication [...] Type Specialty Care Team Description 12/01/2021 Surgery assistant grocery Nelson, CERCLAGE, CERVI X, Jacqueline March, VAGINAL PRANAY NOEL DO 12/01/2021 Anesthesia Event assistant grocery Ar Morgan MD 11/30/2021 - Hospital Encounter assistant grocery Nelson, Cervical 12/01/2021 Jacqueline March, shortening in DO second trimeste r (Primary Dx) 11/30/2021 Office Visit Maternal and Epijuly Short cervical length during , second trimester (Primary Dx); Medicine Stacie De Los Santos History of delivery, currently , second trimester MD Anu 11/30/2021 Hospital Encounter Radiology. Bruce, Jul il related Stacie De Los Santos condition MD Anu 11/30/2021 Travel 11/29/2021 PRE VISIT Maternal and [place], Ultrasound Medicine Sarah Beth Burns RN (L2/TV-short cervix) 11/29/2021 Transcribe Orders Maternal and Epijuly Pregnan cy related Medicine condition (Pr imary [...] drinks on one occasion? No t asked Estimated Date of Delivery Comments Yes 03/27/2022 Based on Ultrasound Sex Assigned at Date Recorded Not on file Last Filed Vital Signs Vital Sign Reading [...] 1985 ANNUAL REVIEW OF HM ORDERS 1985 HEPATITIS B IMMUNIZATION (1 1987 of 3 - 3-dose series) YEARLY PREVENTIVE VISIT 1985 COVID-19 Vaccine (#1) 1985 HIV SCREENING 06/28/2002 HEPATITIS C SCREENING 06/28/2005 PHQ-2 (once per calendar 04/09/2021 year) MATERNAL SCREENING 10/03/2021 OBGCT (OB) 12/05/2021 INFLUENZA VACCINE (#1) 2021 01/24/2021, 02/06/2020, 01/23/2018, Additional history exists REPEAT ANTIBODY SCREEN (OB) 01/02/2022 11/30/2021, 10/27/20 21 GROUP B STREP SCREENING 02/27/2022 11/30/2021, 02/02/2021 PAP 01/29/2023 01/30/2020 DTAP/TDAP/TD IMMUNIZATION 01/24/2031 01/24/2021, 03/06/2017 , (4 - Td or Tdap) 04/05/2012 IPV IMMUNIZATION Aged Out No longer eligi [...] are i n the results section. MFM COMPREHENSIVE RAMYA 11/30/2021 2:27 related Results for [...] - 12/01/2021 9:25:00 AM Ar Morgan MD [place] ANESTHESIA UA reflex to Microscopic (11/30/2021 4:44 [...] UR LABORATORY mg/dL 5:19 PM CDT Specific [place] 1.008 1.003 - 11/30/2021 UR LABORATOR Y [...] City/State/ZIP Code Ph[place] [address] Care Lab [address] [facility], Room M309 Urine Culture (11/30/2021 4:44 [...] Code Phon e Number UU IDD LABORATORY [facility] [place] [place] [address] [facility], Room D297 Asymptomatic COVID-19 Virus (Coronavirus) by [...] exposure or clinical presentation sugges ts COVID-19. ??[facility] [employer] are certified under the Clinical Laborat ory Improvement Amendments of 1988 (CLIA-88) as qualified to perform moderate and/or high complexity laboratory testing. Bev Novoa MD LAB - MICRO GENERAL ORDERABL ES Performing Organization Address City/State/ZIP Code Phon e Number UR LABORATORY [facility] [place] [address] Care Lab [address] [facility], Room M309 (ABNORMAL) CBC with platelets and differential (11/30/2021 4:15 PM CDT) [facility] gist Method Time Signature WBC Count 9.1 [...] City/State/ZIP Code Phon e Number UR LABORATORY [facility] [place] [address] Care Lab [address] [facility], Room M309 Adult Type and Screen (11/30/2021 4:15 PM CDT) [facility] gist Method Time Signature ABO/RH(D) O POS 11/30/2021 UR BLOOD 4:00 PM CDT BANK Antibody Negative Negative 11/30/2021 UR BLOOD Screen 4:00 PM CDT BANK SPECIMEN [id number] 11/30/2021 UR BLOOD EXPIRATION 4:00 PM CDT BANK DATE Specimen Anatomical Collection Method / Collection Time Recei melvi Time (Source) Location / Volume Laterality Blood STRUCTURE OF LEFT Venipuncture / 11/30/2021 4:15 11/30 4:44 UPPER LIMB / Unknown PM CDT PM CDT Unknown Bev Novoa MD LAB - BLOOD BANK TEST ORDER Performing Organization Address City/State/ZIP Code Phon e Number UR BLOOD BANK [facility] [place] [address] Components Lab [address] [facility], Room M301 (ABNORMAL) Wet prep (11/30/2021 4:11 [...] MICRO GENERAL ORDERABL ES Performing Organization Address City/State/[facility] Phon e Number UR LABORATORY [facility] [place] [address] [address] [place] [address], Room M309 Group B strep PCR (11/30/2021 4:11 PM CDT) Analysis Performed At [facility] Group B Strep Negative Negative 12/01/2021 UU [...] - 12/01/2021 8:59 PM C DT The [employer] Xpert GBS LB Assay, performe d on the USMD?? Instrument Systems, is a qualitative in vitro [...] or monitor treatment for GBS infections. The [employer] Xpert GBS LB Ass ay is intended for use in hospital, reference or state laboratory settings. The device is not intended for uncit-bn-gpzq use. Bev Novoa MD LAB - MICRO GENERAL ORDERABL ES Performing Organization Address City/State/ZIP Code Phon e Number UU IDD LABORATORY [facility] [place] [id number] Diag. Lab [address] [facility], Room D297 [facility] US Comprehensive Single (11/30/2021 2:27 PM CDT) Anatomical Region Laterality Modality Ultrasound Specimen (Source) Anatomical Collection Method Collection Time Re ceived Time Location / / Volume Laterality 11/30/2021 1:26 PM CDT Impressions 11/30/2021 3:52 PM CDT IMPRESSION 1) Rogres intrauterine at 2 3w 2d gestational age. [...] PM CDT Comprehensive Pat. Name: USHA LR EDJEANNIE hubbard Date: 11/30/2021 1:26pm Pat. NO: [id number] Referring ??MD: CRISTEL JEAN Site: [facility] Director Of Maternity Services: Kaia Tate RDMS : 1985 Age: 36 [...] 1 lb 5 ?oz EFW by ?Hadlock ([id number]) Head / Face / Neck Biometry: Rehab Office Coordinator ? 5.8 ? mm CM ?2.8 [...] cava. Inferior vena cava. 3-vessel ? view. 0-zkhaky-jfuiujm view. Cardiac position. Cardiac size. Cardiac rhythm. [...] ultrasound-indicated cerclage at this time. [facility] was notified and the case was [...] Pat. Name:Kathy JIANG Date:11/30/2021 1:26pm Pat. NO: [id number] MD:DANNY PEÑA [facility]Kaia Tate RD MS :1985Age:36 INDICATION Short cervix [...] 1 lb 5 oz EFW by Hadlock ([id number]) Head / Face / Neck Biometry: Rehab Office Coordinator 5.8 mm CM 2.8 mm Nasal [...] vena cava. Inferior vena cava. 3-vessel view. 7-icbkax-lfmopnv view. Cardiac po sition. Cardiac size. Cardiac [...] ultrasound-indicated cerclage at this time. [facility] was notified and the case was [...] encounter in the care of Neyda Parth Eh, includin minutes reviewing the patient's chart [...] of 22 mm by transvaginal imaging. July [facility] US ORDERABLES LAB RESULT - HIM SCAN (11/28/2021 12:00 AM CDT) Specimen (Source) Anatomical Location Collection Method / Collectio n Time Received Time / Laterality Volume 11/28/2021 Narrative This result has an attachment that is no t available. Provider Outside NON-BEAKER LAB TESTING from Last 3 Months Insurance Payer Benefit Plan / Subscriber ID Effective Phone Address T ype Group Dates [place] [id number] 2021-Prese [phone] [address] [place] [address] Advance Directives For more information, please contact: [phone] Latest Code Status on File Code Status Date Activated Date Inactivated Comments Full Code 11/30/2021 3:53 PM 12/01/2021 5:32 PM All basic an d advanced life-sustaining interventions are performed as pranay ropriate Question Answer Comments Code status determined by: Discussion with patient/ legal de cision maker Code Status History Code Status Date Activated Date Inactivated Comments Full Code 02/02/2021 5:27 PM 02/04/2021 1:58 PM All basic and advanced life-sustaining interventions are performed as pranay ropriate Question Answer Comments Code status determined by: Discussion with patient/ legal de cision maker Care Teams Glue Wheel Operator Relationship Specialty Start Date End Date No Ref-Primary, Physician PCP - General 02/02/21
--- OUTSIDE RECORDS SUMMARY | 2022-02-28 12:32 | XMS_ITS | Encounter Summary ---
:1985 Author Organization [place] Address [facility] [place] [address] Care Team Providers Name Role Phone No Ref-Primary, Physician Primary Care Provider [phone] Reason for Referral Diagnostic Imaging Ultrasound (Priority: 1-2 Weeks) - Pending Review Specialty Diagnoses / Procedures Referred By Contact Refer red To Contact Diagnoses related condition BruceJuly Procedures [facility] MEDICAL [address] [place] [address] Referral ID Status Reason Start Date Expiration Date Visits V isits Requested Authorized [id number] Pending 11/29/2021 11/29/2022 1 1 Review onsultation (Priority: 1-2 Weeks) - Pending Review Specialty Diagnoses / Procedures Referred By Contact Refer red To Contact Diagnoses related condition Epijuly Rh Maternal Med [facility] MED[facility] [address] [facility] [address] [place] [address] [place] [address] Phone: Fax: Referral ID Status Reason Start Date Expiration Date Visits V isits Requested Authorized [id number] Pending 11/29/2021 11/29/2022 1 1 Review Encounter Details Date Type Department Care Team Description [facility], [place] related Maternal FAMILYHEALTH condition (Pr [facility] MEDICAL Dx) [place] [address] [place], [place] [address] [address] [place], [place] [phone] [address] (Work) [phone] Social History Tobacco Use Types Packs/Day Years [...] Name Type Priority Associated Diagnoses Order [facility] Referral RAMYA related Expec [...] KERRNEYDA POWERS Date: 11/30/2021 1:26pm Pat. NO: [id number] Referring ??MD: CRISTEL JEAN Site: [facility] Dramatic Teacher: Kaia Tate RDMS : 1985 Age: 36 INDICATION Short cervix visualized on outside ultra sound. METHOD Transvaginal ultrasound examination was required to adequately complete the exam.. Transabdominal ultrasound examination. View: Sufficient Rogers . Number of fetuses: 1 DATING ? Date ?Details ?Gest. age ?WILL Prior assessment ? 8/ ? GA: 23 w + 0 d [...] 1 lb 5 ?oz EFW by ?Hadlock ([id number]-FL) Head / Face / Neck Biometry: Dredge Lever Operator ? 5.8 ? mm CM ?2.8 ? [...] cava. Inferior vena cava. 3-vessel ? view. 6-pxhada-gdyxxhh view. Cardiac position. Cardiac size. Cardiac rhythm. [...] ultrasound-indicated cerclage at this time. [facility] was notified and the case was discussed [...] encounter in the care of Neyda Parth Stauffer, includin minutes reviewing the patient's chart 15 minutes in direct patient contact 3 minutes documenting in the medical rec ord 4 minutes in discussion with consultants /other providers Please see note for details. Procedure Note Stacie De Los Santos MD - 12/01/2021Form atting of this note might be different from the original. Comprehensive Pat. Name:KERR ADELINE BRIANJEANNIEStflorida Date:11/30/2021 1:26pm Pat. NO: [id number] MD:ZAKIYA PEÑA [facility]Ka[facility] Tate MIKE ARRIETA :1985Age:36 INDICATION Short [...] 1 lb 5 oz EFW by Hadlock ([id number]-[id number]-FL) Head / Face / Neck Biometry: Dredge Lever Operator 5.8 mm CM 2.8 mm Nasal bone [...] vena cava. Inferior vena cava. 3-vessel view. 8-uixhdf-iyewoca view. Cardiac po sition. Cardiac size. Cardiac [...] ultrasound-indicated cerclage at this time. [facility] was notified and the case was discussed with the on-call MFM (Dr. Damon). She was sent straight from our clinic for evaluation/cerclage placement. Further ultrasound studies as clinically indicated. Return to primary provider for continued care. Thank you for the opportunity to partici sahli in the care of this patient. If [...] 22 mm by transvaginal imaging. July Bruce [facility] US ORDERABLES documented in this encounter Visit Diagnoses Diagnosis related condition - Primary Unspecified complication of , u nspecified as to episode of care related condition Unspecified complication of , u nspecified as to episode of care documented in this encounter Care Teams Property Controller Relationship Specialty Start Date End Date No Ref-Primary, Physician PCP - General 02/02/21 documented as of this encounter
--- OUTSIDE RECORDS SUMMARY | 2022-02-28 12:32 | XMS_ITS | Encounter Summary ---
:1985 Author Organization [place] Address [address] [place] [address] Care Team Providers Name Role Phone No Ref-Primary, Physician Primary Care Provider Encounter Details Date Type Department Care Team [...] on filedocumented in this encounter Care Teams Ship'S Carpenter Relationship Specialty Start Date End Date No Ref-Primary, Physician PCP - General 02/02/21 documented as of this encounter
--- OUTSIDE RECORDS SUMMARY | 2022-02-28 12:32 | XMS_ITS | Encounter Summary ---
:1985 Author Organization [place] Address [address] [place] [address] Care Team Providers Name Role Phone No Ref-Primary, Physician Primary Care Provider [phone] Reason for Visit Reason Comments Ultrasound L2/TV-short cervix Encounter Details Date Type Department Care Team Description 11/29/[address] [facility] Sarah Beth Alejandre Ultra sound (L2/TV-short Maternal Medicine M, RN cerv ix) [facility] [address] [place], [place] [address] Social History Tobacco Use Types [...] on filedocumented in this encounter Care Teams Clinical Education Specialist Relationship Specialty Start Date End Date No Ref-Primary, Physician PCP - General 02/02/21 documented as of this encounter
--- OUTSIDE RECORDS SUMMARY | 2022-02-28 12:33 | XMS_ITS | Encounter Summary ---
:1985 Author Organization [place] Address [address] [place] [address] Care Team Providers Name Role Phone No Ref-Primary, Physician Primary Care Provider [phone] Reason for Visit Auth/Cert Specialty Diagnoses / Procedures Referred By Contact Refer red To Contact network consultant Diagnoses labor MAternity*mary: 03/11/21/PTL labor Ur 4bob [address] [place] [address] Phone: Referral ID Status Reason Start Date Expiration Date Visits Requ ested Visits Authorized [id number] 1 1 Encounter Details Date Type Department Care Team Description 02/03/2021 Virtual Visit [facility] Leda Long [employer] [address] [place] [phone] Social History Tobacco Use Types [...] on filedocumented in this encounter Care Teams Commercial Lease Administrator Relationship Specialty Start Date End Date No Ref-Primary, Physician PCP - General 02/02/21 documented as of this encounter
--- OUTSIDE RECORDS SUMMARY | 2022-02-28 12:33 | XMS_ITS | Encounter Summary ---
:1985 Author Organization [place] Address [facility] [place] [address] Care Team Providers Name Role Phone No Ref-Primary, Physician Primary Care Provider [phone] Reason for Visit Reason Comments Rule Out Labor Auth/Cert Specialty Diagnoses / Procedures Referred By Contact Refer red To Contact database administration associate Diagnoses labor MAternity*mary: 03/11/21/PTL labor Ur 4bob [address] [place] [phone] Phone: Referral ID Status Reason Start Date Expiration Date Visits Requ ested Visits Authorized [id number] 1 1 Encounter Details Date Type Department Care Team Description 02/02/2021 - Hospital Encounter [facility] Naty Carlson MD [address] [facility] [address] [place] [address] Bacterial vaginosis in (Primar y Dx); 02/04/2021 [facility] Birthplace Rebecca Nolasco MD [address] [email or web address] [address] [place] [address] labor in third trimester without delivery [address] [place] [address] Social History Tobacco Use Types [...] 02/04/2021 9:07 AM CDT ANTEPARTUM DISCHARGE SUMMARY [facility] Neyda Stauffer [id number] Date of Admission: 02/02/2021 Date of Discharge: [...] c/w first trimester US that presented to [facility] with contractions for 1 day. Patient had [...] Instructions: - Follow up with your primary manager proposal this week - return precautions discussed Discharge Medications: Review of your medicines START taking Dose / Directions metroNIDAZOLE 500 MG tablet Commonly known as: FLAGYL Indication: BV Used for: Bacterial vaginosis in Dose: 500 mg Take 1 tablet (500 mg) by mouth 2 times daily for 4 days Quantity: 8 tablet Refills: 0 Where to get your medicines These medications were sent to [facility] [place], [place] - [address] [address] ?? metroNIDAZOLE 500 MG tablet August Garner MD PRINCIPAL CLOUD ARCHITECT PGY-2 02/04/2021 9:10 AM Nya Carlson MD, FACOG (she/her/hers) Tenant Coordinator Department of Stitching Department Supervisor/[facility] [employer] [address] [place] [address] [email or web address]. [phone] f. [phone] 02/04/2021 2:48 PM documented in this encounter [...] female at 34w6d by LMP c/w 1st tri , HD#2 admitted for labor as a transfer from [facility]. notable for genital HSV, failed GCT passed [...] discussed with Dr. Leslie. August Garner MD PRINCIPAL CLOUD ARCHITECT PGY-2 02/03/2021 9:56 AM The patient was [...] c/w early US admitted as OPAL from [facility] for labor evaluation. ?? # Labor - [...] Continue maintenance IVF @ 125/h - S/p SALESPERSON MEN'S HATS consult, discussed risks/benefits of BMZ - now [...] Nolasco MD - 02/02/2021 5:46 PM CDT [facility] OB History and Physical Neyda Stauffer Age: [age] year old Date of : 1985 CC: Contractions HPI: Neyda Stauffer is a 35 year old yo at 34w5d by LMP c/w first trimester US that presented to [facility] with contractions that started early this AM. They were painful. Patienthad a positive FFN, and was noted to be dilated to 3-4/60/0 at outside hospital. She was started on a mpicillin for GBS prophylaxis, and given fluid resuscitation. She was transferred to [facility] for further management On arrival, patient continues [...] 150, moderate variability, + accelerations, no decelerations [place]: 3 contractions in 10 minutes Assessment/Plan Neyda Stauffer is a 35 year old yo at 34w5d by LMP c/w first trimester US that presented to [facility] with contractions for 1 day with concern [...] with the treatment plan. August Garner MD PRINCIPAL CLOUD ARCHITECT PGY-2 02/02/2021 6:57 PM Staff MD Note [...] room 471 at 1702, by ambulance from [facility]. Patient is a . record reviewed. OB [...] as reason for admission. Action: Report from counselor nurses' association, RN obtained at 1710 and care of [...] with plan. Patient denies pain currently. Using Senior Architect/Design Manager via IPAD. Provider Notification - Coty Harden RN - 02/02/2021 5:52 PM CDT 02/02/21 175 Provider Notification Provider Name/Title Dr. Garner Method of Notification At Bedside Request Evaluate in Person Notification Reason TERESAE performing SVE: /1, collecting labs, cephalic per U/S. Plan to admit patient and for NICU consult. Patient would like to have NICU consult to discuss Betamethasone with SALESPERSON MEN'S HATS. documented in this encounter Plan of Treatment [...] exposure or clinical presentation sugges ts COVID-19. ??[facility] [employer] are certified under the Clinical Laborat ory Improvement Amendments of 1988 (CLIA-88) as qualified to perform moderate and/or high complexity laboratory testing. Katya Salazar MD LAB - MICRO GENERAL ORDERABL ES Performing Organization Address City/State/ZIP Code [place] [address] Care Lab [address] [facility], Room M309 Chlamydia trachomatis/Neisseria gonorrhoeae by PCR (02/02/2021 6:53 PM CDT) [facility] Method Time Signature Chlamydia Negative Negative 02/03/2021 UU IDD Trachomatis 1:01 PM CDT LABORATORY Comment: Negative for C. trachomatis rRNA by boyce scription mediated amplification. A negative result by telephone directory distributor driver media mikal amplification does not preclude the presence of infection because results are dependent on proper and adequate collection, absence of inhibitors and sufficient rRNA to be detected. Neisseria gonorrhoeae Negative Negative 02/03/2021 1:0 1 PM CDT UU IDD LABORATORY Comment: Negative for N. gonorrhoeae rRN A by telephone directory distributor driver mediated amplification. A negative result by telephone directory distributor driver mediate d amplification does not preclude the [...] Collection / CDT PM CDT Unknown Katya Salazar MD LAB - MICRO GENERAL ORDERABL ES Performing Organization Address City/State/[facility] Code Phon e Number UU IDD LABORATORY [facility] [place] [place] [phone] Diag. Lab [address] [facility], Room D297 UU IDD LABORATORY [facility] Infectious [place], [place] [phone] Diseases Diagnostic [phone], [facility] Lab (IDDL) [address] [facility], Room D297 Drug abuse scrn 7 UR (/) (RH, SH, UR) (02/02/2021 6:37 PM CDT) [facility] Method Time Signature Amphetamines Screen Screen 02/02/2021 UR LABORATORY Urine Negative Negative 7:00 PM CDT Comment: Cutoff for a negative amphetami ne is 500 ng/mL or less. Cannabinoids Urine Screen Negative Screen Negative 021 7:00 UR LABORATORY PM CDT Comment: Cutoff [...] City/State/ZIP Code Phon e Number UR LABORATORY [facility] [place] [phone] Care Lab [address] [facility], Room M309 Group B strep [...] - 02/03/2021 8:38 PM C DT The CepSensorberg GmbHid Xpert GBS LB Assay, performe d on the Comprimato?? [employer], is a qualitative in vitro diagnostic [...] or monitor treatment for GBS infections. The [employer] Xpert GBS LB Ass ay is intended for use in hospital, reference or state laboratory settings. The device is not intended for oyplh-id-vfrw use. August Garner MD LAB - MICRO GENERAL ORDERABL ES Performing Organization Address City/State/ZIP Code Phon e Number UU IDD LABORATORY [facility] [place] [place] [address] Diag. Lab [address] [facility], Room D297 UU IDD LABORATORY [facility] Infectious [place], [place] [phone] Diseases Diagnostic [phone], [facility] Lab (IDDL) [address] [facility], Room D297 (ABNORMAL) CBC with platelets and differential (02/02/2021 6:09 PM CDT) [facility] Method Time Signature WBC Count 9.8 4.0 [...] LAB - BLOOD ORDERABLES Performing Organization Address City/[facility]/ZIP Code Phon e Number UR LABORATORY [facility] [place] [phone] [address] [place] [address], Room M309 Adult Type and Screen (02/02/2021 6:09 PM CDT) [employer] Method Time Signature ABO/RH(D) O POS 02/02/2021 UR BLOOD 5:30 PM CDT BANK Antibody Negative Negative 02/02/2021 UR BLOOD Screen 5:30 PM CDT BANK SPECIMEN [id number] 02/02/2021 UR BLOOD EXPIRATION 5:30 PM CDT BANK DATE Specimen Anatomical Collection Method / Collection Time Recei melvi Time (Source) Location / Volume Laterality Blood STRUCTURE OF LEFT Venipuncture / 02/02/2021 6:09 02/02 6:27 UPPER LIMB / Unknown PM CDT PM CDT Unknown August Garner MD LAB - BLOOD BANK TEST ORDER Performing Organization Address City/[facility]/ZIP Code Phon e Number UR BLOOD BANK [facility] [place] [address] Components Lab [address] [place] [address], Room M301 Treponema Abs w Reflex to [...] City/State/ZIP Code Phon e [place] [address] CORE/PROT/ENDO Core/Prot/Endo [address] [facility], Room 3-580 [facility] SPECIALTY CORE [facility] [place] Lab [phone], [facility] [address] [facility], Room L271-5 documented in this encounter Visit [...] mcg 200 mcg, Intramuscular, EVERY 2 HOURS [place] N, ONLY for uterine atony with significant [...] 1723, Administer intramuscular if an intravenous ro [place] is not available and notify provider when [...] 1723, Administer intramuscular if an intravenous ro [place] is not available and notify provider when [...] Toro, RN) 2018 (Given - Provider: Mariluz Price RN) 12 mg, Intramuscular, EVERY 24 HOURS, Fi rst dose on Sun02/02/21 at 2100, For 2 doses, Antepartum metroNIDAZOLE (FLAGYL) tablet 500 mg 1947 (Given - Provider: Lu Toro, RN) 075 (Given - Provider: Leda Benitez, ROSA)2016 (Given - Provider: Mariluz Price RN) 0804 (Given - Provider: Juliocesar Calderon RN) [...] Reason: IV Infusing)1052 (Given - Provider: Leda Benitez RN)1746 (Given - Provider: Mariluz Price, ROSA) [...] mcg 200 mcg, Intramuscular, EVERY 2 HOURS [place] N, ONLY for uterine atony with significant [...]
Intrapartum documented in this encounter Care Teams Waste Machine Operator Relationship Specialty Start Date End Date No Ref-Primary, Physician PCP - General 02/02/21 documented as of this encounter
[2022-03-01 13:51] LABS: Strep B DNA Probe NEGATIVE (Negative)
[2022-03-02 14:46] LABS: Strep B Pen/Amox Allergy No
== END 2022-02-28 12:31 | disposition home or self-care (01) ==
LOC: NFLDREF 12:30
PROVIDERS: PCP Obstetrics & Gynecology; Visit Provider Obstetrics & Gynecology
DX: Z34.93 Encounter for supervision of normal pregnancy, unspecified, third trimester (principal); Z3A.36 36 weeks gestation of pregnancy
CPT/HCPCS: 87081; 87653

== ENCOUNTER 2022-02-28 13:21 | Outpatient (CLI) | payer MEDICAID, SELFPAY ==
--- OUTSIDE RECORDS SUMMARY | 2022-02-28 13:23 | XMS_ITS | Encounter Summary ---
:1985 Author Organization [place] Address [address] [place] [address] Care Team Providers Name Role Phone No Ref-Primary, Physician Primary Care Provider [phone] Reason for Visit Auth/Cert Specialty Diagnoses / Procedures Referred By Contact Refer red To Contact heat and frost insulator Diagnoses Cervical shortening Cervical shortening Ur 4bob [address] [place] [address] Phone: Referral ID Status Reason Start Date Expiration Date Visits Requ ested Visits Authorized [id number] 1 1 Encounter Details Date Type Department Care Team Description 12/01/2021 Anesthesia Event [facility] Augustine Morgan es Birthplace MD Anthony [address] [phone] [facility] [address]/ [address] [place], [place] [phone] (Wo rk) Anesthesia Record Procedure Summary Procedure Name Responsible Anesthesia Start Anesthesia Stop Time Anesthesiologist Time CERCLAGE, CERVIX, Ar Morgan MD 12/01/21 0908 1029 VAGINAL APPROACH (Cervix) Events Date Time Event Comment 12/01/2021 0849 GASKET NOTCHER Ready for Procedure 0908 An Start 0908 [...] and realistic alternatives discussed. Questions answered and patient/patient relations representative(s) expressed understanding. - Discussed: - Discussed [...] - 12/01/2021 9:25:00 AM Ar Morgan MD IN ANESTHESIA Spinal Block (12/01/2021 9:41 AM CDT) [...] block prior to prepping. Ar Morgan MD IN ANESTHESIA documented in this encounter Visit Diagnoses [...] drip CDT Intravenous, CONTINUOUS PRN, Starting on Pniky 12/01/21 at 0942, Anesthesia Intra-op Rate/Dose Change 12/01/2021 9:50 AM CDT 30 mcg/min 9 mL/hr New Bag 12/01/2021 9:42 AM CDT 50 mcg/min 15 mL/hr documented in this encounter Care Teams Peer Financial Counselor Relationship Specialty Start Date End Date No Ref-Primary, Physician PCP - General 02/02/21 documented as of this encounter
--- OUTSIDE RECORDS SUMMARY | 2022-02-28 13:23 | XMS_ITS | Clinical Summary ---
:1985 Author Organization [place] Address [address] [place] [address] Care Team Providers Name Role Phone No Ref-Primary, Physician Primary Care Provider [phone] Allergies No known active allergies Medications [...] Type Specialty Care Team Description 12/01/2021 Surgery wad lubricator Nelson, CERCLAGE, CERVI X, Jacqueline March, VAGINAL PRANAY NOEL DO 12/01/2021 Anesthesia Event wad lubricator Ar Morgan MD 11/30/2021 - Hospital Encounter wad lubricator Nelson, Cervical 12/01/2021 Jacqueline March, shortening in DO second trimeste r (Primary Dx) 11/30/2021 Office Visit Maternal and Epijuly Short cervical length during , second trimester (Primary Dx); Medicine Stacie De Los Santos History of delivery, currently , second trimester MD Anu 11/30/2021 Hospital Encounter Radiology. Burce, Jul il related Stacie De Los Santos [...] - 12/01/2021 9:25:00 AM Ar Morgan MD [place] ANESTHESIA UA reflex to Microscopic (11/30/2021 4:44 [...] UR LABORATORY mg/dL 5:19 PM CDT Specific [place] 1.008 1.003 - 11/30/2021 UR LABORATOR Y [...] City/State/ZIP Code Ph[place] [address] Care Lab [address] [facility], Room M309 Urine Culture (11/30/2021 4:44 [...] Code Phon e Number UU IDD LABORATORY [facility] [place] [address] Diag. Lab [address] [facility], Room D297 Asymptomatic COVID-19 Virus (Coronavirus) by [...] exposure or clinical presentation sugges ts COVID-19. ??[facility] [employer] are certified under the Clinical Laborat ory Improvement Amendments of 1988 (CLIA-88) as qualified to perform moderate and/or high complexity laboratory testing. Bev Novoa MD LAB - MICRO GENERAL ORDERABL ES Performing Organization Address City/State/ZIP Code Phon e Number UR LABORATORY [facility] [place] [address] Care Lab [address] [facility], Room M309 (ABNORMAL) CBC with platelets and differential (11/30/2021 4:15 PM CDT) [facility] gist Method Time Signature WBC Count 9.1 [...] City/State/ZIP Code Phon e Number UR LABORATORY [facility] [place] [address] Care Lab [address] [facility], Room M309 Adult Type and Screen (11/30/2021 4:15 PM CDT) [facility] gist Method Time Signature ABO/RH(D) O POS 11/30/2021 UR BLOOD 4:00 PM CDT BANK Antibody Negative Negative 11/30/2021 UR BLOOD Screen 4:00 PM CDT BANK SPECIMEN [id number] 11/30/2021 UR BLOOD EXPIRATION 4:00 PM CDT BANK DATE Specimen Anatomical Collection Method / Collection Time Recei melvi Time (Source) Location / Volume Laterality Blood STRUCTURE OF LEFT Venipuncture / 11/30/2021 4:15 11/30 4:44 UPPER LIMB / Unknown PM CDT PM CDT Unknown Bev Novoa MD LAB - BLOOD BANK TEST ORDER Performing Organization Address City/State/ZIP Code Phon e Number UR BLOOD BANK [facility] [place] [address] Components Lab [address] [facility], Room M301 (ABNORMAL) Wet prep (11/30/2021 [...] MICRO GENERAL ORDERABL ES Performing Organization Address City/State/[facility] Phon e Number UR LABORATORY [facility] [place] [address] [address] [place] [address], Room M309 Group B strep PCR (11/30/2021 4:11 PM CDT) Analysis Performed At [facility] Group B Strep Negative Negative 12/01/2021 UU [...] - 12/01/2021 8:59 PM C DT The CepCircle Cardiovascular Imagingid Xpert GBS LB Assay, performe d on the Friday?? Instrument Systems, is a qualitative in vitro [...] or monitor treatment for GBS infections. The [employer] Xpert GBS LB Ass ay is intended for use in hospital, reference or state laboratory settings. The device is not intended for kvxep-ay-oene use. Bev Novoa MD LAB - MICRO GENERAL ORDERABL ES Performing Organization Address City/State/ZIP Code Phon e Number UU IDD LABORATORY [facility] [place] [phone] Diag. Lab [address] [facility], Room D297 [facility] US Comprehensive Single (11/30/2021 2:27 PM [...] EDJEANNIE hubbard Date: 11/30/2021 1:26pm Pat. NO: [id number] Referring ??MD: CRISTEL JEAN Site: [facility] Er Manager: Kaia Tate RDMS : 1985 Age: 36 [...] 1 lb 5 ?oz EFW by ?Hadlock ([id number]) Head / Face / Neck Biometry: Petrophysicist ? 5.8 ? mm CM ?2.8 ? [...] cava. Inferior vena cava. 3-vessel ? view. 5-mtckbm-dshpuhm view. Cardiac position. Cardiac size. Cardiac rhythm. [...] ultrasound-indicated cerclage at this time. [facility] was notified and the case was discussed [...] Pat. Name:Kathy JIANG Date:11/30/2021 1:26pm Pat. NO: [id number] MD:DANNY PEÑA [facility]Kaia Tate RD MS :1985Age:36 INDICATION Short [...] 1 lb 5 oz EFW by Hadlock ([id number]) Head / Face / Neck Biometry: Petrophysicist 5.8 mm CM 2.8 mm Nasal bone [...] vena cava. Inferior vena cava. 3-vessel view. 2-dpdcph-ruwsqvy view. Cardiac po sition. Cardiac size. Cardiac [...] ultrasound-indicated cerclage at this time. [facility] was notified and the case was discussed [...] 22 mm by transvaginal imaging. July [facility] US ORDERABLES LAB RESULT - HIM SCAN [...] ype Group Dates [place] [id number] 2021-Prese [phone] [address] [place] [address] Advance Directives For more information, please contact: [phone] Latest Code Status on File Code Status [...] patient/ legal de cision maker Care Teams Washroom Attendant Relationship Specialty Start Date End Date No Ref-Primary, Physician PCP - General 02/02/21
--- OUTSIDE RECORDS SUMMARY | 2022-02-28 13:23 | XMS_ITS | Encounter Summary ---
:1985 Author Organization [place] Address [address] [place] [address] Care Team Providers Name Role Phone No Ref-Primary, Physician Primary Care Provider [phone] Reason for Visit Reason Comments Labor Auth/Cert Specialty Diagnoses / Procedures Referred By Contact Refer red To Contact dive superintendent Diagnoses Cervical shortening Cervical shortening Ur 4bob [address] [place] [address] Phone: Referral ID Status Reason Start Date Expiration Date Visits Requ ested Visits Authorized [id number] 1 1 Encounter Details Date Type Department Care Team Description 12/01/2021 Surgery [facility] Jacqueline Damon AGE, CERVIX, [facility] Birthplace DO Anca [facility]IN[facility] APPROACH [address] [facility] [address] [place] [address] [address] [place] [address] (Wo rk) Surgery Details Date/Time [...] documented in this encounter Discharge Summaries Jacqueline Damno DO - 12/01/2021 10:34 AM CDT [facility] Discharge Summary Neyda Stauffer Age: [...] [facility] She was admitted to the [facility] for US-indicated cerclage placement. Hospital Course: Patient [...] Damon DO FACOG Maternal Medicine Specialist Pager: [phone] documented in this encounter Discharge Instructions Discharge InstructionsMarjorie Kenney RN - 12/01/2021 2:52 PM CDT Undelivered Patients Discharge Instructions: Slovenian La vieron por: cervical cerclage placement Consultamos a: Maternal Medicine Le hicieron/recibi?? (examen o medicamento):cervical cerclage Dieta: Drink 8 to 12 glasses of liquids (milk, juice, water) every day. You may eat meals and snacks. Actividad: Call your doctor or nurse junior programmer if your baby is moving less than [...] roly y otrapor roly hora o m??s. [place] beb?? (en adelante): Contracciones (tirantez) con menos [...] issue. Pt stable to transfer back to [facility] for remainder of recovery. IAT Jacqueline Damon DO - 12/01/2021 8:11 AM CDT [facility]FM Antepartum Progress Note Subjective: Today, she is feeling well. Denies contractions, leaking of fluid, vaginal bleeding, or decreased movement. motor vehicle parts interpreter used via telephone. Objective: Vitals: 11/30/21 2130 [...] accels, no decels, appropriate for gestational age [place]: no contractions Ultrasound, 12/01/2021: 1) Rogers intrauterine [...] were answered to her satisfaction with a motor vehicle parts interpreter. # Short cervix - Consent as above [...] Damon DO - 11/30/2021 5:00 PM CDT [facility] OB History and Physical Neyda Stauffer Age: [age] year old Date of : 1985 CC: Shortened cervix Phone motor vehicle parts interpreter present HPI: Neyda Stauffer is a 36 [...] Status: No results found for: GBS Ultrasounds [facility] US Comprehensive Single Narrative: Comprehensive Pat. Name: NEYDA JIANG Study Date: 11/30/2021 1:26pm Pat. NO: [id number] Referring MD: DANNY JEAN Site: [facility] Format Proofreader: Kaia Tate RDMS : 1985 Age: 36 [...] 5d Hadlock Humerus 38.3 mm 23w 4d [facility] Weight Calculation: EFW 609 g 56% Hadlock EFW (lb,oz) 1 lb 5 oz EFW by Hadlock ([id number]) Head / Face / Neck Biometry: Validation Engineer 5.8 mm CM 2.8 mm Nasal bone [...] vena cava. Inferior vena cava. 3-vessel view. 5-vstfiw-wzkpsom view. Cardiac position. Cardiac size. Cardiac rhythm. [...] mod variability, + accelerations, occasional variable decelerations [place]: Quiet, no contractions Assessment Ms. Neyda Stauffer is a 36 year old , at 23w2d by LMP c/w 1st trimester US admitted for US-indicated cerclage for shortened cervix. 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 Nelson Novoa MD AGENT CONTRACT CLERK, PGY-3 11/30/2021, 5:00 PM Physician Attestation Jaqcueline Davis DO, DO, saw and evaluated Neyda [...] the morning. NST: reassuring for gestational age [place]: quiet Jacqueline Damon DO Date of Service [...] Damon DO FACOG Maternal Medicine Specialist Pager: [phone] Plan of Care - Angelica Gastelum RN [...] With: patient Overall Patient Progress: improving VSS. [place] shows no contractions. FHTs AGA. Neyda denies [...] 5:49 PM CDT Data: Patient presented to [facility] at 1510. Reason for maternal/ assessment per [...] Code Phon e Number UU IDD LABORATORY [facility] [place] [place] [address] Diag. Lab [address] [facility] [place], Room D297 UA reflex to Microscopic (11/30/2021 [...] UR LABORATORY mg/dL 5:19 PM CDT Specific [place] 1.008 1.003 - 11/30/2021 UR LABORATOR Y [...] City/State/ZIP Code Phon e Number UR LABORATORY [facility] [place] [address] Care Lab [address] [facility], Room M309 Asymptomatic COVID-19 Virus (Coronavirus) by [...] exposure or clinical presentation sugges ts COVID-19. ??[facility] are certified under the Clinical Laborat ory Improvement Amendments of 1988 (CLIA-88) as qualified to perform moderate and/or high complexity laboratory testing. Bev Novoa MD LAB - MICRO GENERAL ORDERABL ES Performing Organization Address City/State/ZIP Code Phon e Number UR LABORATORY [facility] [place] [address] Care [address] [place] [address], Room M309 Adult Type and Screen (11/30/2021 4:15 PM CDT) [facility] Method Time Signature ABO/RH(D) O POS 11/30/2021 UR BLOOD 4:00 PM CDT BANK Antibody Negative Negative 11/30/2021 UR BLOOD Screen 4:00 PM CDT BANK SPECIMEN [id number] 11/30/2021 UR BLOOD EXPIRATION 4:00 PM CDT BANK DATE Specimen Anatomical Collection Method / Collection Time Recei melvi Time (Source) Location / Volume Laterality Blood STRUCTURE OF LEFT Venipuncture / 11/30/2021 4:15 11/30 4:44 UPPER LIMB / Unknown PM CDT PM CDT Unknown Bev Novoa MD LAB - BLOOD BANK TEST ORDER Performing Organization Address [facility] Phon e Number UR BLOOD BANK [facility] [place] [address] Components Lab [address] [facility], Room M301 (ABNORMAL) CBC with platelets and differential (11/30/2021 4:15 PM CDT) [facility] Method Time Signature WBC Count 9.1 [...] City/State/ZIP Code Phon e [place] [address] Care Lab [address] [facility], Room M309 Group B strep PCR (11/30/2021 [...] - 12/01/2021 8:59 PM C DT The Verve Mobileid Xpert GBS LB Assay, performe d on the WorkVoices?? Instrument Systems, is a qualitative in vitro [...] or monitor treatment for GBS infections. The CepOoyalaid Xpert GBS LB Ass ay is intended for use in hospital, reference or state laboratory settings. The device is not intended for wulni-zz-pmnz use. Bev Novoa MD LAB - MICRO GENERAL ORDERABL ES Performing Organization Address City/State/ZIP Code Phon e Number UU IDD LABORATORY [facility] [place] [address] Diag. Lab [address] [facility] [place], Room D297 (ABNORMAL) Wet prep (11/30/2021 4:11 [...] City/State/ZIP Code Phon e Number [place] [address] Care Lab [address] [facility], Room M309 documented in this encounter Visit [...] after each naloxone dose. Consider transfer to [facility] if patient respiratory parameters hav e not [...]
Antepartum documented in this encounter Care Teams Project Development Coordinator Relationship Specialty Start Date End Date No Ref-Primary, Physician PCP - General 02/02/21 documented as of this encounter
--- OUTSIDE RECORDS SUMMARY | 2022-02-28 13:23 | XMS_ITS | Encounter Summary ---
:1985 Author Organization [place] Address [address] [facility] [place] [address] Care Team Providers Name Role Phone No Ref-Primary, Physician Primary Care Provider [phone] Reason for Visit Reason Comments Labor Auth/Cert Specialty Diagnoses / Procedures Referred By Contact Refer red To Contact production mechanic tin cans Diagnoses Cervical shortening Cervical shortening Ur 4bob [address] [place] [address] Phone: Referral ID Status Reason Start Date Expiration Date Visits Requ ested Visits Authorized [id number] 1 1 Encounter Details Date Type Department Care Team Description 11/30[facility]2021 [facility] C[facility] 12/01/2021 [facility] Birthplace DO Anca in second trimester [address] (Primary Dx) [place], [place] [address] [address] [place], [place] [phone] [address] Social History Tobacco Use Types Packs/Day [...] Damon DO - 12/01/2021 10:34 AM CDT [facility] Discharge Summary Neyda Stauffer Age: [...] by transvaginal ultrasound on repeat ultrasound today withMFM. She was admitted to the [facility] for US-indicated cerclage placement. Hospital Course: [...] activities for this patient. Jacqueline Damon DO [facility] Maternal Medicine Specialist Pager: [phone] documented in this encounter Discharge Instructions Discharge InstructionsMarjorie Kenney RN - 12/01/2021 2:52 PM CDT Undelivered Patients Discharge Instructions: [place] La vieron por: cervical cerclage placement Consultamos a: Maternal Medicine Le hicieron/recibi?? (examen o medicamento):cervical cerclage Dieta: Drink 8 to 12 glasses of liquids (milk, juice, water) every day. You may eat meals and snacks. Actividad: Call your doctor or nurse switch maker if your baby is moving less than [...] roly y otrapor roly hora o m??s. [place] beb?? (en adelante): Contracciones (tirantez) con menos [...] issue. Pt stable to transfer back to [facility] for remainder of recovery. IAT Jacqueline Damon, DO - 12/01/2021 8:11 AM CDT MFM Antepartum Progress Note Subjective: Today, she is feeling well. Denies contractions, leaking of fluid, vaginal bleeding, or decreased movement. furniture mechanic used via telephone. Objective: Vitals: 11/30/21 2130 [...] accels, no decels, appropriate for gestational age [place]: no contractions Ultrasound, 12/01/2021: 1) Rogers intrauterine [...] were answered to her satisfaction with a furniture mechanic. # Short cervix - Consent as above [...] Rolle MD Maternal Medicine Fellow Physician Attestation I, Jacqueline Damon DO, saw and evaluated Neyda Stauffer with [...] Damon DO - 11/30/2021 5:00 PM CDT [facility] OB History and Physical Neyda Stauffer Age: [age] year old Date of : 1985 CC: Shortened cervix Phone furniture mechanic present HPI: Neyda Stauffer is a 36 [...] Status: No results found for: GBS Ultrasounds [facility] US Comprehensive Single Narrative: Comprehensive Pat. Name: NEYDA JIANG Study Date: 11/30/2021 1:26pm Pat. NO: [id number] Referring MD: DANNY JEAN Site: [facility] Hand Cigar Maker: Kaia Tate RDMS : 1985 Age: 36 [...] 5d Hadlock Humerus 38.3 mm 23w 4d [facility] Weight Calculation: EFW 609 g 56% Hadlock EFW (lb,oz) 1 lb 5 oz EFW by Hadlock ([id number]) Head / Face / Neck Biometry: Aerobics Instructor 5.8 mm CM 2.8 mm Nasal bone [...] vena cava. Inferior vena cava. 3-vessel view. 1-afjjgp-khmxhye view. Cardiac position. Cardiac size. Cardiac rhythm. [...] ultrasound-indicated cerclage at this time. [facility]place at [facility] was notified and the case was [...] encounter in the care of Neyda Peñamilethao Stauffer, includin minutes reviewing the patient's chart [...] mod variability, + accelerations, occasional variable decelerations [place]: Quiet, no contractions Assessment Ms. Neyda Stauffer is a 36 year old , at 23w2d by LMP c/w 1st trimester US admitted for US-indicated cerclage for shortened cervix. 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 Nelson Novoa MD GAUGE OPERATOR, PGY-3 11/30/2021, 5:00 PM Physician Attestation Jacqueline [...] the morning. NST: reassuring for gestational age [place]: quiet Jacqueline Damon DO Date of Service (when I saw the patient): 11/30/21 Time Spent on this Encounter I, Jacqueline Damon DO, spent a total of 30 minutes [...] was diagnosed with a short cervix at [facility], 22mm. She has history of delivery [...] Damon DO FACOG Maternal Medicine Specialist Pager: [phone] Plan of Care - Angelica Gastelum RN [...] With: patient Overall Patient Progress: improving VSS. [place] shows no contractions. FHTs AGA. Neyda denies [...] 5:49 PM CDT Data: Patient presented to [facility] at 1510. Reason for maternal/ assessment [...] Code Phon e Number UU IDD LABORATORY [facility] [place] [place] [id number] Diag. Lab [address] [facility], Room D297 UA reflex to Microscopic (11/30/2021 4:44 PM CDT) [facility] gist Method Time Signature Color Urine Straw Colorless, 11/30/2021 UR LABORATORY Straw, Light 5:19 PM CDT Yellow, Yellow Appearance Urine Clear Clear 11/30/2021 UR LABORATOR Y 5:19 PM CDT Glucose Urine Negative Negative 11/30/2021 UR LABORATORY mg/dL 5:19 PM CDT Bilirubin Urine Negative Negative 11/30/2021 UR LABORATORY 5:19 PM CDT Ketones Urine Negative Negative 11/30/2021 UR LABORATORY mg/dL 5:19 PM CDT Specific [place] 1.008 1.003 - 11/30/2021 UR LABORATOR Y [...] City/State/ZIP Code Phon e Number UR LABORATORY [facility] [place] [address] Care Lab [address] [facility], Room M309 Asymptomatic COVID-19 Virus (Coronavirus) by [...] exposure or clinical presentation sugges ts COVID-19. ??[facility] Laboratories are certified under the Clinical Laborat ory Improvement Amendments of 1988 (CLIA-88) as qualified to perform moderate and/or high complexity laboratory testing. Bev Novoa MD LAB - MICRO GENERAL ORDERABL ES Performing Organization Address City/State/ZIP Code Phon e Number UR LABORATORY [facility] [place] [address] Care Lab [address] [facility], Room M309 Adult Type and Screen (11/30/2021 4:15 PM CDT) Patholo gist Method Time Signature ABO/RH(D) O POS 11/30/2021 UR BLOOD 4:00 PM CDT BANK Antibody Negative Negative 11/30/2021 UR BLOOD Screen 4:00 PM CDT BANK SPECIMEN [id number] 11/30/2021 UR BLOOD EXPIRATION 4:00 PM CDT BANK DATE Specimen Anatomical Collection Method / Collection Time Recei melvi Time (Source) Location / Volume Laterality Blood STRUCTURE OF LEFT Venipuncture / 11/30/2021 4:15 11/30 4:44 UPPER LIMB / Unknown PM CDT PM CDT Unknown Bev Novoa MD LAB - BLOOD BANK TEST ORDER Performing Organization Address City/State/ZIP Code Phon e Number UR BLOOD BANK [facility] [place] [address] Components Lab [address] [facility], Room M301 (ABNORMAL) CBC with platelets and differential (11/30/2021 4:15 PM CDT) [facility] gist Method Time Signature WBC Count [...] City/State/ZIP Code Phon e Number UR LABORATORY [facility] [place] [address] Care Lab [address] [facility], Room M309 Group B strep PCR (11/30/2021 [...] - 12/01/2021 8:59 PM C DT The DrawQuest Xpert GBS LB Assay, performe d on the Crisp Media?? Instrument Systems, is a qualitative in vitro [...] or monitor treatment for GBS infections. The DrawQuest Xpert GBS LB Ass ay is intended for use in hospital, reference or state laboratory settings. The device is not intended for gqbou-ed-ialu use. Bev Novoa MD LAB - MICRO GENERAL ORDERABL ES Performing Organization Address City/State/ZIP Code Phon e Number UU IDD LABORATORY [facility] [place] [place] [address] Diag. Lab [address] [facility], Room D297 (ABNORMAL) Wet prep (11/30/2021 4:11 [...] City/State/ZIP Code Phon e Number UR LABORATORY [facility] [place] [address] Care Lab [address] [facility], Room M309 documented in this encounter Visit Diagnoses Diagnosis Cervical shortening in second trimester - Primary Cervical shortening, antepartum conditio n or complication Cervical shortening documented in this encounter Admitting Diagnoses Diagnosis [...] MIN PRN, op ioid reversal, Starting on Pikny 12/01/21 at 1114, Administer intravenous route when [...] after each naloxone dose. Consider transfer to [facility] if patient respiratory parameters hav e [...]
Antepartum documented in this encounter Care Teams Plastic Manager Relationship Specialty Start Date End Date No Ref-Primary, Physician PCP - General 02/02/21 documented as of this encounter
--- OUTSIDE RECORDS SUMMARY | 2022-02-28 13:24 | XMS_ITS | Encounter Summary ---
:1985 Author Organization [place] Address [address] [place] [address] Care Team Providers Name Role Phone No Ref-Primary, Physician Primary Care Provider [phone] Reason for Referral Diagnostic Imaging Ultrasound (Priority: 1-2 Weeks) - Pending Review Specialty Diagnoses / Procedures Referred By Contact Refer red To Contact Diagnoses related condition Zakiya Jean Procedures [place] [address] [place] [address] Referral ID Status Reason Start Date Expiration Date Visits V isits Requested Authorized [id number] Pending 11/29/2021 11/29/2022 1 1 Review Reason for Visit Auth/Cert Specialty Diagnoses / Procedures Referred By Contact Refer red To Contact quality assurance assistant Diagnoses Cervical shortening Cervical shortening Ur 4bob [address] [place] [address] Phone: Referral ID Status Reason Start Date Expiration Date Visits Requ ested Visits Authorized [id number] 1 1 Encounter Details Date Type Department Care Team Description 11/30/2021 Hospital Encounter [facility] Ludmila Jean [facility] [address] [id number] related Maternal Stacie De Los Santos MD [address] [place], [place] [address] [facility] [address] [place] [address] Social History Tobacco Use Types [...] Procedure Name Priority Date/Time Associated Comments Diagnosis [facility] US COMPREHENSIVE RAMYA 11/30/2021 2:27 PM rela mikal Results for this SINGLE CDT condition procedure are i n the results section. documented in this encounter Results [facility] US Comprehensive Single (11/30/2021 2:27 PM [...] Reagan hubbard Date: 11/30/2021 1:26pm Pat. NO: [id number] Referring ??MD: CRISTEL JEAN Site: [facility] Fire Extinguisher Mechanic: Kaia aTte RDMS : 1985 Age: 36 INDICATION Short [...] 1 lb 5 ?oz EFW by ?Hadlock ([id number]) Head / Face / Neck Biometry: Molecular Biology Scientist ? 5.8 ? mm CM ?2.8 ? [...] cava. Inferior vena cava. 3-vessel ? view. 4-tqbndx-pcqlera view. Cardiac position. Cardiac size. Cardiac rhythm. [...] ultrasound-indicated cerclage at this time. [facility] at [facility] was notified and the case was discussed [...] Pat. Name:Kathy JIANG Date:11/30/2021 1:26pm Pat. NO: [id number] MD:ZAKIYA CHRISTINA PEÑA [facility]:Kaia MIKE Tate :1985Age:36 INDICATION Short cervix visualized [...] 1 lb 5 oz EFW by Hadlock ([id number]-FL) Head / Face / Neck Biometry: Molecular Biology Scientist 5.8 mm CM 2.8 mm Nasal bone [...] vena cava. Inferior vena cava. 3-vessel view. 8-rywtvm-lzzcrpk view. Cardiac po sition. Cardiac size. Cardiac [...] ultrasound-indicated cerclage at this time. [facility] was notified and the case was discussed [...] mm by transvaginal imaging. July Bruce NICOLE [facility] US ORDERABLES documented in this encounter Visit Diagnoses Diagnosis related condition Unspecified complication of , u nspecified as to episode of care documented in this encounter Care Teams Court Registry Officer Relationship Specialty Start Date End Date No Ref-Primary, Physician PCP - General 02/02/21 documented as of this encounter
--- OUTSIDE RECORDS SUMMARY | 2022-02-28 13:24 | XMS_ITS | Encounter Summary ---
:1985 Author Organization [place] Address [address] [place] [address] Care Team Providers Name Role Phone No Ref-Primary, Physician Primary Care Provider Reason for Visit Reason Comments Ultrasound L2/TV-short cervix Encounter Details Date Type Department Care Team Description 11/29/2021 PRE VISIT [facility] Sarah Beth Alejandre Ultra sound (L2/TV-short Maternal Medicine M, RN cerv ix) [facility] [address] [place], [place] [address] Social History Tobacco Use Types [...] on filedocumented in this encounter Care Teams Public Relations Account Executive Relationship Specialty Start Date End Date No Ref-Primary, Physician PCP - General 02/02/21 documented as of this encounter
--- OUTSIDE RECORDS SUMMARY | 2022-02-28 13:24 | XMS_ITS | Encounter Summary ---
:1985 Author Organization [place] Address [facility] [place] [address] Care Team Providers Name Role Phone No Ref-Primary, Physician Primary Care Provider [phone] Reason for Referral Diagnostic Imaging Ultrasound (Priority: 1-2 Weeks) - Pending Review Specialty Diagnoses / Procedures Referred By Contact Refer red To Contact Diagnoses related condition BruceJuly Procedures [facility] MEDICAL [address] [place] [address] Referral ID Status Reason Start Date Expiration Date Visits V isits Requested Authorized [id number] Pending 11/29/2021 11/29/2022 1 1 Review onsultation (Priority: 1-2 Weeks) - Pending Review Specialty Diagnoses / Procedures Referred By Contact Refer red To Contact Diagnoses related condition Epijuly Rh Maternal Med [facility] [address] [facility] [address] [place] [address] [place] [address] Phone: Fax: Referral ID Status Reason Start Date Expiration Date Visits V isits Requested Authorized [id number] Pending 11/29/2021 11/29/2022 1 1 Review Encounter Details Date Type Department Care Team Description [facility], [place] r[place] related Maternal [facility]ILY[facility] condition (Pr [facility] MEDICAL Dx) Joy [address] [place], [place] [address] [address] [place], [place] [phone] (Work) [phone] Social History Tobacco Use Types Packs/Day Years [...] KERRNEYDA POWERS Date: 11/30/2021 1:26pm Pat. NO: [id number] Referring ??MD: CRISTEL JEAN Site: [facility] Processing Tech: Kaia Tate RDMS : 1985 Age: 36 [...] 1 lb 5 ?oz EFW by ?Hadlock (AVT-MW-FT-FL) Head / Face / Neck Biometry: Plasma Center Technician ? 5.8 ? mm CM ?2.8 ? [...] cava. Inferior vena cava. 3-vessel ? view. 1-etmxck-qckyzhw view. Cardiac position. Cardiac size. Cardiac rhythm. [...] ultrasound-indicated cerclage at this time. [facility] was notified and the [...] different from the original. Comprehensive Pat. Name:KERR AEDLINE BRIANJEANNIEStflorida Date:11/30/2021 1:26pm Pat. NO: [id number] MD:ZAKIYA PEÑA [facility]Kaia Tate MIKE ARRIETA :1985Age:36 INDICATION Short [...] 1 lb 5 oz EFW by Hadlock (IPB-RI-PT-FL) Head / Face / Neck Biometry: Plasma Center Technician 5.8 mm CM 2.8 mm Nasal bone [...] vena cava. Inferior vena cava. 3-vessel view. 2-kcykom-qvfwzbw view. Cardiac po sition. Cardiac size. Cardiac [...] ultrasound-indicated cerclage at this time. [facility] was notified and the [...] 22 mm by transvaginal imaging. July Bruce [facility] US ORDERABLES documented in this encounter Visit Diagnoses Diagnosis related condition - Primary Unspecified complication of , u nspecified as to episode of care related condition Unspecified complication of , u nspecified as to episode of care documented in this encounter Care Teams Licensed Vocational Nurse Relationship Specialty Start Date End Date No Ref-Primary, Physician PCP - General 02/02/21 documented as of this encounter
--- OUTSIDE RECORDS SUMMARY | 2022-02-28 13:24 | XMS_ITS | Encounter Summary ---
:1985 Author Organization [place] Address [address] [place] [address] Care Team Providers Name Role Phone No Ref-Primary, Physician Primary Care Provider [phone] Encounter Details Date Type Department Care Team [...] on filedocumented in this encounter Care Teams Companion Caregiver Relationship Specialty Start Date End Date No Ref-Primary, Physician PCP - General 02/02/21 documented as of this encounter
--- OUTSIDE RECORDS SUMMARY | 2022-02-28 13:24 | XMS_ITS | Encounter Summary ---
:1985 Author Organization [place] Address [address] [place] [address] Care Team Providers Name Role Phone No Ref-Primary, Physician Primary Care Provider [phone] Reason for Visit Auth/Cert Specialty Diagnoses / Procedures Referred By Contact Refer red To Contact precision lens technician Diagnoses labor MAternity*mary: 03/11/21/PTL labor Ur 4bob [address] [place] [address] Phone: Referral ID Status Reason Start Date Expiration Date Visits Requ ested Visits Authorized [id number] 1 1 Encounter Details Date Type Department Care Team Description 02/03/2021 Virtual Visit [facility] Leda Long [employer] [address] [place] [phone] Social History Tobacco Use Types [...] on filedocumented in this encounter Care Teams Tram Operator Relationship Specialty Start Date End Date No Ref-Primary, Physician PCP - General 02/02/21 documented as of this encounter
--- OUTSIDE RECORDS SUMMARY | 2022-02-28 13:24 | XMS_ITS | Encounter Summary ---
:1985 Author Organization [place] Address [facility] [place] [address] Care Team Providers Name Role Phone No Ref-Primary, Physician Primary Care Provider Encounter Details Date Type Department Care Team Description 11/28/[address] [facility] Scan, GenKyoTex Info Mgmt Srv cs Non-Provider [address] [place] [phone] Social History Tobacco Use Types Packs/Day Years [...] on filedocumented in this encounter Care Teams Paper Carrier Relationship Specialty Start Date End Date No Ref-Primary, Physician PCP - General 02/02/21 documented as of this encounter
--- OUTSIDE RECORDS SUMMARY | 2022-02-28 13:24 | XMS_ITS | Encounter Summary ---
:1985 Author Organization [place] Address [facility] [place] [address] Care Team Providers Name Role Phone No Ref-Primary, Physician Primary Care Provider Reason for Visit Reason Comments Rule Out Labor Auth/Cert Specialty Diagnoses / Procedures Referred By Contact Refer red To Contact amortization schedule clerk Diagnoses labor MAternity*mary: 03/11/21/PTL labor Ur 4bob [address] [place] [phone] Phone: Referral ID Status Reason Start Date Expiration Date Visits Requ ested Visits Authorized [id number] 1 1 Encounter Details Date Type Department Care Team Description 02/02/2021 - Hospital Encounter [facility] Naty Carlson MD [address] [facility] [address] [place] [address] Bacterial vaginosis in (Primar y Dx); 02/04/2021 [facility] Rebecca Nolasco MD [address] [facility] [address] [place] [address] labor in third trimester without delivery [address] [place] [address] Social History Tobacco Use Types [...] 02/04/2021 9:07 AM CDT ANTEPARTUM DISCHARGE [facility] Neyda Stauffer [id number] Date of Admission: 02/02/2021 Date of Discharge: [...] c/w first trimester US that presented to [facility] with contractions for 1 day. Patient [...] Instructions: - Follow up with your primary green ware caster this week - return precautions discussed Discharge Medications: Review of your medicines START taking Dose / Directions metroNIDAZOLE 500 MG tablet Commonly known as: FLAGYL Indication: BV Used for: Bacterial vaginosis in Dose: 500 mg Take 1 tablet (500 mg) by mouth 2 times daily for 4 days Quantity: 8 tablet Refills: 0 Where to get your medicines These medications were sent to [facility] [place], [place] - [address] [address] ?? metroNIDAZOLE 500 MG tablet August Garner MD TOW MOTOR MECHANIC PGY-2 02/04/2021 9:10 AM Nya Carlson MD, FACOG (she/her/hers) Cd Manufacturing Supervisor Department of Institutional Research Director/Women's Health [facility] [place] [employer] [facility] [address] [place] [address] [email or web address] p. [phone] f. [phone] 02/04/2021 2:48 PM documented in this encounter [...] admitted for labor as a transfer from [facility]. notable for genital HSV, failed GCT [...] discussed with Dr. Leslie. August Garner MD TOW MOTOR MECHANIC PGY-2 02/03/2021 9:56 AM The patient was [...] c/w early US admitted as OPAL from [facility] for labor evaluation. ?? # Labor [...] Continue maintenance IVF @ 125/h - S/p PATROL JUDGE consult, discussed risks/benefits of BMZ - now [...] Nolasco MD - 02/02/2021 5:46 PM CDT [facility] OB History and Physical Neyda Stauffer Age: [age] year old Date of : 1985 CC: Contractions HPI: Neyda Stauffer is a 35 year old yo at 34w5d by LMP c/w first trimester US that presented to [facility] with contractions that started early this AM. They were painful. Patienthad a positive FFN, and was noted to be dilated to 3-4/60/0 at outside hospital. She was started on a mpicillin for GBS prophylaxis, and given fluid resuscitation. She was transferred to [facility] for further management On arrival, patient [...] 150, moderate variability, + accelerations, no decelerations [place]: 3 contractions in 10 minutes Assessment/Plan Neyda Stauffer is a 35 year old yo at 34w5d by LMP c/w first trimester US that presented to [facility] with contractions for 1 day with [...] with the treatment plan. August Garner MD TOW MOTOR MECHANIC PGY-2 02/02/2021 6:57 PM Staff MD Note I appreciate the note by Dr. Garner. Any necessary changes have been made by me. I saw and evaluated the patient and agree with the findings and plan of care as documented in the note. Rebecca Nolacso MD documented in this encounter Miscellaneous Notes [...] room 471 at 1702, by ambulance from [facility]. Patient is a . record reviewed. [...] as reason for admission. Action: Report from paper tube grader, RN obtained at 1710 and care of [...] with plan. Patient denies pain currently. Using Health Promotion Specialist via IPAD. Provider Notification - Coty Harden RN - 02/02/2021 5:52 PM CDT 02/02/21 175 Provider Notification Provider Name/Title Dr. Garner Method of Notification At Bedside Request Evaluate in Person Notification Reason TERESAE performing SVE: /1, collecting labs, cephalic per U/S. Plan to admit patient and for NICU consult. Patient would like to have NICU consult to discuss Betamethasone with PATROL JUDGE. documented in this encounter Plan of Treatment [...] or clinical presentation sugges ts COVID-19. ??[facility] [employer] are certified under the Clinical Laborat ory Improvement Amendments of 1988 (CLIA-88) as qualified to perform moderate and/or high complexity laboratory testing. Katya Salazar MD LAB - MICRO GENERAL ORDERABL ES Performing Organization Address City/State/ZIP Code Phon e Number [place] [phone] Care Lab [address] [facility], Room [address]309 Chlamydia trachomatis/Neisseria gonorrhoeae by PCR (02/02/2021 6:53 PM CDT) [facility] Method Time Signature Chlamydia Negative Negative 02/03/2021 [facility] IDD Trachomatis 1:01 PM CDT LABORATORY Comment: Negative for C. trachomatis rRNA by boyce scription mediated amplification. A negative result by chief of safety and protection media mikal amplification does not preclude the presence of infection because results are dependent on proper and adequate collection, absence of inhibitors and sufficient rRNA to be detected. Neisseria gonorrhoeae Negative Negative 02/03/2021 1:0 1 PM CDT [facility] LABORATORY Comment: Negative for N. gonorrhoeae rRN A by chief of safety and protection mediated amplification. A negative result by chief of safety and protection mediate d amplification does not preclude the [...] MICRO GENERAL ORDERABL ES Performing Organization Address City/State/[facility] Code Phon e Number U[facility] IDD LABORATORY [facility] [place] [place] [phone] [facility], [address]297 [facility] IDD LABORATORY [facility] Infectious [place], [place] [phone] Diseases Diagnostic [phone], [facility] Lab (IDDL) [address] [facility], Room [address]297 Drug abuse scrn 7 UR (/) (RH, SH, UR) (02/02/2021 6:37 PM CDT) [facility] Method Time Signature Amphetamines Screen Screen 02/02/2021 [...] City/State/ZIP Code Phon e Number UR LABORATORY [facility] [place] [phone] Care Lab [address] [facility], Room M309 Group B strep PCR (02/02/2021 [...] - 02/03/2021 8:38 PM C DT The CepClear[employer]id Xpert GBS LB Assay, performe d on the Hit the Mark?? [employer], is a qualitative in vitro diagnostic [...] or monitor treatment for GBS infections. The Intersystems Internationalid Xpert GBS LB Ass ay is intended for use in hospital, reference or state laboratory settings. The device is not intended for kjnge-bp-lzmh use. August Garner MD LAB - MICRO GENERAL ORDERABL ES Performing Organization Address City/State/ZIP Code Phon e Number UU IDD LABORATORY [facility] [place] [place] [address] [facility], Room [address]297 UU IDD LABORATORY [facility] Infectious [place], [place] [phone] Diseases Diagnostic [phone], [facility] Lab (IDDL) [address] [facility], Room D297 (ABNORMAL) CBC with platelets and differential (02/02/2021 6:09 PM CDT) [facility] Method Time Signature WBC Count 9.8 4.0 [...] LAB - BLOOD ORDERABLES Performing Organization Address City/[facility]/ZIP Code Phon e Number UR LABORATORY [facility] [place] [phone] [place] [address], Room [address]309 Adult Type and Screen (02/02/2021 6:09 PM CDT) achvr Method Time Signature ABO/RH(D) O POS 02/02/2021 UR BLOOD 5:30 PM CDT BANK Antibody Negative Negative 02/02/2021 UR BLOOD Screen 5:30 PM CDT BANK SPECIMEN [id number] 02/02/2021 UR BLOOD EXPIRATION 5:30 PM CDT BANK DATE Specimen Anatomical Collection Method / Collection Time Recei melvi Time (Source) Location / Volume Laterality Blood STRUCTURE OF LEFT Venipuncture / 02/02/2021 6:09 02/02 6:27 UPPER LIMB / Unknown PM CDT PM CDT Unknown August Garner MD LAB - BLOOD BANK TEST ORDER Performing Organization Address City/[facility]/ZIP Code Phon e Number UR BLOOD BANK [facility] [place] [address] Components Lab [address] [place] [address], Room M301 Treponema Abs w Reflex to [...] City/State/ZIP Code Phon e Number [place] [address] CORE/PROT/ENDO Core/Prot/Endo [address] [facility], Room 3-[address] [facility] SPECIALTY CORE [facility] [place] Lab [address], [facility] [address] [facility], Room L271-5 documented in this encounter Visit [...] mcg 200 mcg, Intramuscular, EVERY 2 HOURS [address] N, ONLY for uterine atony with significant [...] 1723, Administer intramuscular if an intravenous ro cantwell is not available and notify provider when [...] 1723, Administer intramuscular if an intravenous ro cantwell is not available and notify provider when [...] flush 3 mL 2046 (Given - Provider: uL Toro RN) 0034 (Not Given - Provider: [...] mcg 200 mcg, Intramuscular, EVERY 2 HOURS [address] N, ONLY for uterine atony with significant [...]
Intrapartum documented in this encounter Care Teams Complaint Coordinator Relationship Specialty Start Date End Date No Ref-Primary, Physician PCP - General 02/02/21 documented as of this encounter
--- OUTSIDE RECORDS SUMMARY | 2022-02-28 13:24 | XMS_ITS | Encounter Summary ---
:1985 Author Organization [place] Address [address] [place] [address] Care Team Providers Name Role Phone No Ref-Primary, Physician Primary Care Provider [phone] Reason for Visit Reason Comments Ultrasound L2/TV - short cervix on outs claire ultrasound Auth/Cert Specialty Diagnoses / Procedures Referred By Contact Refer red To Contact cnc operator programmer Diagnoses Cervical shortening Cervical shortening Ur 4bob [address] [place] [address] Phone: Referral ID Status Reason Start Date Expiration Date Visits Requ ested Visits Authorized [id number] 1 1 Encounter Details Date Type Department Care Team Description 11/30/2021 Office Visit [facility] Reji Barrera [place] [address] [place], [place] [phone] Short cervical length during , second trimester (Primary Dx); Maternal Stacie De Los Santos MD [address] [facility] [address] [place] [address] History of delivery, currently gaby matthews, second trimester [facility] [place] [address] [place], [place] [address] Social History Tobacco Use Types [...] 11/30/2021 2:00 PM CDT Neyda presents to [facility] for L2/TV due to short cervix on outside scan. Dr. Vazquez reviewed ultrasound and met with patient. Pt will go to L&D for cerclage placement. live games dealer utilized via Ipad for entire visit. [facility]. Rebecca Chavarria RN documented in this encounter Plan of Treatment Not on filedocumented as of this encounter Visit Diagnoses Diagnosis Short cervical length during , second trimester - Primary History of delivery, currently p regnant, second trimester documented in this encounter Care Teams Front End Engineer Relationship Specialty Start Date End Date No Ref-Primary, Physician PCP - General 02/02/21 documented as of this encounter
[2022-02-28 13:34] VITALS: BP 120/68; PULSE 98; RESP 18; TEMP 36.9
[2022-02-28 13:49] VITALS: BP 114/60; PULSE 109
[2022-02-28 13:51] LABS: Hematocrit 30.8 % (33.0-51.0); Hemoglobin* 10.1 gm/dL (12.0-16.0); Mean Corpuscular HGB Conc 33 gm/dL (32-36); Mean Corpuscular Hemoglobin 27 pg (26-34); Mean Corpuscular Volume 83 fL (80-100); Platelet Count* 324 K/uL (140-440); Red Blood Count 3.71 m/uL (4.00-5.20); White Blood Count* 7.14 K/uL (4.50-11.00)
[2022-02-28 14:04] LABS: Slide Review Reflex No
[2022-02-28 14:07] VITALS: BP 121/74; PULSE 93
[2022-02-28 14:14] LABS: Alanine Aminotransferase* 11 U/L (4-35); Aspartate Amino Transferase* 16 U/L (12-35); Blood Urea Nitrogen* 9 mg/dL (5-24); Creatinine* 0.5 mg/dL (0.5-1.5); Estimated Glomerular Filt Rate 126 ml/min
[2022-02-28 14:15] LABS: Total Protein Urine 24 mg/dL
[2022-02-28 14:17] LABS: Creatinine Urine 112.8 mg/dL
[2022-02-28 14:20] VITALS: BP 125/75; PULSE 104
--- NOTE | 2022-02-28 15:10 | PC.OBNST ---
NST Note NST Note Start: 02/28/22 13:07 Freq: ONCE Status: Active Protocol: Document 02/28/22 15:00 APRIL (Rec: 02/28/22 15:10 APRIL [id number]) NST Note 6 Para (# of births) 3 EDC 03/27/22 Gestational Age In Weeks & Days 36 Weeks & 1 Days High Risk Factors History of Labor/ Delivery Patient Presented with Complaint(s) of Other Other Complaints Pt. was seen in clinic and had an elevated BP. Pt. sent to OB for Obs-serial BP's and labs Reactive Yes Appropriate for Gestational Age Yes ROSA Curtis Date 02/28/22 Reactive Yes Appropriate for Gestational Age Yes ROSA Fitzgerald RN Date 02/28/22 OB NST charge Yes Complete NST Note via Write Note Yes The provider's electronic signature indicates the NST is reactive/appropriate for gestational age. *Note to provider: If an addendum is required, open the patient's chart and click on the note under the Nurse/Allied Health tab.
== END 2022-02-28 15:05 | disposition home or self-care (01) ==
LOC: OB OUT 13:21 → OB 13:25
PROVIDERS: PCP Obstetrics & Gynecology; Visit Provider Obstetrics & Gynecology
DX: Z34.93 Encounter for supervision of normal pregnancy, unspecified, third trimester (principal); Z3A.36 36 weeks gestation of pregnancy
CPT/HCPCS: 36415; 59025; 82565; 82570; 84156; 84450; 84460; 84520; 85027; 99213

== ENCOUNTER 2022-03-15 16:09 | Inpatient (IN) | payer MEDICAID, SELFPAY ==
[2022-03-15] VITALS (19 sets, daily range): BP systolic 128–150; BP diastolic 66–112; PULSE 86–134; RESP 16–18; TEMP 36.8–37.2; O2SAT 97–98; BMI 32.8
--- OUTSIDE RECORDS SUMMARY | 2022-03-15 14:34 | XMS_ITS | Encounter Summary ---
:1985 Author Organization [place] Address [address] [facility] [place] [address] Care Team Providers Name Role Phone No Ref-Primary, Physician Primary Care Provider [phone] Reason for Visit Reason Comments Labor Auth/Cert Specialty Diagnoses / Procedures Referred By Contact Refer red To Contact grain merchandiser Diagnoses Cervical shortening Cervical shortening Ur [address] [place] [address] Phone: Referral ID Status Reason Start Date Expiration Date Visits Requ ested Visits Authorized [id number] 1 1 Encounter Details Date Type Department Care Team Description [facility]/30[facility]20[facility] C[facility] 12/01/2021 [facility] DO Anca in second trimester [address] (Primary Dx) [place], [place] [address] [address] [place], [place] [phone] [address] Social History Tobacco Use Types Packs/Day [...] Damon DO - 12/01/2021 10:34 AM CDT [facility] Discharge Summary Neyda Stauffer Age: [age] year [...] today withMFM. She was admitted to the [facility] for US-indicated cerclage placement. Hospital Course: Patient [...] activities for this patient. Jacqueline Damon DO [facility] Maternal Medicine Specialist Pager: [phone] documented in this encounter Discharge Instructions Discharge InstructionsMarjorie Kenney RN - 12/01/2021 2:52 PM CDT Undelivered Patients Discharge Instructions: [place] La vieron por: cervical cerclage placement Consultamos a: Maternal Medicine Le hicieron/recibi?? (examen o medicamento):cervical cerclage Dieta: Drink 8 to 12 glasses of liquids (milk, juice, water) every day. You may eat meals and snacks. Actividad: Call your doctor or nurse contracting executive if your baby is moving less than [...] roly y otrapor roly hora o m??s. Milnor beb?? (en adelante): Contracciones (tirantez) con menos [...] issue. Pt stable to transfer back to [facility] for remainder of recovery. IAT Jacqueline Damon, DO - 12/01/2021 8:11 AM CDT MFM Antepartum Progress Note Subjective: Today, she is feeling well. Denies contractions, leaking of fluid, vaginal bleeding, or decreased movement. oyster culturist used via telephone. Objective: Vitals: 11/30/21 2130 [...] accels, no decels, appropriate for gestational age [place]: no contractions Ultrasound, 12/01/2021: 1) Rogers intrauterine [...] were answered to her satisfaction with a oyster culturist. # Short cervix - Consent as above [...] Damon DO - 11/30/2021 5:00 PM CDT [facility] OB History and Physical Neyda Stauffer Age: [age] year old Date of : 1985 CC: Shortened cervix Phone oyster culturist present HPI: Neyda Stauffer is a 36 [...] No results found for: GBS Ultrasounds [facility] US Comprehensive Single Narrative: Comprehensive Pat. Name: NEYDA JIANG Study Date: 11/30/2021 1:26pm Pat. NO: [id number] Referring MD: DANNY JEAN Site: [facility] Tailer Off: Kaia Tate RDMS : 1985 Age: 36 [...] 5d Hadlock Humerus 38.3 mm 23w 4d [facility] Weight Calculation: EFW 609 g 56% Hadlock EFW (lb,oz) 1 lb 5 oz EFW by Hadlock ([id number]) Head / Face / Neck Biometry: Insurance Plan Specialist 5.8 mm CM 2.8 mm Nasal bone [...] vena cava. Inferior vena cava. 3-vessel view. 7-fylgnm-qcsqomf view. Cardiac position. Cardiac size. Cardiac rhythm. [...] ultrasound-indicated cerclage at this time. [facility] was notified and the case was discussed [...] mod variability, + accelerations, occasional variable decelerations [place]: Quiet, no contractions Assessment Ms. Neyda Stauffer is a 36 year old , at 23w2d by LMP c/w 1st trimester US admitted for US-indicated cerclage for shortened cervix. 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 Nelson Novoa MD TRAFFIC ASSISTANT, PGY-3 11/30/2021, 5:00 PM Physician Attestation Jacqueline [...] the morning. NST: reassuring for gestational age [place]: quiet Jacqueline Damon DO Date of Service [...] was diagnosed with a short cervix at [facility], 22mm. She has history of [...] Damon DO FACOG Maternal Medicine Specialist Pager: [phone] Plan of Care - Angelica Gastelum RN [...] With: patient Overall Patient Progress: improving VSS. [place] shows no contractions. FHTs AGA. Neyda denies [...] 5:49 PM CDT Data: Patient presented to [facility] at 1510. Reason for maternal/ assessment [...] Code Phon e Number UU IDD LABORATORY [facility] [place] [id number] Diag. Lab [address] [facility], Room [address] UA reflex to Microscopic (11/30/2021 4:44 PM CDT) [facility] gist Method Time Signature Color Urine Straw Colorless, 11/30/2021 UR LABORATORY Straw, Light 5:19 PM CDT Yellow, Yellow Appearance Urine Clear Clear 11/30/2021 UR LABORATOR Y 5:19 PM CDT Glucose Urine Negative Negative 11/30/2021 UR LABORATORY mg/dL 5:19 PM CDT Bilirubin Urine Negative Negative 11/30/2021 UR LABORATORY 5:19 PM CDT Ketones Urine Negative Negative 11/30/2021 UR LABORATORY mg/dL 5:19 PM CDT Specific [place] 1.008 1.003 - 11/30/2021 UR LABORATOR Y [...] City/State/ZIP Code Phon e Number UR LABORATORY [facility] [place] [address] Care Lab [address] [facility], [address] [...] exposure or clinical presentation sugges ts COVID-19. ??[facility] are certified under the Clinical Laborat ory Improvement Amendments of 1988 (CLIA-88) as qualified to perform moderate and/or high complexity laboratory testing. Bev Novoa MD LAB - MICRO GENERAL ORDERABL ES Performing Organization Address City/State/ZIP Code Phon e Number UR LABORATORY [facility] [place] [address] Care Lab [address] [facility], [address] Adult Type and Screen (11/30/2021 4:15 PM CDT) Patholo gist Method Time Signature ABO/RH(D) O POS 11/30/2021 UR BLOOD 4:00 PM CDT BANK Antibody Negative Negative 11/30/2021 UR BLOOD Screen 4:00 PM CDT BANK SPECIMEN [id number] 11/30/2021 UR BLOOD EXPIRATION 4:00 PM CDT BANK DATE Specimen Anatomical Collection Method / Collection Time Recei melvi Time (Source) Location / Volume Laterality Blood STRUCTURE OF LEFT Venipuncture / 11/30/2021 4:15 11/30 4:44 UPPER LIMB / Unknown PM CDT PM CDT Unknown Bev Novoa MD LAB - BLOOD BANK TEST ORDER Performing Organization Address City/State/ZIP Code Phon e Number UR BLOOD BANK [facility] [place] [address] Components Lab [address] [facility], Room M301 (ABNORMAL) CBC with platelets and differential (11/30/2021 4:15 PM CDT) [facility] gist Method Time Signature WBC Count 9.1 [...] City/State/ZIP Code Phon e Number UR LABORATORY [facility] [address] Care Lab [address] [facility], [...] - 12/01/2021 8:59 PM C DT The [employer] Xpert GBS LB Assay, performe d on the [employer]um[employer]?? Instrument Systems, is a qualitative in vitro [...] or monitor treatment for GBS infections. The [employer] Xpert GBS LB Ass ay is intended for use in hospital, reference or state laboratory settings. The device is not intended for ytzah-gu-lgtz use. Bev Novoa MD LAB - MICRO GENERAL ORDERABL ES Performing Organization Address City/State/ZIP Code Phon e Number UU IDD LABORATORY [facility] [place] [address] Diag. Lab [address] [facility], Room [address]297 (ABNORMAL) Wet prep (11/30/2021 4:11 [...] City/State/ZIP Code Phon e Number UR LABORATORY [facility] [place] [address] Care Lab [address] [facility], [...] Luna RN) 50 mg, Oral, ONCE, On Pikny 12/01/21 at 1100, For 1 dose progesterone [...] PRN, Starting on Sun11/30/21 at 1552, Until Pikny 12/01/21 at 1727, Assessment: Patient does not [...] after each naloxone dose. Consider transfer to [facility] if patient respiratory parameters hav e not [...]
Antepartum documented in this encounter Care Teams Youth Corrections Officer Relationship Specialty Start Date End Date No Ref-Primary, Physician PCP - General 02/02/21 documented as of this encounter
--- OUTSIDE RECORDS SUMMARY | 2022-03-15 14:34 | XMS_ITS | Encounter Summary ---
:1985 Author Organization [place] Address [address] [place] [address] Care Team Providers Name Role Phone No Ref-Primary, Physician Primary Care Provider [phone] Reason for Visit Reason Comments Ultrasound L2/TV - short cervix on outs claire ultrasound Auth/Cert Specialty Diagnoses / Procedures Referred By Contact Refer red To Contact technical systems architect Diagnoses Cervical shortening Cervical shortening Ur [address] [place] [address] Phone: Referral ID Status Reason Start Date Expiration Date Visits Requ ested Visits Authorized [id number] 1 1 Encounter Details Date Type Department Care Team Description 11/30/2021 Office Visit [facility] Reji Barrera [place] [address] [place], [place] [phone] Short cervical length during , second trimester (Primary Dx); Maternal Stacie De Los Santos MD [address] [facility] [address] [place] [address] History of delivery, currently gaby mattehws, second trimester [facility] [address] [place], [place] [address] Social History Tobacco Use Types [...] 11/30/2021 2:00 PM CDT Neyda presents to [facility] for L2/TV due to short cervix on outside scan. Dr. Vazquez reviewed ultrasound and met with patient. Pt will go to L&D for cerclage placement. historic interpreter utilized via Ipad for entire visit. [facility] to [facility]. Rebecca Chavarria RN documented in this encounter Plan of Treatment Not on filedocumented as of this encounter Visit Diagnoses Diagnosis Short cervical length during , second trimester - Primary History of delivery, currently p regnant, second trimester documented in this encounter Care Teams Sales Account Leader Relationship Specialty Start Date End Date No Ref-Primary, Physician PCP - General 02/02/21 documented as of this encounter
--- OUTSIDE RECORDS SUMMARY | 2022-03-15 14:34 | XMS_ITS | Encounter Summary ---
:1985 Author Organization [place] Address [facility] [place] [address] Care Team Providers Name Role Phone No Ref-Primary, Physician Primary Care Provider [phone] Reason for Referral Diagnostic Imaging Ultrasound (Priority: 1-2 Weeks) - Pending Review Specialty Diagnoses / Procedures Referred By Contact Refer red To Contact Diagnoses related condition BruceJuly Procedures [facility] MEDICAL [address] [place] [address] Referral ID Status Reason Start Date Expiration Date Visits V isits Requested Authorized [id number] Pending 11/29/2021 11/29/2022 1 1 Review onsultation (Priority: 1-2 Weeks) - Pending Review Specialty Diagnoses / Procedures Referred By Contact Refer red To Contact Diagnoses related condition Epijuly Rh Maternal Med [facility] MEDICAL [address] [facility] [address] [place] [address] [place] [address] Phone: Fax: Referral ID Status Reason Start Date Expiration Date Visits V isits Requested Authorized [id number] Pending 11/29/2021 11/29/2022 1 1 Review Encounter Details Date Type Department Care Team Description [facility]/29[facility], [place] related Maternal FAMILYHEALTH condition ([facility] MEDICAL Dx) [place] [address] [place], [place] [address] [address] [place], [place] [phone] [address] (Work) [phone] Social History Tobacco Use Types Packs/Day Years [...] KERRNEYDA POWERS Date: 11/30/2021 1:26pm Pat. NO: [id number] Referring ??MD: CRISTEL JEAN Site: [facility] Asphalt Distributor Tender: Kaia Tate RDMS : 1985 Age: 36 [...] 1 lb 5 ?oz EFW by ?Hadlock ([id number]) Head / Face / Neck Biometry: Practice Assistant ? 5.8 ? mm CM ?2.8 ? [...] cava. Inferior vena cava. 3-vessel ? view. 2-tzmact-tgwdknc view. Cardiac position. Cardiac size. Cardiac rhythm. [...] ultrasound-indicated cerclage at this time. [facility] was notified and the case was [...] Name:KERR ADELINE BRIANJEANNIEStflorida Date:11/30/2021 1:26pm Pat. NO: [id number] MD:ZAKIYA PEÑA [facility]Kaia Tate MIKE ARRIETA :1985Age:36 INDICATION Short [...] 1 lb 5 oz EFW by Hadlock ([id number]) Head / Face / Neck Biometry: Practice Assistant 5.8 mm CM 2.8 mm Nasal bone [...] vena cava. Inferior vena cava. 3-vessel view. 2-qdzoeo-sdjtguj view. Cardiac po sition. Cardiac size. Cardiac rhythm. Right lung. Left lung. Diaphragm. Abdomen Abdominal wall. Cord insertion. Stomach. Kidneys. Bladder. Liver. Bowel. Genitals. Spine Cervical spine. Thoracic spine. Ojanna mbar spine. Sacral spine. Extremities / Skeleton [...] ultrasound-indicated cerclage at this time. [facility] was notified and the case was [...] 22 mm by transvaginal imaging. July Bruce [facility] US ORDERABLES documented in this encounter Visit Diagnoses Diagnosis related condition - Primary Unspecified complication of , u nspecified as to episode of care related condition Unspecified complication of , u nspecified as to episode of care documented in this encounter Care Teams Foreign Languages Professor Relationship Specialty Start Date End Date No Ref-Primary, Physician PCP - General 02/02/21 documented as of this encounter
--- OUTSIDE RECORDS SUMMARY | 2022-03-15 14:34 | XMS_ITS | Encounter Summary ---
:1985 Author Organization [place] Address [address] [place] [address] Care Team Providers Name Role Phone No Ref-Primary, Physician Primary Care Provider [phone] Encounter Details Date Type Department Care Team [...] on filedocumented in this encounter Care Teams Brim Setter Relationship Specialty Start Date End Date No Ref-Primary, Physician PCP - General 02/02/21 documented as of this encounter
--- OUTSIDE RECORDS SUMMARY | 2022-03-15 14:34 | XMS_ITS | Encounter Summary ---
:1985 Author Organization [place] Address [facility] [address] Care Team Providers Name Role Phone No Ref-Primary, Physician Primary Care Provider [phone] Reason for Visit Reason Comments Rule Out Labor Auth/Cert Specialty Diagnoses / Procedures Referred By Contact Refer red To Contact white sidewall tire buffer Diagnoses labor MAternity*mary: 03/11/21/PTL labor Ur [address]bob [address] [place] [phone] Phone: Referral ID Status Reason Start Date Expiration Date Visits Requ ested Visits Authorized [id number] 1 1 Encounter Details Date Type Department Care Team Description 02/02/2021 - Hospital Encounter [facility] Naty Carlson MD [address] [facility] [address] [place] [address] Bacterial vaginosis in (Primar y Dx); 02/04/2021 [facility] Birthplace Rebecca Nolasco MD [address] [facility] [address] [place] [address] labor in third trimester without delivery [address] [place] [address] Social History Tobacco Use Types [...] 02/04/2021 9:07 AM CDT ANTEPARTUM DISCHARGE SUMMARY [facility] Neyda Stauffer [id number] Date of Admission: 02/02/2021 Date of Discharge: 02/04/21 Admission Diagnoses: - IUP @ 34w5d - Contractions - history of Genital HSV - Obesity - Failed GCT/ passed GTT - Chlamydia in - Depression Discharge Diagnoses: - IUP at 35w0d - threatened labor - bacterial vaginosis Provider for admission: Rebecca Noalsco MD Provider for discharge: Nya Carlson MD Procedures: none Admission History: Neyda Stauffer is a 35 year old yo at 34w5d by LMP c/w first trimester US that presented to [facility] with contractions for 1 day. Patient had [...] Instructions: - Follow up with your primary flow nurse this week - return precautions discussed Discharge Medications: Review of your medicines START taking Dose / Directions metroNIDAZOLE 500 MG tablet Commonly known as: FLAGYL Indication: BV Used for: Bacterial vaginosis in Dose: 500 mg Take 1 tablet (500 mg) by mouth 2 times daily for 4 days Quantity: 8 tablet Refills: 0 Where to get your medicines These medications were sent to [facility] [place], [place] - [address] [address] ?? metroNIDAZOLE 500 MG tablet August Garner MD CAR REPAIR SUPERVISOR PGY-2 02/04/2021 9:10 AM Nya Carlson MD, FACOG (she/her/hers) Shank Piece Tacker Department of Solutions Analyst/Women's Health [facility] [employer] [facility] [address] [place] [address] [email or web address] p. [phone] f. [phone] 02/04/2021 2:48 PM documented in this encounter [...] admitted for labor as a transfer from [facility]. notable for genital HSV, failed GCT passed [...] discussed with Dr. Leslie. August Garner MD CAR REPAIR SUPERVISOR PGY-2 02/03/2021 9:56 AM The patient was [...] c/w early US admitted as OPAL from [facility] for labor evaluation. ?? # Labor - [...] Continue maintenance IVF @ 125/h - S/p SPIRITUAL CARE COORDINATOR consult, discussed risks/benefits of BMZ - now [...] Nolasco MD - 02/02/2021 5:46 PM CDT [facility] OB History and Physical Neyda Stauffer Age: [age] year old Date of : 1985 CC: Contractions HPI: Neyda Stauffer is a 35 year old yo at 34w5d by LMP c/w first trimester US that presented to [facility] with contractions that started early this AM. They were painful. Patienthad a positive FFN, and was noted to be dilated to 3-4/60/0 at outside hospital. She was started on a mpicillin for GBS prophylaxis, and given fluid resuscitation. She was transferred to [facility] for further management On arrival, patient [...] 150, moderate variability, + accelerations, no decelerations Fontanet: 3 contractions in 10 minutes Assessment/Plan Neyda Stauffer is a 35 year old yo at 34w5d by LMP c/w first trimester US that presented to [facility] with contractions for 1 day with concern [...] with the treatment plan. August Garner MD CAR REPAIR SUPERVISOR PGY-2 02/02/2021 6:57 PM Staff MD Note [...] room 471 at 1702, by ambulance from [facility]. Patient is a . record reviewed. OB [...] as reason for admission. Action: Report from aerodynamicist, RN obtained at 1710 and care of [...] with plan. Patient denies pain currently. Using Culinary Art Teacher via IPAD. Provider Notification - Coty Harden RN - 02/02/2021 5:52 PM CDT 02/02/21 175 Provider Notification Provider Name/Title Dr. Garner Method of Notification At Bedside Request Evaluate in Person Notification Reason TERESAE performing SVE: /1, collecting labs, cephalic per U/S. Plan to admit patient and for NICU consult. Patient would like to have NICU consult to discuss Betamethasone with SPIRITUAL CARE COORDINATOR. documented in this encounter Plan of Treatment [...] sugges ts COVID-19. ??[facility] [employer] are certified under the Clinical Laborat ory Improvement Amendments of 1988 (CLIA-88) as qualified to perform moderate and/or high complexity laboratory testing. Katya Salazar MD LAB - MICRO GENERAL ORDERABL ES Performing Organization Address City/State/ZIP Code Phon [place] [address] Care Lab [address] [facility], Room [address]309 Chlamydia trachomatis/Neisseria gonorrhoeae by PCR (02/02/2021 6:53 PM CDT) [facility] Method Time Signature Chlamydia Negative Negative 02/03/2021 [facility] IDD Trachomatis 1:01 PM CDT LABORATORY Comment: Negative for C. trachomatis rRNA by boyce scription mediated amplification. A negative result by senior software architect media mikal amplification does not preclude the presence of infection because results are dependent on proper and adequate collection, absence of inhibitors and sufficient rRNA to be detected. Neisseria gonorrhoeae Negative Negative 02/03/2021 1:0 1 PM CDT [facility] ID[facility] LABORATORY Comment: Negative for N. gonorrhoeae rRN A by senior software architect mediated amplification. A negative result by senior software architect mediate d amplification does not preclude the [...] MICRO GENERAL ORDERABL ES Performing Organization Address City/State/[facility] Code Phon e Number UU IDD LABORATORY [facility] [place] [place] [phone] Diag. Lab [address] [facility], Room [address]297 U[facility] IDD LABORATORY [facility] Infectious [place], [place] [phone] Diseases Diagnostic [phone], [facility] Lab (IDDL) [address] [facility], Room D297 Drug abuse scrn 7 UR (/) (RH, SH, UR) (02/02/2021 6:37 PM CDT) [facility] Method Time Signature Amphetamines Screen Screen [...] City/State/ZIP Code Phon e Number UR LABORATORY [facility] [place] [phone] Care Lab [address] [facility], Room M309 Group B strep PCR (02/02/2021 [...] - 02/03/2021 8:38 PM C DT The CepIntegrated Trade Processingid Xpert GBS LB Assay, performe d on the [place]?? Portapure Systems, is a qualitative in vitro diagnostic [...] or monitor treatment for GBS infections. The PiperScoutid Xpert GBS LB Ass ay is intended for use in hospital, reference or state laboratory settings. The device is not intended for lbfrs-fq-geyw use. August Garner MD LAB - MICRO GENERAL ORDERABL ES Performing Organization Address City/State/ZIP Code Phon e Number UU IDD LABORATORY [facility] [place] [address] Diag. Lab [address] [facility], Room [address]297 U[facility] IDD LABORATORY [facility] Infectious [place], [place] [phone] Diseases Diagnostic [phone], [facility] Lab (IDDL) [address] [facility], Room D297 (ABNORMAL) CBC with platelets and differential (02/02/2021 6:09 PM CDT) [facility] Method Time Signature WBC Count 9.8 [...] LAB - BLOOD ORDERABLES Performing Organization Address City/[facility]/ZIP Code Phon e Number UR LABORATORY [facility] [place] [phone] [address] [place] [address], Room [address]309 Adult Type and Screen (02/02/2021 6:09 PM CDT) [facility] Method Time Signature ABO/RH(D) O POS 02/02/2021 UR BLOOD 5:30 PM CDT BANK Antibody Negative Negative 02/02/2021 UR BLOOD Screen 5:30 PM CDT BANK SPECIMEN [id number] 02/02/2021 UR BLOOD EXPIRATION 5:30 PM CDT BANK DATE Specimen Anatomical Collection Method / Collection Time Recei melvi Time (Source) Location / Volume Laterality Blood STRUCTURE OF LEFT Venipuncture / 02/02/2021 6:09 02/02 6:27 UPPER LIMB / Unknown PM CDT PM CDT Unknown August Garner MD LAB - BLOOD BANK TEST ORDER Performing Organization Address City/[facility]/ZIP Code Phon e Number UR BLOOD BANK [facility] [place] [phone] Components Lab [address] [place] [address], Room M301 Treponema Abs w Reflex to [...] City/State/ZIP Code Phon [place] [address] CORE/PROT/ENDO Core/Prot/Endo [address] [facility], Room 3-580 [facility] SPECIALTY CORE [facility] [place] Lab [phone], [facility] [address] [facility], Room L271-5 documented in this encounter [...] mcg 200 mcg, Intramuscular, EVERY 2 HOURS NV N, ONLY for uterine atony with significant [...] 1723, Administer intramuscular if an intravenous ro karluk is not available and notify provider when [...] 1723, Administer intramuscular if an intravenous ro karluk is not available and notify provider when [...] Leda Benitez, RN)2016 (Given - Provider: Mariluz Price RN) 0804 [...] delivery., Indications: Group B Strep, Intrapartum 1956 (z Missed (do not use) - Provider: Mariluz Price RN - Reason: Med discontinued by Provider) sodium chloride (PF) 0.9% PF flush 3 mL 2046 (Given - Provider: Lu Toro RN) 0034 (z Missed (do not use) - Provider: Rina Molina RN - Reason: [...] 500 mg 1947 (Given - Provider: Lu Toro RN) 0756 (Given - Provider: Leda Benitez RN)2017 (Given - Provider: Mariluz Price RN) 0804 [...] allergy to any local anesthetic or any or product. Do NOT use both lidocaine intradermal/subcutaneous injection and the lidocaine cream on the same site., Intrapartum lidocaine 1 % 0.1-20 mL 0.1-20 mL, Subcutaneous, ONCE PRN, episi otomy/laceration repair, Starting on Sun02/02/21 at 1723, For 1 dose, Available for provider administration after delivery., methylergonovine (METHERGINE) injection 200 mcg 200 mcg, Intramuscular, EVERY 2 HOURS NV N, ONLY for uterine atony with significant [...]
Intrapartum documented in this encounter Care Teams Counter Caser Relationship Specialty Start Date End Date No Ref-Primary, Physician PCP - General 02/02/21 documented as of this encounter
--- OUTSIDE RECORDS SUMMARY | 2022-03-15 14:34 | XMS_ITS | Encounter Summary ---
:1985 Author Organization [place] Address [address] [place] [address] Care Team Providers Name Role Phone No Ref-Primary, Physician Primary Care Provider Reason for Visit Auth/Cert Specialty Diagnoses / Procedures Referred By Contact Refer red To Contact medical claims specialist Diagnoses labor MAternity*mary: 03/11/21/PTL labor Ur 4bob [address] [place] [address] Phone: Referral ID Status Reason Start Date Expiration Date Visits Requ ested Visits Authorized [id number] 1 1 Encounter Details Date Type Department Care Team Description 02/03/2021 Virtual Visit [facility] Leda Long Inspector Bicycle Services [address] [place] [phone] Social History Tobacco Use Types [...] on filedocumented in this encounter Care Teams Sql Database Programmer Relationship Specialty Start Date End Date No Ref-Primary, Physician PCP - General 02/02/21 documented as of this encounter
--- OUTSIDE RECORDS SUMMARY | 2022-03-15 14:34 | XMS_ITS | Encounter Summary ---
:1985 Author Organization [place] Address [address] [facility] [place] [address] Care Team Providers Name Role Phone No Ref-Primary, Physician Primary Care Provider [phone] Reason for Visit Auth/Cert Specialty Diagnoses / Procedures Referred By Contact Refer red To Contact green hide inspector Diagnoses Cervical shortening Cervical shortening Ur 4bob [address] [facility] [place] [address] Phone: Referral ID Status Reason Start Date Expiration Date Visits Requ ested Visits Authorized [id number] 1 1 Encounter Details Date Type Department Care Team Description 12/01/2021 Anesthesia Event [facility] Augustine Morgan es Birthplace MD Anthony [address] [address] [facility] [address] [place], [place] [phone] (Wo rk) Anesthesia Record Procedure Summary Procedure Name Responsible Anesthesia Start Anesthesia Stop Time Anesthesiologist Time CERCLAGE, CERVIX, Ar Morgan MD 12/01/21 0908 1029 VAGINAL APPROACH (Cervix) Events Date Time Event Comment 12/01/2021 0849 CREATIVE RECRUITER Ready for Procedure 0908 An Start 0908 [...] and realistic alternatives discussed. Questions answered and patient/footwear sales representative(s) expressed understanding. - Discussed: - [...] - 12/01/2021 9:25:00 AM Ar Morgan MD [place] ANESTHESIA Spinal Block (12/01/2021 9:41 AM CDT) [...] block prior to prepping. Ar Morgan MD [place] ANESTHESIA documented in this encounter Visit Diagnoses [...] mL/hr documented in this encounter Care Teams Sub Plant Manager Relationship Specialty Start Date End Date No Ref-Primary, Physician PCP - General 02/02/21 documented as of this encounter
--- OUTSIDE RECORDS SUMMARY | 2022-03-15 14:34 | XMS_ITS | Encounter Summary ---
:1985 Author Organization [place] Address [address] [facility] [place] [address] Care Team Providers Name Role Phone No Ref-Primary, Physician Primary Care Provider [phone] Reason for Visit Reason Comments Labor Auth/Cert Specialty Diagnoses / Procedures Referred By Contact Refer red To Contact hem marker Diagnoses Cervical shortening Cervical shortening Ur 4bob [address] [place] [address] Phone: Referral ID Status Reason Start Date Expiration Date Visits Requ ested Visits Authorized [id number] 1 1 Encounter Details Date Type Department Care Team Description 12/01/[address] [facility] Jacqueline Damon AGE, CERVIX, [facility] Birthplace DO Anca VAGINAL APPROACH [address] [facility] [address] [place] [address] [address] [place] [address] (Wo rk) Surgery Details Date/Time [...] Damon DO - 12/01/2021 10:34 AM CDT [facility] Discharge Summary Neyda Stauffer Age: [age] year [...] [facility] for US-indicated cerclage placement. Hospital Course: Patient [...] Damon DO FACOG Maternal Medicine Specialist Pager: [phone] documented in this encounter Discharge Instructions Discharge InstructionsMarjorie Kenney RN - 12/01/2021 2:52 PM CDT Undelivered Patients Discharge Instructions: Armenian La vieron por: cervical cerclage placement Consultamos a: Maternal Medicine Le hicieron/recibi?? (examen o medicamento):cervical cerclage Dieta: Drink 8 to 12 glasses of liquids (milk, juice, water) every day. You may eat meals and snacks. Actividad: Call your doctor or nurse type casting machine operator if your baby is moving [...] roly y otrapor roly hora o m??s. [place] beb?? (en adelante): Contracciones (tirantez) con menos [...] issue. Pt stable to transfer back to [facility] for remainder of recovery. IAT Jacqueline Damon DO - 12/01/2021 8:11 AM CDT MFM Antepartum Progress Note Subjective: Today, she is feeling well. Denies contractions, leaking of fluid, vaginal bleeding, or decreased movement. latexer used via telephone. Objective: Vitals: 11/30/21 2130 [...] accels, no decels, appropriate for gestational age [place]: no contractions Ultrasound, 12/01/2021: 1) Rogers intrauterine [...] were answered to her satisfaction with a latexer. # Short cervix - Consent as above [...] Damon DO - 11/30/2021 5:00 PM CDT [facility] OB History and Physical Neyda Stauffer Age: [age] year old Date of : 1985 CC: Shortened cervix Phone latexer present HPI: Neyda Stauffer is a 36 [...] Status: No results found for: GBS Ultrasounds [facility] US Comprehensive Single Narrative: Comprehensive Pat. Name: NEYDA JIANG Study Date: 11/30/2021 1:26pm Pat. NO: [id number] Referring MD: DANNY JEAN Site: [facility] Welder Tech: Kaia Tate RDMS : 1985 Age: [...] 5d [place] Humerus 38.3 mm 23w 4d [facility] Weight Calculation: EFW 609 g 56% [place] EFW (lb,oz) 1 lb 5 oz EFW by [place] ([id number]) Head / Face / Neck Biometry: Work From Home 5.8 mm CM 2.8 mm Nasal bone [...] vena cava. Inferior vena cava. 3-vessel view. 3-zskrnq-vqlctdy view. Cardiac position. Cardiac size. Cardiac rhythm. [...] ultrasound-indicated cerclage at this time. [facility] at [facility] was notified and the case was [...] mod variability, + accelerations, occasional variable decelerations [place]: Quiet, no contractions Assessment Ms. Neyda Stauffer is a 36 year old , at 23w2d by LMP c/w 1st trimester US admitted for US-indicated cerclage for shortened cervix. 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 Nelson Novoa MD COMMERCIAL MAINTENANCE TECHNICIAN, PGY-3 11/30/2021, 5:00 PM Physician Attestation Jacqueline [...] the morning. NST: reassuring for gestational age [place]: quiet Jacqueline Damon DO Date of Service [...] Damon DO FACOG Maternal Medicine Specialist Pager: [phone] Plan of Care - Angelica Gastelum RN [...] With: patient Overall Patient Progress: improving VSS. [place] shows no contractions. FHTs AGA. Neyda denies [...] 5:49 PM CDT Data: Patient presented to [facility] at 1510. Reason for maternal/ assessment [...] LABORATORY [facility] [place] [address] Diag. Lab [address] [facility] [...] UR LABORATORY mg/dL 5:19 PM CDT Specific [place] 1.008 1.003 - 11/30/2021 UR LABORATOR Y [...] [facility] [place] [address] Care Lab [address] [facility], Room M309 Asymptomatic COVID-19 Virus (Coronavirus) [...] exposure or clinical presentation sugges ts COVID-19. ??[facility] [employer] are certified under the Clinical Laborat ory Improvement Amendments of 1988 (CLIA-88) as qualified to perform moderate and/or high complexity laboratory testing. Bev Novoa MD LAB - MICRO GENERAL ORDERABL ES Performing Organization Address City/State/ZIP Code Phon e Number UR LABORATORY [facility] [place] [address] [address] [place] [address], Room M309 Adult Type and Screen (11/30/2021 4:15 PM CDT) [facility] Method Time Signature ABO/RH(D) O POS 11/30/2021 UR BLOOD 4:00 PM CDT BANK Antibody Negative Negative 11/30/2021 UR BLOOD Screen 4:00 PM CDT BANK SPECIMEN [id number] 11/30/2021 UR BLOOD EXPIRATION 4:00 PM CDT BANK DATE Specimen Anatomical Collection Method / Collection Time Recei melvi Time (Source) Location / Volume Laterality Blood STRUCTURE OF LEFT Venipuncture / 11/30/2021 4:15 11/30 4:44 UPPER LIMB / Unknown PM CDT PM CDT Unknown Bev Novoa MD LAB - BLOOD BANK TEST ORDER Performing Organization Address [facility] Phon e Number UR BLOOD BANK [facility] [place] [address] Components Lab [address] [facility], Room M301 (ABNORMAL) CBC with platelets and differential (11/30/2021 4:15 PM CDT) [facility] Method Time Signature WBC Count 9.1 4.0 [...] City/State/ZIP Code [place] [address] Care Lab [address] [facility], Room M309 Group B strep PCR [...] - 12/01/2021 8:59 PM C DT The Globitelid Xpert GBS LB Assay, performe d on the [employer]?? Instrument Systems, is a qualitative in vitro [...] or monitor treatment for GBS infections. The CepCod[employer], [employer]id Xpert GBS LB Ass ay is intended for use in hospital, reference or state laboratory settings. The device is not intended for vgcgy-mo-mwqk use. Bev Novoa MD LAB - MICRO GENERAL ORDERABL ES Performing Organization Address City/State/ZIP Code Phon e Number UU IDD LABORATORY [facility] [place] [place] [address] Diag. Lab [address] [facility] [...] City/State/ZIP Code [place] [address] Care Lab [address] [facility], Room M309 documented in this encounter [...] after each naloxone dose. Consider transfer to [facility] if patient respiratory parameters hav e [...]
Antepartum documented in this encounter Care Teams Betting Agency Counter Clerk Relationship Specialty Start Date End Date No Ref-Primary, Physician PCP - General 02/02/21 documented as of this encounter
--- OUTSIDE RECORDS SUMMARY | 2022-03-15 14:34 | XMS_ITS | Encounter Summary ---
:1985 Author Organization [place] Address [address] [place] [address] Care Team Providers Name Role Phone No Ref-Primary, Physician Primary Care Provider [phone] Reason for Referral Diagnostic Imaging Ultrasound (Priority: 1-2 Weeks) - Pending Review Specialty Diagnoses / Procedures Referred By Contact Refer red To Contact Diagnoses related condition Zakiya Jean Procedures [place] [address] [place] [address] Referral ID Status Reason Start Date Expiration Date Visits V isits Requested Authorized [id number] Pending 11/29/2021 11/29/2022 1 1 Review Reason for Visit Auth/Cert Specialty Diagnoses / Procedures Referred By Contact Refer red To Contact dust puller Diagnoses Cervical shortening Cervical shortening [facility] [address] [place] [address] Phone: Referral ID Status Reason Start Date Expiration Date Visits Requ ested Visits Authorized [id number] 1 1 Encounter Details Date Type Department Care Team Description 11/30/2021 Hospital Encounter [facility] [address] [id number] related Maternal Stacie De Los Santos MD [address] [place], [place] [address] [facility] [address] [place] [address] Social History Tobacco Use Types [...] Procedure Name Priority Date/Time Associated Comments Diagnosis [facility] US COMPREHENSIVE RAMYA 11/30/2021 2:27 PM rela mikal Results for this SINGLE CDT condition procedure are i n the results section. documented in this encounter Results [facility] US Comprehensive Single (11/30/2021 2:27 PM [...] Reagan hubbard Date: 11/30/2021 1:26pm Pat. NO: [id number] Referring ??MD: CRISTEL JEAN Site: [facility] Carpet Cleaner: Kaia Tate RDMS : 1985 Age: 36 [...] 1 lb 5 ?oz EFW by ?Hadlock ([id number]) Head / Face / Neck Biometry: Systems Management Consultant ? 5.8 ? mm CM ?2.8 ? [...] cava. Inferior vena cava. 3-vessel ? view. 8-jhxpsf-jlcetgf view. Cardiac position. Cardiac size. Cardiac rhythm. [...] ultrasound-indicated cerclage at this time. [facility] was notified and the case [...] Pat. Name:Kathy JIANG Date:11/30/2021 1:26pm Pat. NO: [id number] MD:ZAKIYA CHRISTINA PEÑA [facility]Ka[facility] MIKE Tate :1985Age:36 INDICATION Short cervix visualized [...] 1 lb 5 oz EFW by Hadlock ([id number]) Head / Face / Neck Biometry: Systems Management Consultant 5.8 mm CM 2.8 mm Nasal bone [...] vena cava. Inferior vena cava. 3-vessel view. 2-ysheme-ostaduu view. Cardiac po sition. Cardiac size. Cardiac [...] ultrasound-indicated cerclage at this time. [facility] at [facility] was notified and the case [...] mm by transvaginal imaging. July Bruce NICOLE [facility] US ORDERABLES documented in this encounter Visit Diagnoses Diagnosis related condition Unspecified complication of , u nspecified as to episode of care documented in this encounter Care Teams Ophthalmic Aide Relationship Specialty Start Date End Date No Ref-Primary, Physician PCP - General 02/02/21 documented as of this encounter
--- OUTSIDE RECORDS SUMMARY | 2022-03-15 14:34 | XMS_ITS | Encounter Summary ---
:1985 Author Organization [place] Address [facility] [place] [address] Care Team Providers Name Role Phone No Ref-Primary, Physician Primary Care Provider [phone] Encounter Details Date Type Department Care Team Description 11/28/2021 Medical Correspondence [facility] Scan, [employer] Info Mgmt Srv cs Non-Provider [address] [place] [phone] Social History Tobacco Use Types Packs/Day Years [...] on filedocumented in this encounter Care Teams Banquet Lead Relationship Specialty Start Date End Date No Ref-Primary, Physician PCP - General 02/02/21 documented as of this encounter
--- OUTSIDE RECORDS SUMMARY | 2022-03-15 14:34 | XMS_ITS | Encounter Summary ---
:1985 Author Organization [place] Address [address] [place] [address] Care Team Providers Name Role Phone No Ref-Primary, Physician Primary Care Provider [phone] Reason for Visit Reason Comments Ultrasound L2/TV-short cervix Encounter Details Date Type Department Care Team Description 11/29/2021 PRE VISIT [facility] Sarah Beth Alejandre Ultra sound (L2/TV-short Maternal Medicine M, RN cerv ix) [facility] [address] [place], [place] [address] Social History Tobacco Use Types [...] on filedocumented in this encounter Care Teams Rn Manager Relationship Specialty Start Date End Date No Ref-Primary, Physician PCP - General 02/02/21 documented as of this encounter
--- OUTSIDE RECORDS SUMMARY | 2022-03-15 14:34 | XMS_ITS | Clinical Summary ---
:1985 Author Organization [place] Address [address] [place] [address] Care Team Providers Name Role Phone No Ref-Primary, Physician Primary Care Provider [phone] Allergies No known active allergies Medications Medication Sig Dispensed Refills Start Date End Date Status MV-Min-Fe 0 A ctive Fum-FA-DHA ( 1 PO) progesterone Place 200 mg 0 Acti ve (PROMETRIUM) 200 MG vaginally At capsule Bedtime Active Problems Problem Noted Date Cervical shortening 11/30/2021 labor 02/02/2021 Estimated Date of Delivery Comments Yes 03/27/2022 Based on Ultrasound Social History Tobacco Use Types Packs/Day Years [...] to co mplete this topic 66 Years) Insurance Payer Benefit Plan / Subscriber ID Effective Phone Address T ype Group Dates [place] [id number] 2021-Prese [phone] [address] [place] [address] Advance Directives For more information, please contact: [phone] Latest Code Status on File Code Status Date Activated Date Inactivated Comments Full Code 11/30/2021 3:53 PM 12/01/2021 5:32 PM All basic an d advanced life-sustaining interventions are performed as [place] ropriate Question Answer Comments Code status determined by: Discussion with patient/ legal de cision maker Code Status History Code Status Date Activated Date Inactivated Comments Full Code 02/02/2021 5:27 PM 02/04/2021 1:58 PM All basic and advanced life-sustaining interventions are performed as [place] ropriate Question Answer Comments Code status determined by: Discussion with patient/ legal de cision maker Care Teams Chucking Lathe Operator Relationship Specialty Start Date End Date No Ref-Primary, Physician PCP - General 02/02/21
--- NOTE | 2022-03-15 16:06 | P.LDBA_ITS ---
Subjective History of Present Illness Date Seen: 03/15/22 Narrative: Patient is being admitted to Labor and Delivery for delivery. She is a 36 year old at 38 2/7 weeks gestation. Her full history and physical was dictated by Dr. Guzman on 02/28/2022. Please see this for details. Patient presents to the clinic today with concerns of pelvic pain, cervix was checked and found 5-6 cm sent to Labor and delivery for re-evaluation. At this time cervix is wanting is found 7 cm and patient is more uncomfortable. Will be admitted in labor. Comments: Expected Delivery Route/Plan H&P 02/28/22 Dr. Guzman Specific Issues/Plans Estonian-speaking, sheet rock applier needed 1. Late to care, unplanned 1st visit at 23 weeks WILL by 23 week US with unknown LMP. 2. Short cervix diagnosed at 1st appointment at 23 weeks, 1.8 cm Progesterone 200 mg PV qhs through 36 weeks Urgent MFM consult 11/30/21: CL 22mm, normal anatomy, anterior placenta no previa.? EFW 56%.? Plan: cervical cerclage same day 12/01/21:Rios cervical cerclage, one suture (knot at 12 o'clock position) Removed 02/28/22. 3. History of labor and late delivery with her last .? labor at 34 weeks and 5 days ( Admitted at [facility]) Delivered at 36 6/7 ([place]) 4. History of genital herpes Valtrex 500 mg BID recommended at 34 weeks.? However, patient was taking acyclovir 400 mg BID. Complained of vulvar burning / possible prodromal symptoms 03/10/22, no lesions on exam. Changed acyclovir to 400 mg TID per ACOG recommendations.? Will need vulvar exam to r/o herpes lesions when presenting in labor 5. Short interval , last delivery 02/17/2021 6. History of depression.? Doing well on no medication 7. Last Pap 01/30/2020:NIL + HPV Pap : 8.? Elevated BP 02/28/22, 152/77.? Normal upon repeat.? Normal HELLP labs.? Protein:creatinine 0.20 9.? Anemia with Hb 10.1 at 36 weeks.? Begin ferrous sulfate.? OB - H&P: Exam Physical Exam: Vital signs: Temp Pulse Resp BP Pulse Ox 98.3 F 117 H 16 135/79 98 03/15/22 14:17 03/15/22 15:07 03/15/22 14:17 03/15/22 15:07 03/15/22 14:16 Narrative: VITAL SIGNS: As noted above. GENERAL APPEARANCE: Alert, cooperative female in no acute distress. MOOD & AFFECT: Normal. ABDOMEN: Gravid, nontender Cervix: 7 cm/90%/vertex/-1 EXTREMITIES: Nonedematous. Well perfused. Nontender. NST: 130 beats per minute/moderate variability/positive accelerations/negative deceleration/sporadic uterine contractions OB - Problem Based A/P Additional Plan (1) : Status: Acute Plan Admit for delivery GBS negative no need for antibiotic prophylaxis, will AROM if patient desires Continuos monitoring Candidate for pain management as requested by patient Delivery/Labor/Induction Plan Plan: expectant management
[2022-03-15 16:48] LABS: Amphetamine Screen Urine Negative (Negative); Barbiturate Screen Urine Negative (Negative); Benzodiazepines Screen Urine Negative (Negative); Cannabinoid Screen Urine Negative (Negative); Cocaine Screen Urine Negative (Negative); Methadone Screen Urine Negative (Negative); Methamphetamines Screen Urine Negative (Negative); Opiate Screen Urine Negative (Negative); Oxycodone Screen Urine Negative (Negative); Phencyclidine Screen Urine Negative (Negative); Tricyclic Antidepressant Urine Negative (Negative)
[2022-03-15 17:28] LABS: SARS PCR* Negative SARS-CoV-2 (Negative)
[2022-03-15] MEDS: OXYTOCIN 10 UNIT/ML INJ IM (19:58)
--- NOTE | 2022-03-15 20:05 | PM.OBPRCVD ---
Procedure Delivery date: 03/15/22 Procedure Done: Global Events: Labor Augmentation Intrapartal Events: Labor Augmentation Delivery augmentation: rupture of membranes Delivery monitor: external FHT Route of delivery: Episiotomy description: None Laceration description: None Estimated blood loss (mL): 50 Anesthesia type: None Disposition: floor Complications: None Narrative: The patient is a 36 year-old G 6 P 3124 admitted on 03/15/2022 at 38 Weeks, 2/7 Days gestation for delivery.? Cervical exam on admission was 5-6 cm/80 % effaced/-1 station with membranes intact in vertex presentation.? Contractions were every 3-5 minutes.? heart rate demonstrated baseline 130 bpm with moderate variability, positive accelerations, negative decelerations; a category 1 tracing.? A ROM occurred at 1747 with clear fluid. ? Labor Analgesia:? None ? Pitocin:? No ? Labor onset:? 1599 ? Complete:? 1939 ? Pushing:? 1947 ? heart tones during second stage were category 1. ? At 1950 a viable female infant delivered in vertex NEETA presentation over intact perineum via spontaneous vaginal delivery.? was placed on maternal abdomen.? Cord was clamped and cut after a 30-60 second delay.? Nose and mouth were bulb suctioned.? weight pending.? 9 at 1 minute and 10 at 5 minutes.? Shoulder dystocia: No.? Nuchal cord: No. ? Placenta delivered spontaneously and complete at 1956 with a 3 vessel cord. ? Mother and were stable after delivery. ? Lacerations:? None. ? Blood loss: 50 mL. Blood loss measurement type: QBL ? Sponge and needles counts are correct. [place] Infant Gender: Female presentation: vertex Placental Delivery Description: Spontaneous Cord Description: 3 Vessels
[2022-03-15] MEDS: IBUPROFEN 600 MG TABLET PO (20:14)
[2022-03-16 00:02] VITALS: TEMP 36.7
[2022-03-16] MEDS: ACETAMINOPHEN 500 MG TABLET 1000 MG PO (00:02)
[2022-03-16 04:01] VITALS: BP 135/81; PULSE 80; RESP 16; TEMP 36.5; O2SAT 97
[2022-03-16 04:03] VITALS: TEMP 36.5
[2022-03-16] MEDS: IBUPROFEN 600 MG TABLET PO (04:03)
[2022-03-16 06:33] LABS: Hemoglobin* 9.9 gm/dL (12.0-16.0)
--- NOTE | 2022-03-16 08:25 | PC.SOCIAL ---
Pt.'s and baby's tox screen is negative, referral to manager social services due to late care. Will continue to look for meconium results, otherwise no further manager social services needed.
[2022-03-16 08:28] VITALS: BP 117/73; PULSE 84; RESP 18; TEMP 36.6; O2SAT 97
--- NOTE | 2022-03-16 08:31 | P.DS_ITS ---
DS: Providers Provider Date Seen: 03/16/22 Date of admission: 03/15/22 16:09 Primary care physician: Shannan Holder MD Admitting Clinician: Shannan Holder MD Consults: 03/15/22 16:18 Consult to Executive Director Sheltered Workshop [CONS] Routine Comment: Reason for Consult:: Substance Abuse Screening 03/15/22 16:23 Consult to Executive Director Sheltered Workshop [CONS] Routine Comment: Reason for Consult:: Substance Abuse Screening Attending Physician on discharge: Shannan Holder MD Date of Discharge: 03/16/22 DS: Diagnosis Discharge Diagnosis (1) care and examination: Status: Acute (2) Lactating mother: Status: Acute Exam Narrative: Exam Narrative: Discharge Examination? GENERAL APPEARANCE:? normal affect, alert, no distress? MOOD:? appropriate? CHEST:? clear to auscultation and percussion? HEART:? regular rate and rhythm? ABDOMEN:? soft, non-tender the uterine fundus is 2 cm Below Umbilicus, Midline and is appropriate for the stage of recovery.? PERINEUM:? no edema of the perineum and no laceration.? EXTREMITIES:? normal and no edema? Patient has no complaints? No active bleeding?? Doing well? She is requesting discharge home.? Const: Vital Signs, click to edit/add: Vital Signs - 24 hr 03/15/22 14:16 03/15/22 15:07 03/15/22 17:31 Temperature Pulse Rate 120 H 117 H 105 H Pulse Rate [Pulse Oximeter] Respiratory Rate Blood Pressure 139/89 135/79 129/85 Blood Pressure [Ri ght Arm] Pulse Oximetry 98 Oxygen Delivery Me thod 03/15/22 18:46 03/15/22 18:49 03/15/22 18:50 Temperature 98.9 F Pulse Rate 134 H 130 H Pulse Rate [Pulse Oximeter] Respiratory Rate 18 Blood Pressure 139/112 H 139/82 Blood Pressure [Ri ght Arm] Pulse Oximetry Oxygen Delivery Me thod 03/15/22 18:53 03/15/22 19:14 03/15/22 20:16 Temperature Pulse Rate 115 H 104 H Pulse Rate [Pulse Oximeter] Respiratory Rate Blood Pressure 144/86 H 146/80 H Blood Pressure [Ri ght Arm] Pulse Oximetry 98 Oxygen Delivery Me thod 03/15/22 20:31 03/15/22 20:46 03/15/22 21:01 Temperature Pulse Rate 93 104 H 99 Pulse Rate [Pulse Oximeter] Respiratory Rate Blood Pressure 134/92 H 150/76 H 130/76 Blood Pressure [Ri ght Arm] Pulse Oximetry Oxygen Delivery Me thod 03/15/22 21:16 03/15/22 21:31 03/15/22 21:46 Temperature Pulse Rate 98 99 91 Pulse Rate [Pulse Oximeter] Respiratory Rate Blood Pressure 128/75 131/66 129/69 Blood Pressure [Ri ght Arm] Pulse Oximetry Oxygen Delivery Me thod 03/15/22 22:01 03/15/22 14:17 03/15/22 17:35 Temperature 98.3 F 98.5 F Pulse Rate 86 Pulse Rate [Pulse Oximeter] Respiratory Rate 16 16 Blood Pressure 134/70 Blood Pressure [Ri ght Arm] Pulse Oximetry Oxygen Delivery Me thod 03/15/22 21:46 03/15/22 23:57 03/16/22 00:02 Temperature 98.4 F 98.6 F 98.1 F Pulse Rate Pulse Rate [Pulse Oximeter] 87 Respiratory Rate 16 Blood Pressure Blood Pressure [Ri ght Arm] 137/78 Pulse Oximetry 97 Oxygen Delivery Me thod Room Air 03/16/22 04:01 03/16/22 04:03 03/16/22 08:28 Temperature 97.7 F 97.7 F 97.9 F Pulse Rate Pulse Rate [Pulse Oximeter] 80 84 Respiratory Rate 16 18 Blood Pressure Blood Pressure [Ri ght Arm] 135/81 117/73 Pulse Oximetry 97 97 Oxygen Delivery Me thod Room Air Room Air OB - DS: Summary Hospital Course Hospital Course: Patient is a 36year old, G 6 now P 4? admitted on 03/15/22 at 39 Weeks, 0 Days gestation for labor.? She had an uncomplicated vaginal delivery.? She delivered a viable female infant.? She is breast feeding and reports things are well.? the patient has done well.? Her pain is well controlled with current medications.? She has no new complaints.? Vitals have been stable. She has remained afebrile. She is voiding without difficulty. She is passing gas and has not had a bowel movement. She is ambulating and denies any dizziness. She is planning possibly an IUD for control but unsure at this time.? Peripartum Data Infant delivery method: Vaginal Laceration description: None Episiotomy description: None complications: none Gender: Female Discharge Plan: Home Status at Discharge Functional status at discharge: independent ambulation Overall status at discharge: patient is progressing back to baseline Time Spent with Patient Time attestation: Total time spent providing and/or coordinating discharge services: Discharge Plan Discharge Disposition: Home, Self-Care Date of Admission: 03/15/22 16:09 Attending Provider on Discharge: Jil Terrazas Primary Care Provider: Shannan Holder Condition: Stable Anticipated Discharge Date/Time: 03/16/22 21:00 Discharge Medications: New docusate sodium 100 mg Capsule 100 mg PO DAILY Qty: 90 0RF Rx Instructions: Take 1-2 tablets daily as needed for constipation. ibuprofen 600 mg Tablet 600 mg PO Q6H PRNQty: 30 0RF Continued prenat.vits,marly,ruo-acoq-gakln Tablet 1 tab PO QDAY Discontinued acyclovir 400 mg tablet 400 mg PO TID Qty: 90 0RF Discharge Orders: Discharge Order (Routine); Ordered 03/16/22 Ordered By: Jil Terrazas Additional Instructions: Patient verbalized understanding of reviewed discharge instructions. Activity Level: No Restrictions and Activity as Tolerated Discharge Diet: Regular Follow Up Appointments: Shannan Holder MD [Primary Care Provider] - Forms: [employer] Info Instructions
[2022-03-16] MEDS: DOCUSATE SODIUM 100 MG CAPSULE PO (12:00)
[2022-03-16 12:25] VITALS: BP 122/76; PULSE 87; RESP 16; O2SAT 97
[2022-03-16 17:45] VITALS: BP 124/89; PULSE 94; RESP 18; TEMP 36.6; O2SAT 97
== END 2022-03-16 21:30 | disposition home or self-care (01) | DRG 806 ==
LOC: OB OUT 16:59 → OB 16:59
PROVIDERS: Admitting Provider Obstetrics & Gynecology; PCP Obstetrics & Gynecology; Visit Provider Obstetrics & Gynecology
DX: O99.02 Anemia complicating childbirth (principal); O26.873 Cervical shortening, third trimester; Z37.0 Single live birth; O98.32 Other infections with a predominantly sexual mode of transmission complicating childbirth; D64.9 Anemia, unspecified; A60.04 Herpesviral vulvovaginitis; Z3A.38 38 weeks gestation of pregnancy
CPT/HCPCS: 36415; 80306; 85018; 87635; 99213; A9270; J2590

== ENCOUNTER 2022-05-09 13:38 | Outpatient (CLI) | payer MEDICAID, SELFPAY | END 2022-05-09 13:39 | disposition home or self-care (01) | PROVIDERS: PCP Obstetrics & Gynecology; Visit Provider Obstetrics & Gynecology | DX: R30.0 Dysuria (principal) | CPT/HCPCS: 87086 ==

== ENCOUNTER 2022-06-16 13:18 | Outpatient (CLI) | payer MEDICAID, SELFPAY | END 2022-06-16 13:19 | disposition home or self-care (01) | LOC: NFLDREF 13:18 | PROVIDERS: PCP Obstetrics & Gynecology; Visit Provider Obstetrics & Gynecology | DX: L65.9 Nonscarring hair loss, unspecified (principal) | CPT/HCPCS: 84443 ==

== ENCOUNTER 2022-07-21 06:03 | Day surgery (SDC) | payer MEDICAID, SELFPAY ==
[2022-07-21] VITALS (12 sets, daily range): BP systolic 116–144; BP diastolic 68–90; PULSE 75–107; RESP 14–20; TEMP 36.1–36.6; O2SAT 96–98; BMI 29.7
[2022-07-21] MEDS: LACTATED RINGERS 1000 ML 1,000 ML 100 ML IV (06:50)
[2022-07-21 06:51] LABS: Hemoglobin* 11.6 gm/dL (12.0-16.0)
[2022-07-21 06:53] LABS: Ur HCG Qualitative* Negative (Negative)
--- NOTE | 2022-07-21 07:00 | SUR.PREOP ---
negative home covid
[2022-07-21] MEDS: BUPIVACAINE 0.5% 30 ML INJECTION (08:13)
--- NOTE | 2022-07-21 08:39 | W.ANESCHARGE ---
Anesthesia Charges Start Date/Time Anesthesia Start Date: 07/21/22 Anesthesia Start Time: 07:25 Stop Date/Time Anesthesia Stop Date: 07/21/22 Anesthesia Stop Time: 08:45
--- NOTE | 2022-07-21 08:43 | W.PM.GYNPROC ---
Procedure Note Date Seen: 07/21/22 Procedure Details: Preop diagnosis: Family planning, desire for surgical sterilization Postop diagnosis: Family planning, desire for surgical sterilization, left paratubal cyst, omental adhesion Name of procedure: Laparoscopic bilateral salpingectomy and paratubal cystectomy, lysis of adhesion Surgeon: Cleo Holder Professor Of Finance: Grazyna Nj, surgical services manager assist Complications: None EBL: 5mL Drains: Mendoza catheter, removed at completion of surgery Findings: Bimanual exam: Midline uterus of normal size, adnexa without palpable masses, pelvic exam with speculum: Cervix without any abnormal discharge or lesions, multiparous os, intra-abdominal survey: Thin omental adhesion at the right lower quadrant to the anterior abdominal wall obstructing visualization to the surgical area of interest, uterus midline of around 8 cm, bilateral ovaries within normal limits, fallopian tubes normal, left paratubal cyst of about 3cm. Patient was taken to the OR with IV fluid running and pneumatic compression stockings applied to the lower extremities. General anesthesia was obtained without difficulty. The patient was placed in the dorsal lithotomy position with Ervin type stirrups with knee bent at 30 degree angles. Patient was prepared and draped under usual sterile technique. Examination under anesthesia revealed a normal size, midline uterus. The bladder was emptied and Mendoza catheter placed. Speculum was placed in the vagina. The anterior lip of the cervix was grasped with a single-tooth tenaculum. Uterine manipulator was introduced. Two Allis clamps were applied to the periumbilical skin for manual elevation of the abdomen. Local anesthetic infiltrated to the area. A vertical skin incision was made in the umbilical fold. 5 mm Optiview trocar introduced into the peritoneal cavity without difficulty. Direct visualization confirmed intraperitoneal placement. Pneumoperitoneum was established with CO2 gas to a pressure of 15mmHg. Findings as above. An intra-abdominal survey revealed normal-appearing liver, gallbladder, spleen, and lack of any visceral or vascular injury. The Trendelenburg position was obtained to facilitate pelvic exposure. Two 5 mm trocars were inserted on the bilateral lower quadrants under direct laparoscopic visualization. The left fallopian tube was elevated away from the pelvic sidewall within all traumatic grasper. Utilizing LigaSure bipolar energy device the mesosalpinx was serially coagulated and cut until cornual region. This also included left paratubal cyst. Hemostasis was achieved. Left paratubal cyst was drained and fallopian tube was easily removed via 5 mm trocar. Fine omental adhesion was coagulated and cut, hemostasis secured. Same procedure performed on right fallopian tube. Hemostasis secured. Both fallopian tubes sent to pathology. Abdomen and pelvis were thoroughly inspected. Good hemostasis was noted at resection sites. Trocars removed under direct visualization. All instruments were removed from the abdomen and vagina. The pneumoperitoneum was released, and correct instrument counts were confirmed. Periumbilical subcutaneous tissue approximated with Vicryl 0 since it was more than 2cm in depth. Skin incisions were closed with 4-0 Monocryl sutures in a subcuticular fashion. The patient was taken to the recovery room in a stable condition. Patient will be discharged from recovery after all the criteria are met for discharge. She was given instructions regarding follow-up visit in 2 weeks at [facility]. Postop pain management, lifting restrictions, intercourse restrictions were discussed with patient before surgery all questions were answered.
--- NOTE | 2022-07-21 08:46 | W.ANESCHARGE ---
Anesthesia Charges Start Date/Time Anesthesia Start Date: 07/21/22 Anesthesia Start Time: 07:25 Stop Date/Time Anesthesia Stop Date: 07/21/22 Anesthesia Stop Time: 08:45
[2022-07-21] MEDS: LACTATED RINGERS 1000 ML 1,000 ML 50 ML IV (09:34)
== END 2022-07-21 11:00 | disposition home or self-care (01) ==
PROVIDERS: Anesthesiology; PCP Obstetrics & Gynecology; Visit Provider Obstetrics & Gynecology
PROC: (CPT 58661; principal; 2022-07-21 07:15)
DX: Z30.2 Encounter for sterilization (principal); N83.8 Other noninflammatory disorders of ovary, fallopian tube and broad ligament; K66.0 Peritoneal adhesions (postprocedural) (postinfection)
CPT/HCPCS: 58661; 58662; 49329; 00840; 00851; 36415; 81025; 85018; T1013; J0330; J1100; J1885; J2405; J2704; J2710; J3010; J3490; J7120